=== PATIENT | male | born 1935 | race Caucasian/White ===

== ENCOUNTER 2017-07-25 10:39 | Emergency (ER) | payer OTHER ==
[~2017-07-25] VITALS: Ht 172.7 cm; Wt 75.6 kg
[~2017-07-25 10:39] MED LIST: ADVIN25/60 INH; ALBU1AER9 INH; ASPI81TA28 PO; FINA5TAB4 PO; FURO-85 PO; HYDR25TA4 PO; INSUINJ12 SQ; IPRASOL4 INH; LEVE500T13 PO; LISI-729 PO; MAGN400T6 PO; NVLGI SC; OMEP20CA9 PO; OXGN; POLY335025 PO; PRAV40TA2 PO; SENN-91 PO; TIOTCAP INH
[2017-07-25 10:42] VITALS: TEMP 36.5; O2SAT 93; Ht 172.7 cm; Wt 75.6 kg
--- NOTE | 2017-07-25 11:02 | EMERGENCY ROOM VISIT NOTE ---
History Report prepared by Shubham: Sander Quispe Under the Supervision of: Dr. Fabio Weldon M.D. First contact with patient: 10:42 Chief Complaint: HYPOGLYCEMIA Stated Complaint: ILLNESS History of Present Illness The patient is an 82 year old male who presents to the Emergency Room with complaints of constant hypoglycemia starting this morning. Per the patient's daughter. the patient has in home care, and his home health care worker gave him his normal dose of insulin this morning, and then they took his blood sugar and it was 90. Additionally he became diaphoretic and more confused than normal. They called the EMS, and his blood sugar was 40 for the EMS. The daughter states that the patient was at the bus stop on his way to a retinal specialist with his caregiver, and then he was picked up by the EMS. The patient states that he is usually on 2L of oxygen at home, and he states that he is supposed to go to wound clinic to get wrappings off of his legs which were there for swelling and seeping. He additionally notes that a week and a half ago he had a fall, and he has been having back pain, though according to the daughter he has had some back x-rays which were fine. The patient states that he uses a walker and a scooter chair at home. Additionally, the patient has been urinating more frequently recently. Source of History: patient, family Onset: this morning Position: other (generalized) Quality: other (hypoglycemia) Timing: constant Associated Symptoms: + diaphoresis, + back pain Note: Associated symptoms: Urinating more frequently and more confused than normal. Review of Systems See HPI for pertinent positives and negatives. A total of ten systems were reviewed and were otherwise negative. Past Medical & Surgical Medical Problems: (1) Cellulitis and abscess of leg (2) Chronic obstructive lung disease (3) Diabetes (4) Epilepsy (5) H/O: CVA (cerebrovascular accident) (6) HTN (hypertension) (7) Implant Spinal Infusion Pump (8) CYRIL (obstructive sleep apnea) (9) PVD (peripheral vascular disease) (10) S/P ORIF (open reduction internal fixation) fracture (11) Vascular dementia Surgical Problems: (1) H/O esophagogastroduodenoscopy (2) Previous back surgery (3) S/P femoral-popliteal bypass surgery (4) Status post hip replacement Family History Diabetes mellitus MOTHER SISTER FH: Alzheimers disease BROTHER FH: COPD (chronic obstructive pulmonary disease) BROTHER Stroke MOTHER Social History Smoking Status: Former Smoker Alcohol Use: none Drug Use: none Marital Status: single Housing Status: lives alone, assisted living Occupation Status: retired Current/Historical Medications Scheduled Aspirin (Aspirin Ec), 81 MG PO QAM Doxycycline Hyclate (Doxycycline Hyclate), 100 MG PO BID Finasteride (Proscar), 5 MG PO QAM Fluticasone Prop/Salmeterol (Advair Diskus 250/50 60 Dose), 1 PUFF INH BID Furosemide (Lasix), 20 MG PO QAM Hydrochlorothiazide (Hctz), 12.5 MG PO DAILY Insulin Aspart (Novolog), 1 DOSE SC UD Insulin Detemir (Levemir), 24 UNITS SC HS Levetiracetam (Keppra), 500 MG PO BID Magnesium Oxide (Mag-Ox), 400 MG PO QAM Multiple Vitamins W/ Minerals (Preservision Areds 2), 1 CAP PO DAILY Polyethylene Glycol 3350 (Miralax), 17 GM PO DAILY Pravastatin Sodium (Pravastatin Sodium), 40 MG PO HS Thiamine Hcl (B-1), 500 MG PO DAILY Tiotropium Rockfall (Spiriva Handihaler), 1 CAP INH DAILY Scheduled PRN Albuterol Sulf (Proventil 0.083% 2.5MG/3ML), 2.5 MG INH Q4H PRN for SOB/Wheezing Albuterol Sulfate (Proair Respiclick), 2 PUFFS PO Q4 PRN for SOB/Wheezing Lidocaine (Lidocaine), 1 PATCH TD DAILY PRN for Pain Sennosides-Docusate Sodium (Senna S), 2 TAB PO HS PRN for Constipation Triamcinolone Acet (Aristocort 0.1%), 1 APPLN TOP BID PRN for Itching Allergies Coded Allergies: Cephalosporins (Verified Allergy, Unknown, UNKNOWN, 07/25/17) Sulfa Antibiotics (Verified Allergy, Unknown, ?, 07/25/17) Physical Exam Vital Signs Date Time Temp Pulse Resp B/P (MAP) Pulse Ox O2 Delivery O2 Flow Rate FiO2 07/25/17 17:28 91 20 144/77 93 07/25/17 16:44 95 18 158/88 96 Nasal Cannula 3.0 07/25/17 15:17 91 22 154/76 96 Nasal Cannula 2.0 07/25/17 14:11 86 17 176/87 93 Nasal Cannula 2.0 07/25/17 14:01 83 17 98 Nasal Cannula 2.0 07/25/17 13:39 96 07/25/17 12:00 60 17 159/82 94 Nasal Cannula 2.0 07/25/17 11:23 76 16 184/75 93 2.0 07/25/17 11:05 80 07/25/17 10:42 36.5 81 20 150/74 86 Room Air 07/25/17 10:42 93 Nasal Cannula 2.0 Physical Exam GENERAL: Awake, alert, fatigued-appearing, in no distress HENT: Normocephalic, atraumatic. Oropharynx unremarkable. EYES: Normal conjunctiva. Sclera non-icteric. NECK: Supple. No nuchal rigidity. FROM. No JVD. RESPIRATORY: Diminished breath sounds at the bases. CARDIAC: Regular rate, normal rhythm. Extremities warm and well perfused. Pulses equal. ABDOMEN: Soft, non-distended. No tenderness to palpation. No rebound or guarding. No masses. RECTAL: Deferred. MUSCULOSKELETAL: Chest examination reveals no tenderness. The back is symmetrical on inspection without obvious abnormality. There is no CVA tenderness to palpation. No joint edema. LOWER EXTREMITIES: Calves are equal size bilaterally and non-tender. No edema. No discoloration. NEURO: Moving all extremities equally. SKIN: No rash or jaundice noted. Medical Decision & Procedures ER Provider Diagnostic Interpretation: Radiology results as stated below per my review and radiologist interpretation: CHEST ONE VIEW PORTABLE CLINICAL HISTORY: 82 years-old Male presenting with ABDOMINAL PAIN/GI. TECHNIQUE: Portable upright AP view of the chest was obtained. COMPARISON: 01/31/2015. FINDINGS: Atherosclerosis of aortic arch. Cardiac silhouette mildly enlarged. Prominence of the main pulmonary artery, unchanged. Minimal linear opacities at the lung bases greater on the left, unchanged. No new focal opacity. Mild prominence of pulmonary lung markings. Few calcified granulomata suggested. No large pleural effusion or pneumothorax. Osseous structures normal. Tubing projects over the epigastrium. IMPRESSION: 1. Mild cardiomegaly. 2. Enlargement of the main pulmonary artery suggests pulmonary hypertension, unchanged. 3. Bibasilar scarring or atelectasis. No new focal infiltrate to suggest acute cardiopulmonary disease. Electronically signed by: Kody Meraz M.D. 07/25/2017 11:17 AM Dictated Date/Time: 07/25/2017 11:15 AM THORACIC SPINE WITHOUT HISTORY: 82 years-old Male pain fall acute mid back pain status post fall COMPARISON: CT of the abdomen and pelvis 08/31/2014, CTA of the chest 11/16/2012 TECHNIQUE: Multiple axial CT images of the thoracic spine were obtained without IV contrast. A dose lowering technique was used consistent with the principals of ALARA. FINDINGS: The bones appear mildly demineralized. 65% anterior endplate compression deformity of the T12 vertebral body appears unchanged from comparison study dated 11/16/2012. There is an acute to subacute appearing 30% anterior endplate compression deformity of the T9 vertebral body without significant retropulsion identified which is new from comparison. The posterior elements appear intact. At least mild multilevel facet arthrosis and at least mild multilevel endplate spurring. Vacuum disc phenomenon is seen at several levels, notably at T8-T9 and T9-T10 and also within the lumbar spine. Spinal stimulator lead is noted coursing from a causal to cephalad approach terminating at the level of T9-T10, appearing to be within the posterior epidural space. No definite high-grade central canal stenosis. Evaluation of the central canal and neuroforamina be better evaluated by MRI. The imaged ribs appear intact. Bilateral subpleural reticular and groundglass opacities of the lung bases with emphysema and chronic appearing interstitial coarsening. Calcified hilar and mediastinal lymph nodes compatible with prior granulomatous disease. Secretions are seen within the tracheal bronchial tree. Cardiomegaly with aortic and mitral annular calcifications. Coronary arterial calcifications also noted. No acute process of the abdomen or pelvis. No aortic aneurysm. IMPRESSION: 1. 30% anterior endplate compression deformity of the T9 vertebral body is new from comparison study and appears to be acute to subacute in nature without significant retropulsion, central canal or foraminal narrowing identified. 2. Chronic 65% anterior endplate compression deformity of the T12 vertebral body. 3. Multilevel degenerative changes as above. 4. Emphysema with chronic interstitial lung disease. 5. Prior granulomatous disease. The above report was generated using voice recognition software. It may contain grammatical, syntax or spelling errors. Electronically signed by: Ronny Henderson M.D. 07/25/2017 12:57 PM Dictated Date/Time: 07/25/2017 12:48 PM HEAD WITHOUT CONTRAST (CT) CLINICAL HISTORY: 82 years-old Male with Fall, pain. Acute fall with head pain and confusion TECHNIQUE: Multiple axial CT images of the head were obtained without contrast. A dose lowering technique was utilized adhering to the principles of ALARA. COMPARISON: Head CT 12/05/2010 FINDINGS: No acute intracranial hemorrhage, midline shift, abnormal extra-axial collections, hydrocephalus or intracranial mass identified. There is moderate atrophy with ex vacuo ventriculomegaly. Cerebral vascular calcifications are seen at the level of the skull base. Ill-defined areas of low-attenuation within the white matter of the cerebral hemispheres bilaterally suggest chronic microvascular ischemic changes. Areas of remote lacunar infarction are seen within the basal ganglia. Cephalization of the right parietal lobe suggests area of remote infarction however is new from comparison. No definite acute territorial ischemia. No skull fracture. Large bilateral mastoid effusions with fluid also noted within the bilateral middle ear cavities. Postsurgical changes of the bilateral globes. Soft tissues are unremarkable. IMPRESSION: 1. No acute intracranial abnormality identified. 2. Progressive age-related findings of atrophy, chronic microvascular ischemic changes and remote lacunar infarctions of the basal ganglia. 2. Encephalomalacia of the right parietal lobe suggests area of remote infarction, however is new from comparison study 12/05/2010. The above report was generated using voice recognition software. It may contain grammatical, syntax or spelling errors. Electronically signed by: Ronny Henderson M.D. 07/25/2017 12:46 PM Dictated Date/Time: 07/25/2017 12:42 PM Laboratory Results 07/25/17 13:14 Red Blood Count 4.91, Mean Corpuscular Volume 88.0, Mean Corpuscular Hemoglobin 28.1, Mean Corpuscular Hemoglobin Concent 31.9, Mean Platelet Volume 10.6, Neutrophils (%) (Auto) 75.3, Lymphocytes (%) (Auto) 15.8, Monocytes (%) (Auto) 6.8, Eosinophils (%) (Auto) 1.7, Basophils (%) (Auto) 0.2, Neutrophils # (Auto) 4.87, Lymphocytes # (Auto) 1.02, Monocytes # (Auto) 0.44, Eosinophils # (Auto) 0.11, Basophils # (Auto) 0.01 07/25/17 13:14 Test 07/25/17 11:21 07/25/17 13:14 07/25/17 14:03 Urine Color YELLOW Urine Appearance CLEAR (CLEAR) Urine pH 7.0 (4.5-7.5) Urine Specific [place] 1.021 (1.000-1.030) Urine Protein NEG (NEG) Urine Glucose (UA) TRACE (NEG) Urine Ketones NEG (NEG) Urine Occult Blood NEG (NEG) Urine Nitrite NEG (NEG) Urine Bilirubin NEG (NEG) Urine Urobilinogen NEG (NEG) Urine Leukocyte Esterase NEG (NEG) White Blood Count 6.46 K/uL (4.8-10.8) Red Blood Count 4.91 M/uL (4.7-6.1) Hemoglobin 13.8 g/dL (14.0-18.0) Hematocrit 43.2 % (42-52) Mean Corpuscular Volume 88.0 fL (80-100) Mean Corpuscular Hemoglobin 28.1 pg (25-34) Mean Corpuscular Hemoglobin Concent 31.9 g/dl (32-36) Platelet Count 127 K/uL (130-400) Mean Platelet Volume 10.6 fL (7.4-10.4) Neutrophils (%) (Auto) 75.3 % Lymphocytes (%) (Auto) 15.8 % Monocytes (%) (Auto) 6.8 % Eosinophils (%) (Auto) 1.7 % Basophils (%) (Auto) 0.2 % Neutrophils # (Auto) 4.87 K/uL (1.4-6.5) Lymphocytes # (Auto) 1.02 K/uL (1.2-3.4) Monocytes # (Auto) 0.44 K/uL (0.11-0.59) Eosinophils # (Auto) 0.11 K/uL (0-0.5) Basophils # (Auto) 0.01 K/uL (0-0.2) RDW Standard Deviation 44.9 fL (36.4-46.3) RDW Coefficient of Variation 13.9 % (11.5-14.5) Immature Granulocyte % (Auto) 0.2 % Immature Granulocyte # (Auto) 0.01 K/uL (0.00-0.02) Anion Gap 3.0 mmol/L (3-11) Est Creatinine Clear Calc Drug Dose 65.7 ml/min Estimated GFR () 94.6 Estimated GFR (Non- 81.6 BUN/Creatinine Ratio 30.4 (10-20) Calcium Level 8.7 mg/dl (8.5-10.1) Magnesium Level 2.0 mg/dl (1.8-2.4) Total Bilirubin 0.3 mg/dl (0.2-1) Direct Bilirubin 0.1 mg/dl (0-0.2) Aspartate Amino Transf (AST/SGOT) 18 U/L (15-37) Alanine Aminotransferase (ALT/SGPT) 20 U/L (12-78) Alkaline Phosphatase 77 U/L (45-117) Troponin I < 0.015 ng/ml (0-0.045) Total Protein 7.0 gm/dl (6.4-8.2) Albumin 3.4 gm/dl (3.4-5.0) Lipase 89 U/L (73-393) Bedside Glucose 90 mg/dl (70-99) Laboratory results reviewed by me Medications Administered Medications (Trade) Dose Ordered Sig/Duke Route Start Time Stop Time Status Last Admin Dose Admin Lidocaine/ Prilocaine (Emla 2.5% Crm) 1 ea NOW ONCE EXT 07/25/17 11:15 07/25/17 11:16 DC 07/25/17 12:07 1 EA Lidocaine (Lidoderm Patch 5%) 1 patch NOW STAT TD 07/25/17 14:05 07/25/17 14:08 DC 07/25/17 14:48 1 PATCH ECG Per My Interpretation Indication: other (hypoglycemia) Rate (beats per minute): 65 Rhythm: normal sinus Findings: no acute ischemic change, other (normal axis) ED Course 1042: The patient was evaluated in room B5. A complete history and physical exam was performed. 1400: I spoke to the patient's daughter, and she felt that the patient has sufficient care at home, and she notes that he has a Dilaudid pain pump already. 1425: I reevaluated the patient, and he was agreeable to the plan. 1516: I reevaluated the patient. Discussed results and discharge instructions: he verbalized understanding and agreement. The patient is ready for discharge. Medical Decision I reviewed the patient's past medical history, medications, and the nursing notes as described above. Differential diagnosis: Etiologies such as metabolic, infection, hypo/hyperglycemia, electrolyte abnormalities, cardiac sources, intracerebral event, toxicologic, neurologic, as well as others were entertained. The patient is a 82-year-old gentleman with a past medical history of insulin- dependent diabetes who presents emergency department after being found confused in setting of receiving his morning insulin today with minimal breakfast per hpi. On arrival the patient is no acute distress, afebrile stable vital signs. Moving all extremities without difficulty. Of note, he does complain of upper back pain since he had a fall 2 weeks ago but had negative x-rays on ED visit in [place]. Glucose on arrival 60s. Patient given food and glucose subsequently stable in the 90s-110s. Labs otherwise unremarkable including troponin within normal limits. CT head negative. Chest x-ray unremarkable. Patient CT of the T-spine demonstrates a subacute compression fracture with 30% loss of height without any involvement of posterior elements. However, patient has been ambulating over the past couple of weeks and denies any new weakness, urinary retention, or loss of bowels. I did discuss these findings with the patient's daughter who feels that patient does have sufficient support at home with his home aids that are there from 8 AM to 8 PM. Patient's hypoglycemic episode today is likely due to his insulin in the setting of insufficient oral intake. The patient will return to his prior insulin dose of 8 units with meals and he will follow-up with his doctor for any additional adjustments. Patient will follow up with spine clinic as well for his subacute fracture. Findings and plan for follow-up reviewed with patient and daughter at bedside. Patient and daughter agreeable and d/c'd per discharge instructions. Medication Reconcilliation Current Medication List: was personally reviewed by me Blood Pressure Screening Patient's blood pressure: Elevated blood pressure Blood pressure disposition: Referred to PCP Impression Primary Impression: Hypoglycemia Additional Impression: Compression fracture of thoracic vertebra Scribe Attestation The scribe's documentation has been prepared under my direction and personally reviewed by me in its entirety. I confirm that the note above accurately reflects all work, treatment, procedures, and medical decision making performed by me. Departure Information Dispostion Home / Self-Care Prescriptions Lidocaine (Lidocaine) 1 Patch Tdsy 1 PATCH TD DAILY Y for Pain, #10 PATCH Prov: Fabio Weldon M.D. 07/25/17 Referrals Liliam Whiting M.D. (PCP) Fercho Prieto D.O. Forms HOME CARE DOCUMENTATION FORM, IMPORTANT VISIT INFORMATION, WORK / SCHOOL INSTRUCTIONS Patient Instructions ED Diabetes Hypoglycemia Insulin React, ED Fx Comp Vertebral, My [facility] Additional Instructions Please follow up with your primary care physician in the next 1-3 days and with our orthopedic product development specialist, Dr. Prieto, within a week for re-evaluation. Your episode of low blood sugar was likely due to insufficient oral intake in the setting of your insulin dose. Also, your back pain since her last fall is due to a compression fracture of a vertebra in your thoracic spine. Otherwise, your exam, EKG, chest xray, CT scans, and lab results did not show signs of an emergent condition at this time. Reduce your short acting insulin to 8 units with meals until seen by your doctor. Maintain a diary of your blood sugars, food intake, and insulin dosing to help inform any medication changes. Acetaminophen and Lidoderm patch for pain as needed. Drink plenty of fluids to ensure hydration. Return to the emergency department for worsening symptoms as described in the accompanying instructions. Problem Qualifiers
[2017-07-25] MEDS ORDERED: LIDOCAINE/PRILOCAINE 2.5% EA CRM EXT ONE (11:15)
--- NOTE | 2017-07-25 11:19 | DIAGNOSTIC IMAGING REPORT ---
CHEST ONE VIEW PORTABLE CLINICAL HISTORY: 82 years-old Male presenting with ABDOMINAL PAIN/GI. TECHNIQUE: Portable upright AP view of the chest was obtained. COMPARISON: 01/31/2015. FINDINGS: Atherosclerosis of aortic arch. Cardiac silhouette mildly enlarged. Prominence of the main pulmonary artery, unchanged. Minimal linear opacities at the lung bases greater on the left, unchanged. No new focal opacity. Mild prominence of pulmonary lung markings. Few calcified granulomata suggested. No large pleural effusion or pneumothorax. Osseous structures normal. Tubing projects over the epigastrium. IMPRESSION: 1. Mild cardiomegaly. 2. Enlargement of the main pulmonary artery suggests pulmonary hypertension, unchanged. 3. Bibasilar scarring or atelectasis. No new focal infiltrate to suggest acute cardiopulmonary disease. Electronically signed by: Kody Meraz M.D. 07/25/2017 11:17 AM Dictated Date/Time: 07/25/2017 11:15 AM
[2017-07-25] MEDS ORDERED: NVLG SC (12:31)
[2017-07-25] MEDS ORDERED: ALBINS/ INH (12:31)
[2017-07-25] MEDS ORDERED: THIA1TAB PO (12:31)
[2017-07-25] MEDS ORDERED: TRMCR130WC TOP (12:31)
[2017-07-25] MEDS ORDERED: SPRIN/30 INH (12:31)
[2017-07-25] MEDS ORDERED: ALBU18002 PO (12:31)
[2017-07-25] MEDS ORDERED: VBRT100 PO (12:31)
[2017-07-25] MEDS ORDERED: MULT60CA PO (12:31)
[2017-07-25] MEDS ORDERED: LVMI SC (12:31)
[2017-07-25] MEDS ORDERED: POLY335019 PO (12:32)
--- NOTE | 2017-07-25 12:47 | DIAGNOSTIC IMAGING REPORT ---
HEAD WITHOUT CONTRAST (CT) CLINICAL HISTORY: 82 years-old Male with Fall, pain. Acute fall with head pain and confusion TECHNIQUE: Multiple axial CT images of the head were obtained without contrast. A dose lowering technique was utilized adhering to the principles of ALARA. COMPARISON: Head CT 12/05/2010 FINDINGS: No acute intracranial hemorrhage, midline shift, abnormal extra-axial collections, hydrocephalus or intracranial mass identified. There is moderate atrophy with ex vacuo ventriculomegaly. Cerebral vascular calcifications are seen at the level of the skull base. Ill-defined areas of low-attenuation within the white matter of the cerebral hemispheres bilaterally suggest chronic microvascular ischemic changes. Areas of remote lacunar infarction are seen within the basal ganglia. Cephalization of the right parietal lobe suggests area of remote infarction however is new from comparison. No definite acute territorial ischemia. No skull fracture. Large bilateral mastoid effusions with fluid also noted within the bilateral middle ear cavities. Postsurgical changes of the bilateral globes. Soft tissues are unremarkable. IMPRESSION: 1. No acute intracranial abnormality identified. 2. Progressive age-related findings of atrophy, chronic microvascular ischemic changes and remote lacunar infarctions of the basal ganglia. 2. Encephalomalacia of the right parietal lobe suggests area of remote infarction, however is new from comparison study 12/05/2010. The above report was generated using voice recognition software. It may contain grammatical, syntax or spelling errors. Electronically signed by: Ronny Henderson M.D. 07/25/2017 12:46 PM Dictated Date/Time: 07/25/2017 12:42 PM
--- NOTE | 2017-07-25 12:58 | DIAGNOSTIC IMAGING REPORT ---
THORACIC SPINE WITHOUT HISTORY: 82 years-old Male pain fall acute mid back pain status post fall COMPARISON: CT of the abdomen and pelvis 08/31/2014, CTA of the chest 11/16/2012 TECHNIQUE: Multiple axial CT images of the thoracic spine were obtained without IV contrast. A dose lowering technique was used consistent with the principals of LOGAN. FINDINGS: The bones appear mildly demineralized. 65% anterior endplate compression deformity of the T12 vertebral body appears unchanged from comparison study dated 11/16/2012. There is an acute to subacute appearing 30% anterior endplate compression deformity of the T9 vertebral body without significant retropulsion identified which is new from comparison. The posterior elements appear intact. At least mild multilevel facet arthrosis and at least mild multilevel endplate spurring. Vacuum disc phenomenon is seen at several levels, notably at T8-T9 and T9-T10 and also within the lumbar spine. Spinal stimulator lead is noted coursing from a causal to cephalad approach terminating at the level of T9-T10, appearing to be within the posterior epidural space. No definite high-grade central canal stenosis. Evaluation of the central canal and neuroforamina be better evaluated by MRI. The imaged ribs appear intact. Bilateral subpleural reticular and groundglass opacities of the lung bases with emphysema and chronic appearing interstitial coarsening. Calcified hilar and mediastinal lymph nodes compatible with prior granulomatous disease. Secretions are seen within the tracheal bronchial tree. Cardiomegaly with aortic and mitral annular calcifications. Coronary arterial calcifications also noted. No acute process of the abdomen or pelvis. No aortic aneurysm. IMPRESSION: 1. 30% anterior endplate compression deformity of the T9 vertebral body is new from comparison study and appears to be acute to subacute in nature without significant retropulsion, central canal or foraminal narrowing identified. 2. Chronic 65% anterior endplate compression deformity of the T12 vertebral body. 3. Multilevel degenerative changes as above. 4. Emphysema with chronic interstitial lung disease. 5. Prior granulomatous disease. The above report was generated using voice recognition software. It may contain grammatical, syntax or spelling errors. Electronically signed by: Ronny Henderson M.D. 07/25/2017 12:57 PM Dictated Date/Time: 07/25/2017 12:48 PM
[2017-07-25 13:23] LABS: BASO % 0.2 %; BASO ABS # 0.01 K/uL (0-0.2); EOS % 1.7 %; EOS ABS # 0.11 K/uL (0-0.5); HEMATOCRIT 43.2 % (42-52); HEMOGLOBIN 13.8 g/dL (14.0-18.0); IG# 0.01 K/uL (0.00-0.02); LYMPH % 15.8 %; LYMPH ABS # 1.02 K/uL (1.2-3.4); MEAN CORPUSCULAR HEMOGLOBIN 28.1 pg (25-34); MEAN CORPUSCULAR HGB CONC 31.9 g/dl (32-36); MEAN PLATELET VOLUME 10.6 fL (7.4-10.4); MONO % 6.8 %; MONO ABS # 0.44 K/uL (0.11-0.59); NEUT % 75.3 %; NEUT ABS # 4.87 K/uL (1.4-6.5); PLATELET COUNT 127 K/uL (130-400); RED CELL DISTRIBUTION WIDTH CV 13.9 % (11.5-14.5); RED CELL DISTRIBUTION WIDTH SD 44.9 fL (36.4-46.3); WHITE BLOOD COUNT 6.46 K/uL (4.8-10.8)
[2017-07-25 13:46] LABS: ALBUMIN 3.4 gm/dl (3.4-5.0); CALCIUM 8.7 mg/dl (8.5-10.1); CREATININE 0.81 mg/dl (0.60-1.40); POTASSIUM 4.4 mmol/L (3.5-5.1)
[2017-07-25] MEDS ORDERED: DEXTROSE 50% 50 ML SYR IV STA (13:56)
[2017-07-25] MEDS ORDERED: LIDODERM (LIDOCAINE) PATCH 5% TD STA (14:05)
[2017-07-25] MEDS ORDERED: LDDP5 TD (15:18)
[2017-07-25 17:28] VITALS: BP 144/77; PULSE 91; O2SAT 93
== END 2017-07-25 17:28 | disposition home or self-care (01) ==
LOC: EDBD 10:39 → C.EDB 10:41
DX: E11.649 Type 2 diabetes mellitus with hypoglycemia without coma (principal); S22.000A Wedge compression fracture of unspecified thoracic vertebra, initial encounter for closed fracture; W19.XXXA Unspecified fall, initial encounter; I10 Essential (primary) hypertension; Z79.4 Long term (current) use of insulin; J44.9 Chronic obstructive pulmonary disease, unspecified; G40.909 Epilepsy, unspecified, not intractable, without status epilepticus; I73.9 Peripheral vascular disease, unspecified; F01.50 Vascular dementia, unspecified severity, without behavioral disturbance, psychotic disturbance, mood disturbance, and anxiety; Z86.73 Personal history of transient ischemic attack (TIA), and cerebral infarction without residual deficits; Z88.1 Allergy status to other antibiotic agents; Z88.2 Allergy status to sulfonamides

== ENCOUNTER 2018-02-28 14:14 | Inpatient (IN) ==
[2018-03-01] MEDS ORDERED: LIDOCAINE/PRILOCAINE 2.5% EA CRM EXT PRN (02:03)
--- NOTE | 2018-03-01 02:13 | History & Physical Report ---
Date of Service March 01, 2018 Assessment & Plan (1) Encephalopathy: Episodic symptoms Possibly from chronic hypercapnia; narcosis, hx chronic pain on Dilaudid pump Rule out intracranial bleed given anticoagulation from recent confinement at [facility] for recent pulmonary embolism Acute PE Past hx DVT as per records Recent confinement at [facility] for left hip fracture not requiring operative intervention. CAD/PVD status post surgery/CVA as per records, Chronic respiratory failure 2 to COPD on supplemental O2. CYRIL as per records ( ? CPAP compliance), DM2 insulin requiring, hypoglycemic episodes noted during [facility] confinement from a few days ago Suboptimal control as of recent outpatient hemoglobin A1c of 13.8 last June 2017 hypertension, slightly elevated hx subdural hematoma as per records seizure disorder, stable on Keppra ambulatory dysfunction hx MRSA as per records Chronic anemia, hemoglobin at baseline chronic thrombocytopenia past tobacco abuse/alcohol abuse as per records. PCU CT head RE episodic encephalopathy Supplemental O2 Baseline ABG TTE RE episodic chest pain Low-dose IV heparin if no bleed on CT head for acute PE Hematology consult RE recommendations for oral anticoagulation for acute PE, history chronic thrombocytopenia Pain management follow-up evaluation regarding Dilaudid pain pump Hold basal insulin for now, ISS BG goal 140-180, check hemoglobin A1c PT OT eval Social service RE discharge planning DVT prophylaxis. IV heparin if no bleed on CT head Full code as per son, Mr. Mart Alcala. He requests that his sister/patient POA, Ms. Sonia Will be updated by providers of plan of care in AM. (contact number [phone].) Present on Admission?: Yes History of Present Illness Chief Complaint: Pain pump follow-up evaluation as per records Primary Care Provider: Dr. Aguirre History obtained from patient, family, and records. Limited history obtained from patient secondary to marked hearing impairment. Medical history significant for CAD/PVD/CVA as per records, chronic respiratory failure 2 to COPD on supplemental O2. CYRIL as per records ( ? CPAP compliance), DM2 insulin requiring, chronic back pain secondary to postlaminectomy syndrome/ chronic neuropathy on chronic Dilaudid pain pump, hypertension, history of subdural hematoma as per records, seizure disorder, past hx DVT, pulmonary embolism ambulatory dysfunction, BPH, hearing loss, history of MRSA endocarditis status post Vancomycin treatment, Chronic anemia (baseline hemoglobin of 12), chronic thrombocytopenia, past tobacco abuse/alcohol abuse as per records. 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 Patient admitted at [facility] February 25, 2018 for left hip pain secondary to mechanical fall. X-ray showed nondisplaced, oblique fracture left greater trochanter. No operative intervention as per Cardiology. Last February 27, patient noted to have increasing oxygen requirements. CT angio showed chronic pleural changes lung bases, with small right pleural effusion, atelectasis. Peripheral pulmonary emboli right lower lobe. Patient started on weight-based Lovenox every 12 hours with plan to transition to Eliquis. LE venous Doppler ultrasound results pending as per discharge note. Lethargy noted yesterday. Improved mentation after IV Narcan administration. Patient transferred to [facility] for Dilaudid pain pump evaluation by Pain Management. On the ambulance and route to [facility] from [facility], patient had chest pain complaints prompting ambulance to bring patient back to [facility] for further evaluation. Unremarkable chest pain workup at [facility] as per ER provider. Patient arrived as a direct admit at telemetry. Currently denies unusual chest pain, SOB. MEDICAL HISTORY: As above. SURGICAL HISTORY: 1. Hernia repair. 2. Femoropopliteal bypass. 3. Mastoidectomy. 4. ORIF. 5. Hip surgery. 6. Spine surgery. 7. Hip replacement. FAMILY HISTORY: There is a family history of heart disease. PERSONAL SOCIAL HISTORY: Remote tobacco abuse. 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 Lives alone. Allergies Allergy/AdvReac Type Severity Reaction Status Date / Time Cephalosporins Allergy Unknown UNKNOWN Verified 03/01/18 01:58 Sulfa (Sulfonamide Allergy Unknown ? Verified 03/01/18 01:58 Antibiotics) sulfamethoxazole Allergy Unknown Rash Verified 03/01/18 02:13 [From Bactrim] trimethoprim [From Bactrim] Allergy Unknown Rash Verified 03/01/18 02:13 Home Medications Home Medications Medication Instructions Recorded Confirmed Type albuterol sulfate 2.5 mg/3 mL 2.5 mg INH Q4H PRN 12/05/17 03/01/18 History (0.083 %) solution for nebulization albuterol sulfate 90 mcg/actuation 2 puffs INH Q4H PRN 12/05/17 03/01/18 History breath activated powder inhaler aspirin 81 mg tablet,delayed 81 mg PO DAILY 12/05/17 03/01/18 History release finasteride 5 mg tablet 5 mg PO DAILY 12/05/17 03/01/18 History fluticasone 250 mcg-salmeterol 50 1 inha INH BID 12/05/17 03/01/18 History mcg/dose blistr powdr for inhalation furosemide 20 mg tablet 20 mg PO DAILY 12/05/17 03/01/18 History hydrochlorothiazide 12.5 mg tablet 12.5 mg PO DAILY 12/05/17 03/01/18 History insulin detemir (U-100) 100 24 units SQ QPM ml 12/05/17 03/01/18 History unit/mL subcutaneous solution levetiracetam 500 mg tablet 500 mg PO BID 12/05/17 03/01/18 History magnesium oxide 400 mg capsule 400 mg PO DAILY cap 12/05/17 03/01/18 History polyethylene glycol 3350 17 gram 17 gm PO DAILY 12/05/17 03/01/18 History oral powder packet pravastatin 40 mg tablet 40 mg PO DAILY 12/05/17 03/01/18 History sennosides 8.6 mg-docusate sodium 2 tab PO HS PRN tab 12/05/17 03/01/18 History 50 mg tablet thiamine HCl (vitamin B1) 500 mg 500 mg PO DAILY 12/05/17 03/01/18 History tablet tiotropium bromide 18 mcg capsule 1 cap INH DAILY 12/05/17 03/01/18 History with inhalation device triamcinolone acetonide 0.1 % 1 appln TOP BID MDD do not use 12/05/17 03/01/18 History topical ointment longer than 14 days acetaminophen 650 mg PO Q4 PRN 03/01/18 03/01/18 History ketoconazole 1 applic TOPICAL BID 03/01/18 03/01/18 History metformin 1,000 mg PO BIDM 03/01/18 03/01/18 History vit C,N-Dx-azlyu-lutein-zeaxan 1 tab PO DAILY 03/01/18 03/01/18 History [PreserVision AREDS-2] Past Med/Surg History Social History Current Living Situation: Alone Current Living Situation Comment: living at the [facility] Other Information That Helps Us Care for You: No Feels Safe at Home: Yes Smoking Status: Former smoker Hx Alcohol Use: No Hx Substance Use: No Beliefs That Will Affect Care: None Preferred Language: Turkish Communication Ability: Impaired Senior Clinical Data Analyst Required: No Review of Systems Could not be reliably obtained Physical Exam 2 Vital Signs (Past 24 Hours): Last Vital Signs Temp 36.8 C 03/01/18 01:00 Pulse 71 03/01/18 01:00 Resp 20 03/01/18 01:00 BP 153/73 H 03/01/18 01:00 Pulse Ox 97 03/01/18 01:00 Physical Exam: GENERAL: uncomfortable, slightly agitated, hard of hearing, no respiratory distress SKIN: Multiple ecchymotic areas, pallor, warm HEENT: Pale palpebral conjunctivae, no ptosis, dry buccal mucosa, nasal cannula in place NECK : Supple, no tenderness CHEST : Decreased breath sounds, no tenderness HEART : RRR, systolic murmur ABDOMEN: Some distention, nontender EXTREMITIES : minimal LE swelling/tenderness, no other conspicuous deformities noted NEUROLOGIC : Disoriented, no facial asymmetry, hard of hearing, gait and stance not assessed. Results & Data Laboratory Results Laboratory Results WBC 4.78 K/uL (4.8-10.8) L 03/01/18 01:53 RBC 4.39 M/uL (4.7-6.1) L 03/01/18 01:53 Hgb 12.5 g/dL (14.0-18.0) L 03/01/18 01:53 Hct 40.1 % (42-52) L 03/01/18 01:53 MCV 91.3 fL (80-100) 03/01/18 01:53 MCH 28.5 pg (25-34) 03/01/18 01:53 MCHC 31.2 g/dL (32-36) L 03/01/18 01:53 RDW Std Deviation 48.1 fL (36.4-46.3) H 03/01/18 01:53 RDW Coeff of [place] 14.3 % (11.5-14.5) 03/01/18 01:53 Plt Count 103 K/uL (130-400) L 03/01/18 01:53 MPV 10.8 fL (7.4-10.4) H 03/01/18 01:53 Immature Gran % (Auto) 0.4 % 03/01/18 01:53 Neut % (Auto) 54.2 % 03/01/18 01:53 Lymph % (Auto) 28.7 % 03/01/18 01:53 Desha % (Auto) 13.4 % 03/01/18 01:53 Eos % (Auto) 3.1 % 03/01/18 01:53 Baso % (Auto) 0.2 % 03/01/18 01:53 Immature Gran # (Auto) 0.02 K/uL (0.00-0.02) 03/01/18 01:53 Neut # (Auto) 2.59 K/uL (1.4-6.5) 03/01/18 01:53 Lymph # (Auto) 1.37 K/uL (1.2-3.4) 03/01/18 01:53 Desha # (Auto) 0.64 K/uL (0.11-0.59) H 03/01/18 01:53 Eos # (Auto) 0.15 K/uL (0-0.5) 03/01/18 01:53 Baso # (Auto) 0.01 K/uL (0-0.2) 03/01/18 01:53 PT 10.5 Seconds (9.0-12.0) 03/01/18 01:53 INR 1.0 (0.9-1.1) 03/01/18 01:53 APTT 29.1 Seconds (21.0-31.0) 03/01/18 01:53 PTT Ratio 1.1 03/01/18 01:53 ABG pH Cancelled 03/01/18 01:53 ABG pCO2 Cancelled 03/01/18 01:53 ABG pO2 Cancelled 03/01/18 01:53 ABG HCO3 Cancelled 03/01/18 01:53 ABG O2 Saturation Cancelled 03/01/18 01:53 ABG Base Excess Cancelled 03/01/18 01:53 Tyson Test Cancelled 03/01/18 01:53 VBG pH 7.36 (7.36-7.41) 03/01/18 01:53 VBG pCO2 75 mmHg (38-50) H 03/01/18 01:53 VBG pO2 43 mmHg 03/01/18 01:53 VBG HCO3 41 mmol/L 03/01/18 01:53 VBG O2 Saturation 73.9 % 03/01/18 01:53 VBG Base Excess 12.6 mEq/L 03/01/18 01:53 Barometric Pressure 733.0 mm/Hg 03/01/18 01:53 Oxygen Given Cancelled 03/01/18 01:53 Sodium 139 mmol/L (136-145) 03/01/18 01:53 Potassium 4.4 mmol/L (3.5-5.1) 03/01/18 01:53 Chloride 97 mmol/L (98-107) L 03/01/18 01:53 Carbon Dioxide 39 mmol/L (21-32) H 03/01/18 01:53 Anion Gap 3.0 (3-11) 03/01/18 01:53 BUN 19 mg/dl (7-18) H 03/01/18 01:53 Creatinine 0.68 mg/dl (0.6-1.4) 03/01/18 01:53 Est Cr Clr Drug Dosing 78.2 ml/min 03/01/18 01:53 Est GFR ( Amer) 101.6 03/01/18 01:53 Est GFR (Non-Af Amer) 87.7 03/01/18 01:53 BUN/Creatinine Ratio 27.2 (10-20) H 03/01/18 01:53 Glucose 78 mg/dl (70-99) 03/01/18 01:53 Calcium 8.4 mg/dl (8.5-10.1) L 03/01/18 01:53 Magnesium 1.9 mg/dl (1.8-2.4) 03/01/18 01:53
[2018-03-01 02:19] LABS: Basophils # (auto) 0.01 K/uL (0-0.2); Basophils % (auto) 0.2 %; Eosinophils # (auto) 0.15 K/uL (0-0.5); Eosinophils % (auto) 3.1 %; Hematocrit (blood only) 40.1 % (42-52); Hemoglobin 12.5 g/dL (14.0-18.0); Immature Granulocytes # (auto) 0.02 K/uL (0.00-0.02); Immature Granulocytes % (auto) 0.4 %; Lymphocytes # (auto) 1.37 K/uL (1.2-3.4); Lymphocytes % (auto) 28.7 %; Mean Corpuscular Hgb Conc 31.2 g/dL (32-36); Mean Corpuscular Volume 91.3 fL (80-100); Mean Platelet Volume 10.8 fL (7.4-10.4); Monocytes # (auto) 0.64 K/uL (0.11-0.59); Monocytes % (auto) 13.4 %; Neutrophils # (auto) 2.59 K/uL (1.4-6.5); Neutrophils % (auto) 54.2 %; Platelet Count 103 K/uL (130-400); RDW Coefficient of Variation 14.3 % (11.5-14.5); RDW Standard Deviation 48.1 fL (36.4-46.3); Red Blood Count 4.39 M/uL (4.7-6.1); White Blood Count 4.78 K/uL (4.8-10.8)
[2018-03-01 02:25] LABS: Partial Thromboplastin Ratio 1.1; Partial Thromboplastin Time 29.1 Seconds (21.0-31.0); Prothrombin Time 10.5 Seconds (9.0-12.0)
[2018-03-01] MEDS ORDERED: NITROGLYCERIN SL 0.4 MG/TAB TAB SL PRN (02:26)
[2018-03-01] MEDS ORDERED: CARBOHYDRATES FOR HYPOGLYCEMIA PO PRN (02:28)
[2018-03-01] MEDS ORDERED: MoRPHine SULFATE 2 MG/ML CARP IV PRN (02:28)
[2018-03-01] MEDS ORDERED: GLUCOSE 10 TABS/TUBE PO PRN (02:28)
[2018-03-01] MEDS ORDERED: GLUCOSE 40% GEL 15 GM TUBE PO PRN (02:28)
[2018-03-01] MEDS ORDERED: GLUCAGON FOR INJ 1 MG VIAL SQ PRN (02:28)
[2018-03-01] MEDS ORDERED: DEXTROSE 50% 50 ML SYRINGE IV PRN (02:28)
[2018-03-01] MEDS ORDERED: OXYCODONE HCL IR 5 MG TAB (IMMEDIATE RELEASE) PO PRN (02:28)
[2018-03-01 02:33] LABS: Base Excess VBG 12.6 mEq/L; Oxygen Saturation VBG 73.9 %; pH VBG 7.36 (7.36-7.41)
[2018-03-01 02:34] LABS: BUN Creatinine Ratio 27.2 (10-20); Blood Urea Nitrogen 19 mg/dl (7-18); Calcium 8.4 mg/dl (8.5-10.1); Carbon Dioxide 39 mmol/L (21-32); Chloride 97 mmol/L (98-107); Creatinine Clr Calc Pharmacy 78.2 ml/min; Est GFR (African American) 101.6; Est GFR (Non-African American) 87.7; Glucose 78 mg/dl (70-99); Magnesium 1.9 mg/dl (1.8-2.4); Potassium 4.4 mmol/L (3.5-5.1); Sodium 139 mmol/L (136-145)
[2018-03-01] MEDS ORDERED: DEXTROSE 50% 50 ML SYRINGE IV ONE (02:51)
[2018-03-01] MEDS ORDERED: MAGNESIUM SULFATE / D5W 1 GM/100 ML BAG IV ONE (02:52)
[2018-03-01] MEDS ORDERED: Heparin IV Low Dose *NO* Bolus STA (02:52)
[2018-03-01] MEDS ORDERED: ALBUT/IPRATROP 3MG/0.5MG NEB 3 ML VIAL NEB PRN (03:13)
[2018-03-01] MEDS ORDERED: HEPARIN LOW DOSE DEXTROSE 25,000 UNITS/500 ML IV SCH (03:17)
[2018-03-01] MEDS ORDERED: POLYETHYLENE (MIRALAX) 17 GM PACK PO PRN (03:58)
[2018-03-01] MEDS ORDERED: OLANZapine 10 MG/2.1 ML SDV IM PRN (04:38)
[2018-03-01] MEDS ORDERED: NALOXONE HCL 0.4 MG/1 ML VIAL/CARP IV PRN (05:01)
[2018-03-01 05:15] LABS: Troponin I < 0.015 ng/ml (0-0.045)
[2018-03-01 08:25] LABS: Estimated Average Glucose 160 mg/dl
[2018-03-01] MEDS ORDERED: POLYETHYLENE (MIRALAX) 17 GM PACK PO SCH (09:00)
--- NOTE | 2018-03-01 09:01 | Pain Management Consultation ---
Date of Consultation March 01, 2018 Assessment & Plan (1) Fracture of greater trochanter of left femur: (2) History of lumbosacral spine surgery: Present on Admission?: Yes (3) Presence of intrathecal pump: Present on Admission?: Yes (4) CYRIL (obstructive sleep apnea): Present on Admission?: Yes (5) H/O: CVA (cerebrovascular accident): Present on Admission?: Yes (6) Vascular dementia: Present on Admission?: Yes (7) Pulmonary embolism: (8) Ambulatory dysfunction: 1. Patient's intrathecal pump was interrogated. The logs were reviewed. There were no abnormal findings with regards to review of the logs as the intrathecal pump appears to be functioning appropriately. The patient 's intrathecal hydromorphone dose has been stable since 2011. We find it highly unlikely that there is a relationship between his reported mental status changes and the intrathecal hydromorphone dose. The patient's mental status appears to be consistent with our experience with the patient over the past 6 years. Patient is extremely hard of hearing which does make communication difficult. He is frequently very sedate and has severe obstructive sleep apnea and is noncompliant with CPAP per discussion with his daughter. With that being said, will diminish his intrathecal hydromorphone dose by 25% at this time until further workup can be completed by hospitalist team. Refer to pump print-out in EMR for details. Would recommend following through with imaging of the head due to his history of fall-CT scan has been requested. 2. Will discontinue his as needed morphine and oxycodone. Patient may utilize hydrocodone 5/325 for as needed breakthrough pain. 3. Due to his recent fall recommend imaging of the thoracolumbar spine for evaluation of his intrathecal catheter to rule out fracture. Will request xrays studies for this evaluation. Present on Admission?: Yes History of Present Illness Reason for Consultation: Evaluation of intrathecal pain pump Attending Physician: Thee Vazquez MD History of Present Illness Mr. Yonathan Alcala is an 82-year-old white male who is well-known to the pain service due to outpatient care of his intrathecal pump currently utilizing hydromorphone and clonidine for treatment of his chronic intractable low back pain secondary to lumbar postlaminectomy syndrome. Patient was admitted to [facility] on 02/25/2018 for left sided hip pain status post a fall with x-ray revealing a nondisplaced oblique fracture of the greater trochanter. It was deemed to be a nonoperable fracture upon this admission. The patient was reported to have increasing oxygen requirements upon his admission and was found to have chronic pleural changes in the lung bases with a small right pleural effusion and atelectasis with peripheral pulmonary emboli in the right lower lobe. He was then placed on Lovenox every 12 hours and a venous Doppler of the lower extremities was reportedly pending at the time of his transfer to [facility]. They were noting lethargy at [facility] which reportedly responded to IV Narcan. [facility] physician was concerned about his lethargy and mentation possibly being related to his intrathecal hydromorphone dosing and requested transfer to our hospital. They did not image the patient's head reportedly during his inpatient stay at [facility]. A CT scan of the brain was attempted last evening at [facility] upon transfer which was aborted due to the patient being somewhat combative. Mr. Alcala upon questioning today was reporting no significant pain. He is reporting some soreness in the left hip region. He reportedly suffered a fall while attempting to change out his oxygen tank. He denies any changes in his location or characteristic of his chronic pain in the axial lumbar spine. He reports minimal to no discomfort in the lumbar region at this time. He denies a radicular pattern to pain complaints. He has reportedly been out of bed without significant difficulties. The patient denies all other constitutional complaints at this time. Plan of care was discussed with Dr. Sahra Crespo. Pain Assessment [facility] Combined Pain Scale: 5-Moderate - Cannot perform normal tasks without increase in pain Pain scale - at its best (0-10): 1 Pain scale - at its worst (0-10): 5 Allergies Allergy/AdvReac Type Severity Reaction Status Date / Time Cephalosporins Allergy Unknown UNKNOWN Verified 03/01/18 01:58 Sulfa (Sulfonamide Allergy Unknown ? Verified 03/01/18 01:58 Antibiotics) sulfamethoxazole Allergy Unknown Rash Verified 03/01/18 02:13 [From Bactrim] trimethoprim [From Bactrim] Allergy Unknown Rash Verified 03/01/18 02:13 Home Medications Home Medications Medication Instructions Recorded Confirmed Type albuterol sulfate 2.5 mg/3 mL 2.5 mg INH Q4H PRN 12/05/17 03/01/18 History (0.083 %) solution for nebulization albuterol sulfate 90 mcg/actuation 2 puffs INH Q4H PRN 12/05/17 03/01/18 History breath activated powder inhaler aspirin 81 mg tablet,delayed 81 mg PO DAILY 12/05/17 03/01/18 History release finasteride 5 mg tablet 5 mg PO DAILY 12/05/17 03/01/18 History fluticasone 250 mcg-salmeterol 50 1 inha INH BID 12/05/17 03/01/18 History mcg/dose blistr powdr for inhalation furosemide 20 mg tablet 20 mg PO DAILY 12/05/17 03/01/18 History hydrochlorothiazide 12.5 mg tablet 12.5 mg PO DAILY 12/05/17 03/01/18 History insulin detemir (U-100) 100 24 units SQ QPM ml 12/05/17 03/01/18 History unit/mL subcutaneous solution levetiracetam 500 mg tablet 500 mg PO BID 12/05/17 03/01/18 History magnesium oxide 400 mg capsule 400 mg PO DAILY cap 12/05/17 03/01/18 History polyethylene glycol 3350 17 gram 17 gm PO DAILY 12/05/17 03/01/18 History oral powder packet pravastatin 40 mg tablet 40 mg PO DAILY 12/05/17 03/01/18 History sennosides 8.6 mg-docusate sodium 2 tab PO HS PRN tab 12/05/17 03/01/18 History 50 mg tablet thiamine HCl (vitamin B1) 500 mg 500 mg PO DAILY 12/05/17 03/01/18 History tablet tiotropium bromide 18 mcg capsule 1 cap INH DAILY 12/05/17 03/01/18 History with inhalation device triamcinolone acetonide 0.1 % 1 appln TOP BID MDD do not use 12/05/17 03/01/18 History topical ointment longer than 14 days acetaminophen 650 mg PO Q4 PRN 03/01/18 03/01/18 History ketoconazole 1 applic TOPICAL BID 03/01/18 03/01/18 History metformin 1,000 mg PO BIDM 03/01/18 03/01/18 History vit C,O-Iv-lxbpe-lutein-zeaxan 1 tab PO DAILY 03/01/18 03/01/18 History [PreserVision AREDS-2] Patient History Medical History Pulmonary embolism Ambulatory dysfunction Fracture of greater trochanter of left femur Presence of intrathecal pump (Chronic) Diabetes (Chronic) CYRIL (obstructive sleep apnea) (Chronic) PVD (peripheral vascular disease) (Chronic) HTN (hypertension) (Chronic) H/O: CVA (cerebrovascular accident) (Chronic) Epilepsy (Chronic) Vascular dementia (Chronic) S/P ORIF (open reduction internal fixation) fracture (Chronic) "Trochanteric Fx " CO2 retention (Chronic) Surgical History History of lumbosacral spine surgery (Chronic) History of open reduction and internal fixation (ORIF) procedure (Chronic) S/P femoral-popliteal bypass surgery (Chronic) Previous back surgery (Chronic) Status post hip replacement (Chronic) "Right" H/O esophagogastroduodenoscopy (Chronic) Social History Current Living Situation: Alone Current Living Situation Comment: living at the [facility] Other Information That Helps Us Care for You: No Feels Safe at Home: Yes Smoking Status: Former smoker Hx Alcohol Use: No Hx Substance Use: No Beliefs That Will Affect Care: None Preferred Language: [place] Timorese Communication Ability: Impaired 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: No Review of Systems Constitutional: Negative for fever, chills, sweats Eyes: Negative for eye pain, photophobia, drainage Ear, nose, mouth, throat: Negative for ear pain, nasal congestion, mouth lesions , change in voice Respiratory: Negative for wheezing, sputum production Cardiovascular: Negative for chest pain, palpitations, calf pain Gastrointestinal: Negative for abdominal pain, belching, bloating Genitourinary: Negative for dysuria, urinary incontinence, urinary urgency Musculoskeletal: Negative for deformities Integumentary: Negative for nail changes, skin yellowing, pruritus Neurological: Negative for abnormal speech, seizure type activity Physical Exam 2 Vital Signs (Past 24 Hours): Last Vital Signs Temp 37.0 C 03/01/18 04:35 Pulse 76 03/01/18 04:35 Resp 19 03/01/18 04:35 BP 139/63 03/01/18 04:35 Pulse Ox 95 03/01/18 04:35 Physical Exam: General: Patient was lying quietly upon entering the room in no acute distress. Patient is extremely hard of hearing. Communication is somewhat difficult due to his hearing but this appears to be baseline. His mental status appears to be baseline compared to prior experiences. He was aware that he was at [facility] but reported that it was Tuesday instead of Tuesday. Head: Normocephalic atraumatic. Neck: Supple without adenopathy. Upper extremities: Strength testing 4/5 throughout without focal deficit. Sensation intact. Chest: Nontender to palpation of the costosternal junction. Nontender over the posteriolateral chest wall to palpation or AP/lateral compression. Abdomen: Pump present in the right lower quadrant without evidence of edema, erythema or skin breakdown. Pump is non-mobile. Pump is nontender to palpation. Back/spine: Complete loss of lumbar lordosis with well-healed in the surgical incision. Minimal tenderness of the lumbosacral region which is nonfocal. Lower extremities: Moderate discomfort of the left hip with range of motion activities. Trace ankle edema. Chronic hemosiderosis. Neurologic: Cranial nerves were grossly intact. Ambulation was not witnessed.
[2018-03-01] MEDS: INSULIN ASPART 100 UNITS/ML 3 ML PEN SC SCH ×4 (10:17→20:23)
--- NOTE | 2018-03-01 12:33 | Palliative Care Consultation ---
Date of Consultation March 01, 2018 Assessment & Plan (1) Goals of care, counseling/discussion: -82 year old male with PMH moderate vascular dementia, CVA, subdural hematoma, hearing impairment, spinal surgery, chronic pain with intrathecal pain pump, CYRIL noncompliant with CPAP, CO2 retention and others presented from [facility] for confusion, s/p fall with left trochanter fracture, and evaluation of his pain pump. Patient also has PE for which he is on IV heparin gtt. -Patient is extremely hard of hearing which makes assessment difficult. He could tell me his name and that he was in the hospital, and that he remembers falling. He could not tell me the day, date, year, or anything about his medical history. -I called and spoke with patient's daughter, Sonia Will, for an extended period of time. -Also appreciate pain management's note which gives further insight into patient 's baseline functioning. -Per patient's daughter, he lives in an apartment with waiver service caregivers 12 hours per day. He is alone the other 12 hours. He is still able to dress and bathe himself, able to ambulate. Has been declining recently, however. He has frequent bouts of anger and agitation even at home. -FAST score 5 at baseline, indicating moderate dementia. This was discussed with his daughter. -Sonia is aware that patient is not currently able to make his own decisions. We discussed patient's wishes. She states that patient never wanted to live in a debilitated state and would not want aggressive or invasive measures such as CPR, intubation, surgeries, etc. She is aware of the fracture and that there is no plan for surgery. -Discussed CODE STATUS. Sonia would like her father to be DNR. Should patient decline, no escalation in care. For now, continue with current treatment. -Discussed anticoagulation and the fact that with patient's history of subdural bleed, falls, and picking of his skin and scabs, he is not a candidate for long- term anticoagulation. Sonia stated, "I don't want my dad bleeding out," and is fine with no long-term AC. Okay to continue heparin while in hospital. -As far as long-term placement, Sonia states she wants a referral to [facility]. She wants patient to undergo rehab initially and see how he does. If he gets well enough to go home, she will see if waiver services can be increased to 24h/day. If patient does not improve, she realizes he will need long-term placement at SNF. -Pain pump managed by Lillian Gamboa PA-C and pain management team. They have been following with patient for 6 years. -Will reassess patient tomorrow and continue to speak with his daughter about goals of care. (2) Vascular dementia: -FAST score 5 at baseline. -Discussed with patient's daughter that with each illness and hospitalization, dementia can worsen and complicates recovery process. She verbalized understanding and states that she has seen this pattern occur with previous hospitalizations. (3) Fracture of greater trochanter of left femur: -2/2 fall. No plan for surgery. Patient would not want surgery per his daughter, Sonia Will. (4) Presence of intrathecal pump: -Managed by pain management team. -Was decreased by 25% for now given patient's change in mental status. (5) CYRIL (obstructive sleep apnea): (6) H/O: CVA (cerebrovascular accident): (7) Pulmonary embolism: -Heparin gtt (which is now on hold until CT head can be obtained to rule out bleed). (8) Ambulatory dysfunction: (9) History of lumbosacral spine surgery: History of Present Illness Attending Physician: Thee Vazquez MD History of Present Illness 82 year old male with PMH moderate vascular dementia, CVA, subdural hematoma, hearing impairment, spinal surgery, chronic pain with intrathecal pain pump, CYRIL noncompliant with CPAP, CO2 retention and others presented from [facility] for confusion, s/p fall with left trochanter fracture, and evaluation of his pain pump. Patient also has PE for which he is on IV heparin gtt. Per patient's daughter, he lives in an apartment with waiver service caregivers 12 hours per day. He is alone the other 12 hours. He is still able to dress and bathe himself, able to ambulate. Has been declining recently, however. He has frequent bouts of anger and agitation even at home. FAST score 5 at baseline, indicating moderate dementia. This was discussed with his daughter. Sonia is aware that patient is not currently able to make his own decisions. We discussed patient's wishes. She states that patient never wanted to live in a debilitated state and would not want aggressive or invasive measures such as CPR , intubation, surgeries, etc. She is aware of the fracture and that there is no plan for surgery. Discussed CODE STATUS. Sonia would like her father to be DNR. Should patient decline, no escalation in care. For now, continue with current treatment. See A&P for further details. Thank you kindly for this consult. I will follow as needed. Allergies Allergy/AdvReac Type Severity Reaction Status Date / Time Cephalosporins Allergy Unknown UNKNOWN Verified 03/01/18 01:58 Sulfa (Sulfonamide Allergy Unknown ? Verified 03/01/18 01:58 Antibiotics) sulfamethoxazole Allergy Unknown Rash Verified 03/01/18 02:13 [From Bactrim] trimethoprim [From Bactrim] Allergy Unknown Rash Verified 03/01/18 02:13 Home Medications Home Medications Medication Instructions Recorded Confirmed Type albuterol sulfate 2.5 mg/3 mL 2.5 mg INH Q4H PRN 12/05/17 03/01/18 History (0.083 %) solution for nebulization albuterol sulfate 90 mcg/actuation 2 puffs INH Q4H PRN 12/05/17 03/01/18 History breath activated powder inhaler aspirin 81 mg tablet,delayed 81 mg PO DAILY 12/05/17 03/01/18 History release finasteride 5 mg tablet 5 mg PO DAILY 12/05/17 03/01/18 History fluticasone 250 mcg-salmeterol 50 1 inha INH BID 12/05/17 03/01/18 History mcg/dose blistr powdr for inhalation furosemide 20 mg tablet 20 mg PO DAILY 12/05/17 03/01/18 History hydrochlorothiazide 12.5 mg tablet 12.5 mg PO DAILY 12/05/17 03/01/18 History insulin detemir (U-100) 100 24 units SQ QPM ml 12/05/17 03/01/18 History unit/mL subcutaneous solution levetiracetam 500 mg tablet 500 mg PO BID 12/05/17 03/01/18 History magnesium oxide 400 mg capsule 400 mg PO DAILY cap 12/05/17 03/01/18 History polyethylene glycol 3350 17 gram 17 gm PO DAILY 12/05/17 03/01/18 History oral powder packet pravastatin 40 mg tablet 40 mg PO DAILY 12/05/17 03/01/18 History sennosides 8.6 mg-docusate sodium 2 tab PO HS PRN tab 12/05/17 03/01/18 History 50 mg tablet thiamine HCl (vitamin B1) 500 mg 500 mg PO DAILY 12/05/17 03/01/18 History tablet tiotropium bromide 18 mcg capsule 1 cap INH DAILY 12/05/17 03/01/18 History with inhalation device triamcinolone acetonide 0.1 % 1 appln TOP BID MDD do not use 12/05/17 03/01/18 History topical ointment longer than 14 days acetaminophen 650 mg PO Q4 PRN 03/01/18 03/01/18 History ketoconazole 1 applic TOPICAL BID 03/01/18 03/01/18 History metformin 1,000 mg PO BIDM 03/01/18 03/01/18 History vit C,S-Yb-dsjee-lutein-zeaxan 1 tab PO DAILY 03/01/18 03/01/18 History [PreserVision AREDS-2] Patient History Medical History Pulmonary embolism Ambulatory dysfunction Fracture of greater trochanter of left femur Presence of intrathecal pump (Chronic) Diabetes (Chronic) CYRIL (obstructive sleep apnea) (Chronic) PVD (peripheral vascular disease) (Chronic) HTN (hypertension) (Chronic) H/O: CVA (cerebrovascular accident) (Chronic) Epilepsy (Chronic) Vascular dementia (Chronic) S/P ORIF (open reduction internal fixation) fracture (Chronic) "Trochanteric Fx " CO2 retention (Chronic) Surgical History History of lumbosacral spine surgery (Chronic) History of open reduction and internal fixation (ORIF) procedure (Chronic) S/P femoral-popliteal bypass surgery (Chronic) Previous back surgery (Chronic) Status post hip replacement (Chronic) "Right" H/O esophagogastroduodenoscopy (Chronic) Social History Current Living Situation: Alone Current Living Situation Comment: [facility] Other Information That Helps Us Care for You: No Feels Safe at Home: Yes Smoking Status: Former smoker Hx Alcohol Use: No Hx Substance Use: No Beliefs That Will Affect Care: None Preferred Language: Danish Communication Ability: Impaired Cap Inspector Required: No Review of Systems limited ROS due to confusion, garbled speech, and extreme hearing impairment Respiratory: no cough and no dyspnea on exertion Cardiovascular: no chest pain and no edema Gastrointestinal: no abdominal pain, no nausea and no vomiting Physical Exam 2 Vital Signs (Past 24 Hours): Last Vital Signs Temp 36.4 C L 03/01/18 11:35 Pulse 89 03/01/18 11:35 Resp 20 03/01/18 11:35 BP 157/72 H 03/01/18 11:35 Pulse Ox 100 03/01/18 11:35 Constitutional: + altered mental status and + frail appearing; no acute distress Eyes: reactive pupils and + dilated pupils (4-5mm) ENMT: Ears: + hearing impairment Neck: normal visual inspection and trachea midline Respiratory: + uses accessory muscles; no respiratory distress Auscultation : + diminished lung sounds Cardiovascular: Rate/Rhythm: regular rate and regular rhythm Heart Sounds: + murmur Vessels: normal peripheral pulses; no JVD Extremities: no edema Gastrointestinal (Abdomen): Inspection/Auscultation: normal bowel sounds; abdomen not distended Percussion/Palpation: abdomen soft; abdomen nontender Skin: dark skin discoloration of bilateral lower legs. Neurologic: moves all extremities, awake and + confused Speech / Cognition : + abnormal speech (garbled (baseline)) Psychiatric: Orientation: alert, oriented to person and oriented to place Affect: + irritable affect and + angry affect Time Spent Midlevel 80 minutes with >50% of time spent at bedside with patient and primary RN as well as on phone with patient's daughter discussing condition and GOC.
--- NOTE | 2018-03-01 14:17 | Hospitalist Progress Note ---
Date of Service March 01, 2018 Assessment & Plan (1) Encephalopathy: Likely metabolic encephalopathy in setting of baseline dementia Multi factorial:hypercapnia; narcosis, H/O dementia H/O CVA in the past as per POA Rule out intracranial bleed given anticoagulation from recent confinement at [facility] for recent pulmonary embolism CT head pending Acute PE Past hx DVT as per records Recent confinement at [facility] ER for left hip fracture not requiring operative intervention. Not a candidate for halfway anticoagulation given H/O multiple falls leading to fractures, H/O subdural hematoma--Daughter (POA is agreeable with management) --Check venous doppler --CTA from [facility]--Many artifacts May need repeat CTA --Continue oxygen support --No aggresive measures/surgeries per POA/Palliative Care --Plan to start on short term anticoagulation if CT head is negative Fracture of greater trochanter of left femur: 2/2 fall as per POA Evaluated by (Orthopedics) at [facility]--Recommended conservative management POA is aware Pain control Acute on chronic Hypercapnic/Hypoxic respiratory failure On 2 liters of oxygen chronically Multifactorial: COPD, CYRIL, PE Non complaint with CPAP as pe records Continue oxygen support, Duonebs BiPAP/CPAP PRN Appreciate Pulmnology Input H/O multiple falls/Fractures Ambulatory dysfunction Recent fall leading to left hip fracture PT/PT Fall precautions May need placement 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 DVT Px: Plan to anticoagulate once CT head done Code Status: DNI/DNR Appreciate palliative care help Disposition: To be determined sales representative facility services consulted Family Contact: Patient's POA, Ms. Scott Suman: contact number [phone] Subjective Patient is seen and examined at bedside History is unreliable given extremity hard of hearing and baseline dementia Discussed with Patient's daughter, Pulmnology and palliative care today No aggressive measures as per POA/Palliative care Patient denies any pain of left femur fracture site CT head is pending No plan for halfway anticoagulation Check venous dopplers Physical Exam 2 Vital Signs (Past 24 Hours): Last Vital Signs Temp 36.4 C L 03/01/18 11:35 Pulse 89 03/01/18 11:35 Resp 20 03/01/18 11:35 BP 157/72 H 03/01/18 11:35 Pulse Ox 100 03/01/18 11:35 Physical Exam: Physical Exam: Vitals signs as noted above General Appearance:No apparent distress Head: normocephalic, Atraumatic, +hearing loss Eyes: normal inspection, EOMI Neck: supple, Trachea midline Respiratory/Chest: Decreased breath sounds, CTA Cardiovascular: S1, S2, + systolic murmur Abdomen/GI:Soft, Non tender, Bowel sounds present Extremities/Musculoskelatal:normal inspection, Chronic LE venous stasis changes , decreased ROM of L LE Neurologic/Psych:alert, awake, complete neuro exam could not be performed Results & Data Laboratory Results Short CBC 03/01/18 Range/Units 01:53 WBC 4.78 L (4.8-10.8) K/uL Hgb 12.5 L (14.0-18.0) g/dL Hct 40.1 L (42-52) % Plt Count 103 L (130-400) K/uL BMP 03/01/18 01:53 Sodium 139 Potassium 4.4 Chloride 97 L Carbon Dioxide 39 H BUN 19 H Creatinine 0.68 Glucose 78 Calcium 8.4 L Cardiac Enzymes 03/01/18 Range/Units 01:53 Troponin I < 0.015 (0-0.045) ng/ml Diagnostic Findings CT head, Venous doppler: pending
--- NOTE | 2018-03-01 14:44 | CT Scan Report ---
CT SCAN OF THE BRAIN WITHOUT IV CONTRAST CLINICAL HISTORY: Change in mental status. COMPARISON STUDY: CT of the brain dated 07/25/2017. TECHNIQUE: Unenhanced axial CT scan of the brain is performed from the vertex to the skull base. A do se lowering technique was utilized adhering to the principles of ALARA. The skull base was scanned tw ice due to motion artifact. CT DOSE: 1148.68 mGy.cm FINDINGS: Brain parenchyma: There are age-related involutional changes noting moderate subcortical and periven tricular microangiopathic change. Right parietal encephalomalacia is unchanged and consistent with a remote infarct. Chronic lacunar infarcts identified in the right cerebellar hemisphere and both thala mi. There is no hemorrhage, mass effect, or evidence of acute territorial ischemia by CT criteria. Gr ay-white matter differentiation is preserved. No extra-axial fluid collection is seen. Ventricles, sulci, cisterns: Prominent secondary to involutional change. Intracranial vasculature: There is atherosclerotic calcification of the cavernous carotid and vertebr al arteries. Calvarium: Unremarkable. Sinuses and mastoids: Trace mucosal thickening is seen in the maxillary antra. The remaining visualiz ed paranasal sinuses are clear. There are bilateral mastoid effusions. Orbits: The bony orbits are grossly intact. There are bilateral ocular lens implants. IMPRESSION: Senescent changes as above with no hemorrhage, mass effect, or evidence of acute territor ial ischemia by CT criteria. Electronically signed by: Jorge Mcnamara M.D. 03/01/2018 2:42 PM
[2018-03-01] MEDS: levETIRAcetam 500 MG TAB PO SCH ×2 (14:54→20:37)
[2018-03-01] MEDS: ASPIRIN 81 MG ECTAB PO SCH (14:54)
[2018-03-01] MEDS: FLUTICASONE/SALMETEROL 250/50 (ADVAIR) 14 PUFF/1 INHALER INH SCH ×2 (14:54→20:35)
[2018-03-01] MEDS: FUROSEMIDE 20 MG TAB PO SCH (14:54)
[2018-03-01] MEDS: DOCUSATE SODIUM/SENNA 50/8.6MG TAB PO SCH (14:54)
[2018-03-01] MEDS: PRAVASTATIN SOD 40 MG TAB PO SCH (14:54)
[2018-03-01] MEDS: FINASTERIDE 5 MG TAB PO SCH (14:54)
[2018-03-01] MEDS: TIOTROPIUM BROMIDE 5 PUFF/90 MCG INH INH SCH (14:55)
[2018-03-01] MEDS: THIAMINE HCL 100 MG TAB PO SCH (14:55)
--- NOTE | 2018-03-01 15:24 | Ultrasound Report ---
ULTRASOUND BILATERAL LOWER EXTREMITY VENOUS CLINICAL HISTORY: Change in mental status. Clinical concern for deep venous thrombosis. COMPARISON STUDY: Bilateral lower extremity venous ultrasound dated 09/01/2014. TECHNIQUE: Real-time, grayscale, and color Doppler sonography of the deep veins of the right and left lower extremity was performed from the inguinal crease to the calf. Compression and augmentation wer e utilized. FINDINGS: There is no sonographic evidence of deep venous thrombosis identified in the right or left lower extremity. The common femoral, superficial femoral, and popliteal veins are patent and normally compressible bilaterally. The greater saphenous vein and the profunda femoris vein at the junction w ith the common femoral vein are clear in both legs. The visualized calf veins are patent bilaterally. IMPRESSION: There is no sonographic evidence of deep venous thrombosis identified in the right or lef t lower extremity. Electronically signed by: Jorge Mcnamara M.D. 03/01/2018 3:22 PM
[2018-03-01] MEDS: ALBUT/IPRATROP 3MG/0.5MG NEB 3 ML VIAL NEB SCH ×2 (15:36→18:52)
--- NOTE | 2018-03-01 16:17 | Consultation Report ---
DATE OF CONSULTATION: 03/01/2018 PULMONARY CONSULTATION TIME: 1:10 p.m. REPORT OF CONSULTATION: The patient is seen in room 212. He is an 82-year-old male who is extremely hard of hearing. His history is that he recently had a fall. He was at [facility] for evaluation. He reportedly had a left hip fracture that did not require operative intervention. He was quite lethargic. Review of records shows that he had a blood gas done there on 02/27/2018 on 6 L oxygen showing a pH of 7.35 with a pCO2 of 74 and a pO2 of 61. The patient also had a CT angio of the chest while there. This reported a small pulmonary embolism in the right lower lobe. I do not know the results of venous Dopplers that supposedly were pending in [place] and it is unclear if they were actually done. The patient is a very poor historian. He was transferred to [facility] because he has a pain pump for chronic pain and it is typically managed through our pain physicians here. The patient carries a history of COPD and he is on chronic oxygen therapy. The patient tells me that he quit smoking about 17 years ago and he had smoked about 2 packs per day. If this is accurate, I would assume that he smoked for 45 years or more which would translate into 90 pack years. It is difficult to tell what info the patient tells me that is reliable. 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 The patient reportedly lives alone, but has caregivers. There is as noted a history of recurring falls. PAST SURGICAL HISTORY: 1. Hernia repair. 2. Fem-pop bypass. 3. Mastoid surgery. 4. Spine surgery. 5. Total hip replacement. 6. Pain pump insertion. PAST MEDICAL HISTORY: 1. DVT. 2. Coronary artery disease. 3. Peripheral vascular disease. 4. CVA. 5. COPD. 6. Sleep apnea. 7. Diabetes. 8. Hypertension. 9. Subdural hematoma. 10. Seizure disorder. 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 12. Ambulatory dysfunction. 13. Anemia. 14. Thrombocytopenia. 15. BPH. 16. Severe hearing loss. FAMILY HISTORY: Reportedly positive for heart disease, but would be overall relatively noncontributory considering the patient's age. ALLERGIES: LISTED ALLERGIES TO CEPHALOSPORINS AND SULFA. MEDICATIONS: 1. Insulin. 2. Finasteride. 3. Advair 250/50, one puff b.i.d. 4. Furosemide 20 mg daily. 5. Pravachol 40 mg daily. 6. Thiamine. 7. Tiotropium 1 puff daily. 8. Aspirin 81 mg daily. 9. Keppra 500 mg b.i.d. 10. Hydrocodone 5/325 p.r.n. 11. Naloxone p.r.n. 12. Zyprexa p.r.n. REVIEW OF SYSTEMS: Very difficult to obtain as the patient is extremely hard of hearing and not totally oriented. PHYSICAL EXAMINATION: GENERAL: The patient is an 82-year-old male who was quite lethargic. His speech was garbled, though it got a little bit better as we chatted. He thought he was in [place]. He did tell me he is 83 years old, although he is actually 82. HEENT: The patient's pupils are reactive. He has an oxygen mask in place. Mouth exam showed dentures on top and an absence of teeth in the bottom. NECK: No lymph nodes were palpable. VITAL SIGNS: The cardiac rate is 89 per minute, is regular. Blood pressure 157/72. Temperature is 36.4. He has had no fevers since admission. SPINE: There is a dorsal kyphosis. RESPIRATORY: The breath sounds are severely diminished bilaterally. The respiratory rate is 20. Oxygen saturation is 100% on 6 liter OxyMask. Reportedly, earlier today when the patient was on room air for a short time, his saturations were 41%. There is prolongation to the expiratory phase of respiration. ABDOMEN: Soft. Bowel sounds were present. There was no tenderness to palpation. EXTREMITIES: Shows significant skin discoloration of the lower extremities with a purplish brown discoloration. He did have peripheral pulses. No edema was noted. IMAGING: CAT scan of the chest done 02/27/2018 at [place] showed calcified hilar lymph nodes as well as superior and inferior carinal lymph nodes. There were chronic fibrotic changes at the left base. There was a small right effusion. Patchy chronic atelectasis or infiltrate was observed at the right base. There are mild chronic pleural calcifications. There is report in the distal right lower lobe pulmonary artery segment a suggestion of small peripheral emboli. This reflected a change compared with the CT angio done 04/18/2017. I did review this CAT scan with Dr. Morfin of our radiology department. He indicated that there was a lot of motion artifact. It would be quite difficult to be 100% certain of the pulmonary emboli. His suggestion if feasible was to repeat the CT angio of the chest. LABORATORY DATA: White count is 4.78. Hemoglobin 12.5. Platelets are 103,000. Electrolytes show sodium 139, potassium 4.4, chloride 97, bicarbonate 39. BUN was 19 with a creatinine of 0.68. Troponin was negative. ProBNP done 02/25/2018 at [place] showed a level of 961. Upper limit of normal is 450. IMPRESSION: 1. Respiratory failure -- acute on chronic with hypoxia and hypercarbia. 2. Possible pulmonary embolism -- small. 3. Chronic obstructive pulmonary disease exacerbation. 4. Atelectasis both bases. 5. Small right pleural effusion. COMMENTS AND RECOMMENDATIONS: It is my understanding that the anticoagulation currently is being held. There are concerns about whether the patient would have any cerebral bleeding and a CAT scan of the brain has been pending. He has been refusing that study. There are also issues about the recurring falls the patient has had. He also has thrombocytopenia. Thus, his risk for bleeding from falls has been much higher than normal. Ideally as per our radiology department, a repeat CT angio of the chest would be appropriate. The patient does have acceptable renal function. The issue would be if he would cooperate or not. I did speak to the patient and tried to encourage him to get this study done so we could be more certain about whether he needs treatment or not. I believe it would be reasonable to do the venous Dopplers since I do not know that we have a definite answer on the Doppler results. If the Dopplers were positive, one would need to assess whether a filter would be appropriate if indeed we were unable to anticoagulate him because of the risk of bleeding. The patient's oxygen saturation should be maintained between 88% and 92% because of his severe hypercarbia. I am doubtful he will wear a BiPAP, but I believe we should try in light of his poor blood gases and his history of sleep apnea. I will order low pressures such as IPAP 10 EPAP 5. With the patient's chronic lung disease, I believe he should have neb treatments regularly not just p.r.n. Would give the DuoNebs q.i.d. I would discontinue the tiotropium. He has prostate disease. The tiotropium may make it difficult for him to urinate. Even if he has a catheter in, it would be better to have the tiotropium off with the hopes of getting a catheter out. Thank you very much for asking me to assist in his care.
[2018-03-01] MEDS: ENOXAPARIN 80 MG/0.8 ML SYR SQ SCH (19:20)
[2018-03-01 20:40] LABS: Appearance Urine Clear (Clear); Bacteria Urine Automated 1+ (Negative); Bilirubin Urine Negative (Negative); Color Urine Dark Yellow; Glucose Urine UA Negative (Negative); Ketones Urine 2+ (Negative); Leukocyte Esterase Urine Trace (Negative); Nitrite Urine Negative (Negative); Protein Urine Trace (Negative); Specific Gravity Urine 1.021 (1.000-1.030); Urobilinogen Urine Negative (Negative)
[2018-03-02] MEDS: ENOXAPARIN 80 MG/0.8 ML SYR SQ SCH ×2 (06:12→18:50)
[2018-03-02] MEDS: ALBUT/IPRATROP 3MG/0.5MG NEB 3 ML VIAL NEB SCH ×4 (06:59→19:21)
[2018-03-02 07:27] LABS: Basophils # (auto) 0.01 K/uL (0-0.2); Basophils % (auto) 0.3 %; Eosinophils # (auto) 0.09 K/uL (0-0.5); Eosinophils % (auto) 2.4 %; Hematocrit (blood only) 42.3 % (42-52); Hemoglobin 13.1 g/dL (14.0-18.0); Lymphocytes # (auto) 0.86 K/uL (1.2-3.4); Lymphocytes % (auto) 22.8 %; Mean Corpuscular Volume 91.4 fL (80-100); Mean Platelet Volume 10.8 fL (7.4-10.4); Monocytes % (auto) 10.6 %; Neutrophils # (auto) 2.42 K/uL (1.4-6.5); Neutrophils % (auto) 63.9 %; Platelet Count 133 K/uL (130-400); RDW Coefficient of Variation 14.2 % (11.5-14.5); RDW Standard Deviation 47.9 fL (36.4-46.3); Red Blood Count 4.63 M/uL (4.7-6.1); White Blood Count 3.78 K/uL (4.8-10.8)
[2018-03-02 07:36] LABS: Partial Thromboplastin Ratio 1.3; Partial Thromboplastin Time 33.3 Seconds (21.0-31.0)
[2018-03-02 07:49] LABS: BUN Creatinine Ratio 31.1 (10-20); Calcium 8.4 mg/dl (8.5-10.1); Creatinine Clr Calc Pharmacy 64.9 ml/min; Est GFR (African American) 94.1; Est GFR (Non-African American) 81.2; Magnesium 1.9 mg/dl (1.8-2.4); Potassium 4.5 mmol/L (3.5-5.1)
[2018-03-02] MEDS ORDERED: SODIUM CHLORIDE 0.9% 1000ML 1,000 ML IV ONE (08:00)
--- NOTE | 2018-03-02 08:18 | Pain Management Progress Note ---
Date of Service March 02, 2018 Assessment & Plan (1) Fracture of greater trochanter of left femur: (2) History of lumbosacral spine surgery: (3) Presence of intrathecal pump: (4) CYRIL (obstructive sleep apnea): (5) H/O: CVA (cerebrovascular accident): (6) Vascular dementia: (7) Pulmonary embolism: (8) Ambulatory dysfunction: 1. There were no further adjustments made to his current intrathecal hydromorphone dose. The pump printout is present in the patient's chart for details. 2. The patient will follow through with x-rays of the thoracic and lumbar spine to evaluate his intrathecal catheter to rule out fracture 3. Will follow-up with patient pending x-ray results. Subjective Mr. 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 The patient's intrathecal dose of hydromorphone has been stable for greater than 5 years, but due to concern over his cognitive status and respiratory status his intrathecal hydromorphone dose was decreased by 25% yesterday. His current intrathecal hydromorphone dose is 0.6 mg/day. The patient is reporting no significant pain complaints on today's visit. He is describing some discomfort in the gastrocnemius regions bilaterally but only described as a muscular soreness. He did undergo venous Doppler scan yesterday which was negative for DVT. He has minimal left-sided hip soreness. He has no complaints of axial low back pain. X-ray of his catheter was requested yesterday but has not been completed at the time of this dictation. Patient has no further constitutional complaints at this time. Plan of care discussed with Dr. Sahra Crespo. Pain Assessment Pain Assessment [facility] Combined Pain Scale: 2-Minimal - Able to engage in pleasures of life with some interference Pain scale - at its best (0-10): 0 Pain scale - at its worst (0-10): 2 Physical Exam 2 Vital Signs (Past 24 Hours): Last Vital Signs Temp 37.1 C 03/02/18 04:02 Pulse 74 03/02/18 07:00 Resp 18 03/02/18 07:00 BP 141/73 H 03/02/18 04:02 Pulse Ox 94 03/02/18 07:00 Physical Exam: General: Patient was sleeping upon entering the room. He had BiPAP in place. He was aroused. BiPAP was removed. The patient was able to communicate. He is extremely hard of hearing. He was not oriented to time but wants to person and place. Left hip: Minimally tender to palpation. Abdomen: Pump present in the right lower quadrant without evidence of edema, erythema or skin breakdown. Pump is nontender to palpation. Lower extremities: Patient is tender to palpation over the gastrocnemius region bilaterally. There is no appreciable edema, erythema or warmth. Dorsalis pedis and posterior tibial pulses were 1+ and equal bilaterally.
--- NOTE | 2018-03-02 08:56 | XRay Report ---
XR lumbar spine min 4V routine CLINICAL HISTORY: Intrathecal catheter COMPARISON STUDY: 11/29/2010 FINDINGS: There are multilevel degenerative changes present. The bones are osteopenic. There is a sev ere T12 compression fracture, slightly progressive when compared the prior study. Also evident are pr ogressive superior endplate L1, L2, and L3 deformities. An intrathecal catheter is visualized which e nters the spinal canal at the L4-5 level. The tip extends cephalad to the superior T10 level. No cath eter fractures are visualized. IMPRESSION: 1. An intrathecal catheter is visualized. The tip extends cephalad to the T10 level 2. Multilevel degenerative change. 3. Multiple vertebral body compression deformities. Electronically signed by: Edgardo Nina M.D. 03/02/2018 8:55 AM
--- NOTE | 2018-03-02 09:21 | XRay Report ---
THORACIC SPINE 2 VIEWS CLINICAL HISTORY: Intrathecal catheter. FINDINGS: AP and lateral views of the thoracic spine are correlated with thoracic spinal CT dated 06/28. The skeletal structures are osteopenic. Again seen are moderate to severe compression deformi ties of T9 and T12. Mild compression deformities are also noted in the upper thoracic region. Alignme nt is preserved. Intrathecal catheter is in place. The catheter terminates at the T9-T10 disc space. The catheter is intact as imaged in the thoracic region. Mild multilevel degenerative disc space narr owing is noted. Small anterior osteophytes are seen throughout. The transverse processes and pedicles are grossly intact as seen on the frontal view. The thoracic aorta and mitral annulus are densely ca lcified. IMPRESSION: 1. The visualized portions of the intrathecal catheter appear intact. The tip of the catheter termina alfonzo at the T9-T10 disc space. 2. Chronic thoracic compression deformities are similar to previous. Dictated: 03/02/2018 8:59 AM Transcribed: 03/02/2018 9:21 AM Jennifer [id number] Electronically signed by: Jorge Mcnamara M.D. 03/02/2018 9:23 AM
[2018-03-02] MEDS: PRAVASTATIN SOD 40 MG TAB PO SCH (09:36)
[2018-03-02] MEDS: DOCUSATE SODIUM/SENNA 50/8.6MG TAB PO SCH (09:36)
[2018-03-02] MEDS: FINASTERIDE 5 MG TAB PO SCH (09:36)
[2018-03-02] MEDS: ASPIRIN 81 MG ECTAB PO SCH (09:37)
[2018-03-02] MEDS: THIAMINE HCL 100 MG TAB PO SCH (09:37)
[2018-03-02] MEDS: FLUTICASONE/SALMETEROL 250/50 (ADVAIR) 14 PUFF/1 INHALER INH SCH ×2 (09:37→20:01)
[2018-03-02] MEDS: FUROSEMIDE 20 MG TAB PO SCH (09:37)
[2018-03-02] MEDS: levETIRAcetam 500 MG TAB PO SCH ×2 (09:38→20:02)
[2018-03-02] MEDS: TIOTROPIUM BROMIDE 5 PUFF/90 MCG INH INH SCH (09:38)
[2018-03-02] MEDS: INSULIN ASPART 100 UNITS/ML 3 ML PEN SC SCH ×4 (09:40→20:02)
[2018-03-02] MEDS ORDERED: COUGH DROP (SUGAR FREE) LOZ 24 LOZ/1 BOX BUCCAL ONE (11:49)
--- NOTE | 2018-03-02 13:18 | XRay Report ---
XR hip LT 2-3V w pelvis CLINICAL HISTORY: 82 years-old Male presenting with Left Hip Fx. TECHNIQUE: Single frontal view of the pelvis and frontal and frog-leg lateral views of the left hip w ere obtained. COMPARISON: 01/31/2015. FINDINGS: Redemonstration of bilateral total hip arthroplasty. Numerous cerclage wire fixation as well as plate and screw fixation along the proximal right femoral metaphysis. Alignment of the prostheses is mass effect unchanged from prior. Bony pelvis intact allowing for suspected osteopenia. Atherosclerosis. Mildly displaced fracture of the posterior, lateral and superior intertrochanteric region of the left femur consistent with the greater trochanter. The fracture fragment is displaced 5 mm proximally. Th is is only apparent on frog-leg lateral view. IMPRESSION: Mildly displaced fracture of the greater trochanter of the left femur, consistent with a periprosthet ic fracture. Electronically signed by: Kody Meraz M.D. 03/02/2018 1:17 PM
--- NOTE | 2018-03-02 16:51 | Hospitalist Progress Note ---
Date of Service March 02, 2018 Assessment & Plan (1) Encephalopathy: Likely metabolic encephalopathy in setting of baseline dementia, UTI Multi factorial:hypercapnia; narcosis, H/O dementia H/O CVA in the past as per POA Rule out intracranial bleed given anticoagulation from recent confinement at [place] for recent pulmonary embolism CT head:Senescent changes as above with no hemorrhage, mass effect, or evidence of acute territorial ischemia by CT criteria. UTI: Urine culture: gram negative bacilli Started on Aztreonam Possible small Acute PE Past hx DVT as per records Recent confinement at [place] [facility] for left hip fracture not requiring operative intervention. Not a candidate for scrap crusher anticoagulation given H/O multiple falls leading to fractures, H/O subdural hematoma--Daughter (POA is agreeable with management) venous doppler: no DVT --CTA from [facility]--Many artifacts May need repeat CTA --Continue oxygen support --No aggresive measures/surgeries per POA/Palliative Care --Plan to start on short term anticoagulation if CT head is negative --Appreciate Pulmnology Input --Continue Lovenox for now Fracture of greater trochanter of left femur: 2/2 fall as per POA Multiple Compression deformities of Thoracic and lumbar Vertebrae Evaluated by (Orthopedics) at [facility]--Recommended conservative management POA is aware Pain control Orthopedics consulted for Input Acute on chronic Hypercapnic/Hypoxic respiratory failure On 2 liters of oxygen chronically Multifactorial: COPD, CYRIL, PE Non complaint with CPAP as pe records Continue oxygen support, Duonebs BiPAP/CPAP PRN Appreciate Pulmnology Input H/O multiple falls/Fractures Ambulatory dysfunction Recent fall leading to left hip fracture PT/PT Fall precautions May need placement 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 DVT Px: On Lovenox Code Status: DNI/DNR Appreciate palliative care help Disposition: To be determined environmental services project manager consulted Family Contact: Patient's POA, Ms. Sonia Graciaeal: contact number [phone] Subjective Patient is seen and examined at bedside History is unreliable given extremity hard of hearing and baseline dementia Discussed with patient's daughter today Urine culture growing eric negative bacilli Pain is controlled Seemed to be sleeping most of the day No aggressive measures as per POA/Palliative care CT head showed no acute changes, Venous doppler negative for DVT No plan for scrap crusher anticoagulation Physical Exam 2 Vital Signs (Past 24 Hours): Last Vital Signs Temp 36.7 C 03/02/18 16:17 Pulse 84 03/02/18 16:17 Resp 20 03/02/18 16:17 BP 130/58 L 03/02/18 16:17 Pulse Ox 91 03/02/18 16:17 Physical Exam: Physical Exam: Vitals signs as noted above General Appearance:No apparent distress Head: normocephalic, Atraumatic, +hearing loss Eyes: normal inspection, EOMI Neck: supple, Trachea midline Respiratory/Chest: Decreased breath sounds, CTA Cardiovascular: S1, S2, + systolic murmur Abdomen/GI:Soft, Non tender, Bowel sounds present Extremities/Musculoskelatal:normal inspection, Chronic LE venous stasis changes , decreased ROM of L LE Neurologic/Psych:alert, awake, complete neuro exam could not be performed Results & Data Laboratory Results Short CBC 03/02/18 Range/Units 06:55 WBC 3.78 L (4.8-10.8) K/uL Hgb 13.1 L (14.0-18.0) g/dL Hct 42.3 (42-52) % Plt Count 133 (130-400) K/uL BMP 03/02/18 06:55 Sodium 139 Potassium 4.5 Chloride 98 Carbon Dioxide 36 H BUN 26 H Creatinine 0.82 Glucose 87 Calcium 8.4 L Urine 03/01/18 Range/Units 20:20 Urine Color Dark Yellow Urine Appearance Clear (Clear) Urine pH 5.0 (4.5-7.5) Ur Specific Kempner 1.021 (1.000-1.030) Urine Protein Trace H (Negative) Urine Glucose (UA) Negative (Negative)
[2018-03-02] MEDS: AZTREONAM 500 MG in DEXTROSE 5% 100 ML IV SCH (18:51)
--- NOTE | 2018-03-02 19:18 | Progress Note ---
DATE: 03/02/2018 SUBJECTIVE: The patient is much more talkative. He is definitely much more alert. He is not complaining of shortness of breath. Nursing states he has had no problems. The patient was alert enough to talk about going to [facility]. OBJECTIVE: GENERAL: The patient appeared comfortable. Temperature is 36.7. There has been no significant fevers in the past 24 hours with the highest being 37.2. HEART: Heart rate was 84 per minute. VITAL SIGNS: Blood pressure 130/58. Respiratory rate is 20. LUNGS: The breath sounds are diffusely diminished. No wheezes were heard. Oxygen saturation on 5 L OxyMask is 91%. EXTREMITIES: Unchanged from prior with significant skin color changes peripherally and no edema. LABORATORY DATA: White blood cell count today is 3.78, hemoglobin 13.1, platelets 133,000. Electrolytes show sodium 139, potassium 4.5, chloride 98, bicarbonate 36. BUN is 26 with a creatinine of 0.82. Venous Doppler done yesterday showed no evidence of DVT in the lower extremities. Urine culture is reporting gram negative bacilli. Sensitivities are to follow. IMPRESSION: 1. Respiratory failure -- [id number] with hypoxia and hypercarbia. 2. Pulmonary embolism. 3. Chronic obstructive pulmonary disease with exacerbation. 4. Atelectasis both lung bases. 5. Right pleural effusion. 6. Urinary tract infection. COMMENTS AND RECOMMENDATIONS: The patient yesterday was started on Lovenox. He is getting this full strength q. 12 hours. Yesterday, I discussed with Dr. Vazquez the possibility of a repeat CT angio of the chest. I am not certain if he spoke to family about the possibility of long-term anticoagulation or not. His notes implied no long-term anticoagulation. If indeed that is the case, we would have no trouble simply stopping the anticoagulation. However, I do not know if he will be totally immobilized or not. If indeed he would not be able to bear weight for a significant period of time, then anticoagulation could be considered at least for as long as he was nonambulatory. We will discuss the case with him.
--- NOTE | 2018-03-03 01:24 | Consultation Report ---
DATE OF CONSULTATION: 03/02/2018 This is an 82-year-old male who was involved in a fall. He has multiple medical problems. He is currently on hospice care. The patient sustained a nondisplaced fracture of the tip of the greater trochanter. Even if the patient was a surgical candidate, there is no real treatment except for comfort for this injury. Allow mobilization in and out of bed as tolerated. May weightbear as tolerated and transferring. Thank you kindly for this consult.
[2018-03-03] MEDS: AZTREONAM 500 MG in DEXTROSE 5% 100 ML IV SCH ×3 (02:01→18:42)
[2018-03-03] MEDS: ENOXAPARIN 80 MG/0.8 ML SYR SQ SCH ×2 (05:44→18:42)
[2018-03-03 06:29] LABS: Hematocrit (blood only) 42.3 % (42-52); Hemoglobin 13.3 g/dL (14.0-18.0); Mean Corpuscular Hgb Conc 31.4 g/dL (32-36); Mean Corpuscular Volume 90.2 fL (80-100); Mean Platelet Volume 9.9 fL (7.4-10.4); Platelet Count 123 K/uL (130-400); RDW Coefficient of Variation 14.2 % (11.5-14.5); RDW Standard Deviation 46.7 fL (36.4-46.3); Red Blood Count 4.69 M/uL (4.7-6.1); White Blood Count 6.12 K/uL (4.8-10.8)
[2018-03-03 06:44] LABS: Partial Thromboplastin Ratio 1.3; Partial Thromboplastin Time 34.5 Seconds (21.0-31.0)
[2018-03-03 07:03] LABS: BUN Creatinine Ratio 31.7 (10-20); Calcium 8.5 mg/dl (8.5-10.1); Creatinine Clr Calc Pharmacy 66.5 ml/min; Est GFR (African American) 95.1; Potassium 4.3 mmol/L (3.5-5.1)
[2018-03-03] MEDS: ALBUT/IPRATROP 3MG/0.5MG NEB 3 ML VIAL NEB SCH ×4 (07:05→19:18)
[2018-03-03] MEDS: INSULIN ASPART 100 UNITS/ML 3 ML PEN SC SCH ×4 (07:46→20:56)
[2018-03-03] MEDS: levETIRAcetam 500 MG TAB PO SCH ×2 (07:47→20:55)
[2018-03-03] MEDS: ASPIRIN 81 MG ECTAB PO SCH (07:47)
[2018-03-03] MEDS: FLUTICASONE/SALMETEROL 250/50 (ADVAIR) 14 PUFF/1 INHALER INH SCH ×2 (07:47→20:55)
[2018-03-03] MEDS: FINASTERIDE 5 MG TAB PO SCH (07:47)
[2018-03-03] MEDS: THIAMINE HCL 100 MG TAB PO SCH (07:47)
[2018-03-03] MEDS: FUROSEMIDE 20 MG TAB PO SCH (07:48)
[2018-03-03] MEDS: PRAVASTATIN SOD 40 MG TAB PO SCH (07:48)
[2018-03-03] MEDS: DOCUSATE SODIUM/SENNA 50/8.6MG TAB PO SCH (07:48)
--- NOTE | 2018-03-03 10:23 | Progress Note ---
DATE: 03/03/2018 PULMONARY PROGRESS NOTE TIME: 8:25 a.m. SUBJECTIVE: The patient denies complaints. He denies shortness of breath or cough. He just had breakfast. He feels comfortable. OBJECTIVE: GENERAL: The patient is quite awake and alert and oriented. He is in no distress. VITAL SIGNS: Temperature is 36.8. CARDIOVASCULAR: Heart rate is 80 beats per minute. The rhythm is regular. Blood pressure 157/75. LUNGS: Auscultation of the lung maunel revealed diminished breath sounds. There are faint rales heard. Respiratory rate 22. Oxygen saturation was 88% on 5-liter nasal cannula. We are trying to keep his oxygen between 88% and 92%. EXTREMITIES: Showed no change in the diffuse color changes of the lower extremities with no significant edema. LABORATORY DATA: White count of 6.12, yesterday was 3.78. Hemoglobin 13.3. Platelets 123,000. Electrolytes show sodium 139, potassium 4.3, chloride 97, bicarbonate 37. BUN is 25 with a creatinine of 0.8. Urine culture is showing Proteus mirabilis. It is pansensitive except for levofloxacin and ciprofloxacin. It is possible this urinary tract infection was contributing to his lethargy as well as the respiratory failure at the time of admission. IMPRESSION: 1. Respiratory failure -- acute on chronic with hypoxia and hypercarbia -- improved. 2. Pulmonary embolism. 3. Chronic obstructive pulmonary disease exacerbation. 4. Atelectasis at both lung bases. 5. Small pleural effusion. 6. Urinary tract infection. The case was discussed with Dr. Vazquez last evening. Apparently, he has spoken with family members and a decision was made for no long-term anticoagulation due to the high risk of falling. There is an ortho consult from Dr. Morel. He indicates that one could allow mobilization in and out of bed as tolerated. He also may weightbear as tolerated and transferring. Thus, it would seem that the patient would still be a significant fall risk. Therefore, it seems most prudent to avoid anticoagulation at the time of discharge. The patient's respiratory status is improved compared with when he first presented. By history of the blood gas done at the other hospital, he does have significant hypercarbia and hypoxia. I believe he should be continued on nebulizer treatments q.i.d. following discharge. I am doubtful he will wear CPAP or BiPAP. He did refuse again last evening. I will see again only if specifically requested. Thank you for allowing me to assist in his care.
--- NOTE | 2018-03-03 11:32 | Hospitalist Progress Note ---
Date of Service March 03, 2018 Assessment & Plan (1) Encephalopathy: Likely metabolic encephalopathy in setting of baseline dementia, UTI Multi factorial:hypercapnia; narcosis, H/O dementia H/O CVA in the past as per POA CT head:Senescent changes as above with no hemorrhage, mass effect, or evidence of acute territorial ischemia by CT criteria. Mental status seemed to be back to baseline UTI: Urine culture: gram negative bacilli continue Aztreonam Day #2 Possible small Acute PE Past hx DVT as per records Recent confinement at [place] [facility] for left hip fracture not requiring operative intervention. Not a candidate for detention anticoagulation given H/O multiple falls leading to fractures, H/O subdural hematoma--(Daughter -POA is agreed with management) venous doppler: no DVT --CTA from [facility] [place]--Many artifacts --Continue oxygen support --No aggresive measures/surgeries per POA/Palliative Care --Appreciate Pulmnology Input --Continue Lovenox while hospitalized only --No plan to continue anticoagulation upon discharge Fracture of greater trochanter of left femur: 2/2 fall as per POA Multiple Compression deformities of Thoracic and lumbar Vertebrae Evaluated by (Orthopedics) at [facility] [place]--Recommended conservative management POA is aware Pain control Appreciate Orthopedics Input Weight bearing/mobilization as tolerated Continue PT/OT Acute on chronic Hypercapnic/Hypoxic respiratory failure On 2 liters of oxygen chronically Multifactorial: COPD, CYRIL, PE Non complaint with CPAP as per records Continue oxygen support, Duonebs BiPAP/CPAP PRN Appreciate Pulmnology Input H/O multiple falls/Fractures Ambulatory dysfunction Recent fall leading to left hip fracture PT/PT Fall precautions Needs placement 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 DVT Px: On Lovenox Code Status: DNI/DNR Appreciate palliative care help Disposition: services executive consulted Family Contact: Patient's POA, Ms. Sonia Will: contact number [phone] Subjective Patient is seen and examined at bedside Patient is doing much better today More alert, awake today Mental status seemed to be back to baseline Offers no complaints Discussed with Pulmnology and patient's family today Plan to change [place] today Plan for PT/OT Today Physical Exam 2 Vital Signs (Past 24 Hours): Last Vital Signs Temp 36.8 C 03/03/18 07:41 Pulse 80 03/03/18 07:41 Resp 22 03/03/18 11:11 BP 157/75 H 03/03/18 07:41 Pulse Ox 90 03/03/18 11:11 Physical Exam: Physical Exam: Vitals signs as noted above General Appearance:No apparent distress Head: normocephalic, Atraumatic, +hearing loss Eyes: normal inspection, EOMI Neck: supple, Trachea midline Respiratory/Chest: Decreased breath sounds, CTA Cardiovascular: S1, S2, + systolic murmur Abdomen/GI:Soft, Non tender, Bowel sounds present Extremities/Musculoskelatal:normal inspection, Chronic LE venous stasis changes , decreased ROM of L LE Neurologic/Psych:alert, awake, complete neuro exam could not be performed Results & Data Laboratory Results Short CBC 03/03/18 Range/Units 06:13 WBC 6.12 (4.8-10.8) K/uL Hgb 13.3 L (14.0-18.0) g/dL Hct 42.3 (42-52) % Plt Count 123 L (130-400) K/uL BMP 03/03/18 06:13 Sodium 139 Potassium 4.3 Chloride 97 L Carbon Dioxide 37 H BUN 25 H Creatinine 0.80 Glucose 138 H Calcium 8.5
--- NOTE | 2018-03-03 12:24 | Palliative Care Progress Note ---
Date of Service March 03, 2018 Assessment & Plan (1) Goals of care, counseling/discussion: -82 year old male with PMH moderate vascular dementia, CVA, subdural hematoma, hearing impairment, spinal surgery, chronic pain with intrathecal pain pump, CYRIL noncompliant with CPAP, CO2 retention and others presented from [facility] for confusion, s/p fall with left trochanter fracture, and evaluation of his pain pump. -Patient appears to be back to his baseline mental status. He was able to follow commands and was appropriate in stating what his plan of jo as for proceeding to [facility]. -He was not the best historian related to his illness. -Per previous discussion with patient family, no aggressive measures to be taken with no escalation in care. The plan is to transition to [facility]. -FAST score 5 at baseline, indicating moderate dementia. This was discussed with his daughter. -Sonia is aware that patient is not currently able to make his own decisions per previous discussion and wishes were stated as the following: He would never wanted to live in a debilitated state and would not want aggressive or invasive measures such as CPR, intubation, surgeries, etc. She is aware of the fracture and that there is no plan for surgery. -Pain pump managed by Lillian Gamboa PA-C and pain management team. They have been following with patient for 6 years. (2) Vascular dementia: -FAST score 5 at baseline. -Discussed with patient's daughter that with each illness and hospitalization, dementia can worsen and complicates recovery process. She verbalized understanding and states that she has seen this pattern occur with previous hospitalizations. (3) Fracture of greater trochanter of left femur: -2/2 fall. No plan for surgery. Patient would not want surgery per his daughter, Sonia Will. (4) Presence of intrathecal pump: -Managed by pain management team. -Patient appears comfortable. (5) CYRIL (obstructive sleep apnea): (6) H/O: CVA (cerebrovascular accident): (7) Pulmonary embolism: -Heparin gtt (which is now on hold until CT head can be obtained to rule out bleed). (8) Ambulatory dysfunction: (9) History of lumbosacral spine surgery: Subjective I met with patient in his room. Patient was lying in his bed, resting. Patient opened his eyes and followed commands appropriately. He stated that he does not have pain and said "I want to go to [facility]". He said that his girlfriend lives there and they have been together 16 years. He appears to be back to his baseline mental status. Physical Exam 2 Vital Signs (Past 24 Hours): Last Vital Signs Temp 37.1 C 03/03/18 11:28 Pulse 102 H 03/03/18 11:28 Resp 22 03/03/18 11:28 BP 119/71 03/03/18 11:28 Pulse Ox 90 03/03/18 11:28 Physical Exam: Patient sitting in his bed Eyes: PERRL, conjunctivae normal, anicteric sclerae Neck: trachea midline, no thyromegaly Cardiovascular: RRR, no murmur, no edema Rate/Rhythm: regular rate Heart Sounds: normal S1 and normal S2 Gastrointestinal (Abdomen): normal bowel sounds, soft, nontender, no hepatosplenomegaly Inspection/Auscultation: abdomen normal to inspection Percussion/Palpation: abdomen soft Skin: + turgor decreased, + skin tightening and + ecchymosis lower extremities dark brown with PVD Psychiatric: A+Ox3, euthymic affect Eye Contact: good eye contact Affect : euthymic affect Time Spent Midlevel Total time spent 25 minutes with > 50% of that time reviewing the chart, assessing the patient, discussing POC with the IDT and patient.
[2018-03-04] MEDS: AZTREONAM 500 MG in DEXTROSE 5% 100 ML IV SCH ×3 (01:57→18:01)
[2018-03-04] MEDS: ENOXAPARIN 80 MG/0.8 ML SYR SQ SCH ×2 (06:07→18:02)
[2018-03-04 06:15] LABS: Hematocrit (blood only) 39.1 % (42-52); Hemoglobin 12.4 g/dL (14.0-18.0); Mean Corpuscular Hgb Conc 31.7 g/dL (32-36); Mean Corpuscular Volume 89.3 fL (80-100); Mean Platelet Volume 10.5 fL (7.4-10.4); Platelet Count 125 K/uL (130-400); RDW Coefficient of Variation 14.1 % (11.5-14.5); RDW Standard Deviation 46.1 fL (36.4-46.3); Red Blood Count 4.38 M/uL (4.7-6.1); White Blood Count 5.54 K/uL (4.8-10.8)
[2018-03-04 06:26] LABS: Partial Thromboplastin Ratio 1.3; Partial Thromboplastin Time 33.1 Seconds (21.0-31.0)
[2018-03-04] MEDS: ALBUT/IPRATROP 3MG/0.5MG NEB 3 ML VIAL NEB SCH ×4 (07:08→19:03)
[2018-03-04] MEDS: FLUTICASONE/SALMETEROL 250/50 (ADVAIR) 14 PUFF/1 INHALER INH SCH ×2 (08:18→20:52)
[2018-03-04] MEDS: ASPIRIN 81 MG ECTAB PO SCH (08:18)
[2018-03-04] MEDS: DOCUSATE SODIUM/SENNA 50/8.6MG TAB PO SCH (08:18)
[2018-03-04] MEDS: levETIRAcetam 500 MG TAB PO SCH ×2 (08:18→20:51)
[2018-03-04] MEDS: FINASTERIDE 5 MG TAB PO SCH (08:18)
[2018-03-04] MEDS: PRAVASTATIN SOD 40 MG TAB PO SCH (08:18)
[2018-03-04] MEDS: THIAMINE HCL 100 MG TAB PO SCH (08:18)
[2018-03-04] MEDS: FUROSEMIDE 20 MG TAB PO SCH (08:18)
[2018-03-04] MEDS: INSULIN ASPART 100 UNITS/ML 3 ML PEN SC SCH ×4 (08:19→21:15)
[2018-03-04] MEDS: ACETAMINOPHEN 325 MG TAB PO PRN (12:42)
--- NOTE | 2018-03-04 13:30 | Hospitalist Progress Note ---
Date of Service March 04, 2018 Assessment & Plan (1) Encephalopathy: Likely metabolic encephalopathy in setting of baseline dementia, UTI Multi factorial:hypercapnia; narcosis, H/O dementia H/O CVA in the past as per POA CT head:Senescent changes as above with no hemorrhage, mass effect, or evidence of acute territorial ischemia by CT criteria. Mental status seemed to be back to baseline UTI: Urine culture:Proteus continue Aztreonam Day #3 Possible small Acute PE Past hx DVT as per records Recent confinement at [facility] for left hip fracture not requiring operative intervention. 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 Evaluated by (Orthopedics) at [facility]--Recommended conservative management POA is aware Pain control Appreciate Orthopedics Input Weight bearing/mobilization as tolerated Continue PT/OT Acute on chronic Hypercapnic/Hypoxic respiratory failure On 2 liters of oxygen chronically Multifactorial: COPD, CYRIL, PE Non complaint with CPAP as per records Continue oxygen support, Duonebs BiPAP/CPAP PRN Appreciate Pulmnology Input H/O multiple falls/Fractures Ambulatory dysfunction Recent fall leading to left hip fracture PT/PT Fall precautions Needs placement waiting for Insurence Auth 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 DVT Px: On Lovenox Code Status: DNI/DNR Appreciate palliative care help Disposition: client services administrator consulted Plan to discharge to [facility] when insurance auth. done Family Contact: Patient's POA, Ms. Scott Smeal: contact number [phone] Subjective Patient is seen and examined at bedside More lethargic today Remains oriented Reports generalized pain Discussed with Pulmnology today Physical Exam 2 Vital Signs (Past 24 Hours): Last Vital Signs Temp 36.6 C 03/04/18 12:40 Pulse 108 H 03/04/18 12:40 Resp 18 03/04/18 12:40 BP 120/76 03/04/18 12:40 Pulse Ox 89 L 03/04/18 12:40 Physical Exam: Physical Exam: Vitals signs as noted above General Appearance:No apparent distress Head: normocephalic, Atraumatic, +hearing loss Eyes: normal inspection, EOMI Neck: supple, Trachea midline Respiratory/Chest: Decreased breath sounds, CTA Cardiovascular: S1, S2, + systolic murmur Abdomen/GI:Soft, Non tender, Bowel sounds present Extremities/Musculoskelatal:normal inspection, Chronic LE venous stasis changes , decreased ROM of L LE Neurologic/Psych:alert, awake, grossly no focal deficits Results & Data Laboratory Results Short CBC 03/04/18 Range/Units 05:53 WBC 5.54 (4.8-10.8) K/uL Hgb 12.4 L (14.0-18.0) g/dL Hct 39.1 L (42-52) % Plt Count 125 L (130-400) K/uL
[2018-03-04] MEDS: HYDROCODONE/ACETAMOPHEN 5/325MG TAB PO PRN (17:09)
[2018-03-05] MEDS: AZTREONAM 500 MG in DEXTROSE 5% 100 ML IV SCH ×3 (01:42→17:17)
[2018-03-05] MEDS: ENOXAPARIN 80 MG/0.8 ML SYR SQ SCH ×2 (05:39→17:18)
[2018-03-05 06:22] LABS: Hematocrit (blood only) 36.5 % (42-52); Hemoglobin 11.8 g/dL (14.0-18.0)
[2018-03-05 06:51] LABS: Partial Thromboplastin Ratio 1.4; Partial Thromboplastin Time 37.3 Seconds (21.0-31.0)
[2018-03-05] MEDS: ALBUT/IPRATROP 3MG/0.5MG NEB 3 ML VIAL NEB SCH ×4 (06:57→19:04)
[2018-03-05] MEDS: FLUTICASONE/SALMETEROL 250/50 (ADVAIR) 14 PUFF/1 INHALER INH SCH ×2 (07:51→20:56)
[2018-03-05] MEDS: DOCUSATE SODIUM/SENNA 50/8.6MG TAB PO SCH (07:51)
[2018-03-05] MEDS: FUROSEMIDE 20 MG TAB PO SCH (07:51)
[2018-03-05] MEDS: PRAVASTATIN SOD 40 MG TAB PO SCH (07:51)
[2018-03-05] MEDS: FINASTERIDE 5 MG TAB PO SCH (07:51)
[2018-03-05] MEDS: levETIRAcetam 500 MG TAB PO SCH ×2 (07:52→20:56)
[2018-03-05] MEDS: THIAMINE HCL 100 MG TAB PO SCH (07:52)
[2018-03-05] MEDS: ASPIRIN 81 MG ECTAB PO SCH (07:52)
[2018-03-05] MEDS: INSULIN ASPART 100 UNITS/ML 3 ML PEN SC SCH ×4 (07:53→20:56)
--- NOTE | 2018-03-05 12:23 | Hospitalist Progress Note ---
Date of Service March 05, 2018 Assessment & Plan (1) Encephalopathy: Likely metabolic encephalopathy in setting of baseline dementia, UTI Multi factorial:hypercapnia; narcosis, H/O dementia H/O CVA in the past as per POA CT head:Senescent changes as above with no hemorrhage, mass effect, or evidence of acute territorial ischemia by CT criteria. Mental status seemed to be back to baseline UTI: Urine culture:Proteus continue Aztreonam Day #4 [place] is changed Possible small Acute PE Past hx DVT as per records Recent confinement at [facility] for left hip fracture not requiring operative intervention. 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 given H/O multiple falls leading to fractures, H/O subdural hematoma--(Daughter -POA is agreed with management) venous doppler: no DVT --CTA from [facility]--Many artifacts --Continue oxygen support --No aggresive measures/surgeries per POA/Palliative Care --Appreciate Pulmnology Input --Continue Lovenox while hospitalized only --No plan to continue anticoagulation upon discharge Fracture of greater trochanter of left femur: 2/2 fall as per POA Multiple Compression deformities of Thoracic and lumbar Vertebrae Evaluated by (Orthopedics) at [facility]--Recommended conservative management POA is aware Pain control Appreciate Orthopedics Input Weight bearing/mobilization as tolerated Continue PT/OT Acute on chronic Hypercapnic/Hypoxic respiratory failure On 2 liters of oxygen chronically Multifactorial: COPD, CYRIL, PE Non complaint with CPAP as per records Continue oxygen support, Duonebs BiPAP/CPAP PRN Appreciate Pulmnology Input H/O multiple falls/Fractures Ambulatory dysfunction Recent fall leading to left hip fracture PT/PT Fall precautions Needs placement waiting for Insurence Auth 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 Scott eal: contact number [phone] Subjective Patient is seen and examined at bedside Patient feels better today Reports chronic back pain and minimal hip pain Offers no other complaints Denies chest pain, dizziness Physical Exam 2 Vital Signs (Past 24 Hours): Last Vital Signs Temp 37.0 C 03/05/18 12:16 Pulse 87 03/05/18 12:16 Resp 18 03/05/18 12:16 BP 135/60 03/05/18 12:16 Pulse Ox 88 L 03/05/18 12:16 Physical Exam: Physical Exam: Vitals signs as noted above General Appearance:No apparent distress Head: normocephalic, Atraumatic, +hearing loss Eyes: normal inspection, EOMI Neck: supple, Trachea midline Respiratory/Chest: Decreased breath sounds, CTA Cardiovascular: S1, S2, + systolic murmur Abdomen/GI:Soft, Non tender, Bowel sounds present Extremities/Musculoskelatal:normal inspection, Chronic LE venous stasis changes , decreased ROM of L LE Neurologic/Psych:alert, awake, grossly no focal deficits Results & Data Laboratory Results Short CBC 03/05/18 Range/Units 05:57 Hgb 11.8 L (14.0-18.0) g/dL Hct 36.5 L (42-52) %
[2018-03-05] MEDS: HYDROCODONE/ACETAMOPHEN 5/325MG TAB PO PRN (21:07)
[2018-03-06] MEDS: AZTREONAM 500 MG in DEXTROSE 5% 100 ML IV SCH ×3 (02:05→17:48)
[2018-03-06] MEDS: ENOXAPARIN 80 MG/0.8 ML SYR SQ SCH ×2 (06:23→17:47)
[2018-03-06 06:53] LABS: Hematocrit (blood only) 37.1 % (42-52); Hemoglobin 11.7 g/dL (14.0-18.0); Mean Corpuscular Hgb Conc 31.5 g/dL (32-36); Mean Platelet Volume 10.6 fL (7.4-10.4); Platelet Count 164 K/uL (130-400); RDW Coefficient of Variation 14.3 % (11.5-14.5); RDW Standard Deviation 47.1 fL (36.4-46.3); Red Blood Count 4.12 M/uL (4.7-6.1); White Blood Count 6.48 K/uL (4.8-10.8)
[2018-03-06 06:58] LABS: Partial Thromboplastin Ratio 1.3; Partial Thromboplastin Time 34.3 Seconds (21.0-31.0)
[2018-03-06] MEDS: ALBUT/IPRATROP 3MG/0.5MG NEB 3 ML VIAL NEB SCH ×4 (06:58→19:01)
[2018-03-06 07:21] LABS: BUN Creatinine Ratio 27.4 (10-20); Calcium 8.4 mg/dl (8.5-10.1); Creatinine Clr Calc Pharmacy 61.9 ml/min; Est GFR (African American) 92.3; Est GFR (Non-African American) 79.6; Potassium 4.2 mmol/L (3.5-5.1)
[2018-03-06] MEDS: DOCUSATE SODIUM/SENNA 50/8.6MG TAB PO SCH (07:39)
[2018-03-06] MEDS: PRAVASTATIN SOD 40 MG TAB PO SCH (07:39)
[2018-03-06] MEDS: FINASTERIDE 5 MG TAB PO SCH (07:40)
[2018-03-06] MEDS: ASPIRIN 81 MG ECTAB PO SCH (07:40)
[2018-03-06] MEDS: levETIRAcetam 500 MG TAB PO SCH ×2 (07:40→19:44)
[2018-03-06] MEDS: FUROSEMIDE 20 MG TAB PO SCH (07:40)
[2018-03-06] MEDS: FLUTICASONE/SALMETEROL 250/50 (ADVAIR) 14 PUFF/1 INHALER INH SCH ×2 (07:40→19:44)
[2018-03-06] MEDS: THIAMINE HCL 100 MG TAB PO SCH (07:40)
[2018-03-06] MEDS: INSULIN ASPART 100 UNITS/ML 3 ML PEN SC SCH ×4 (07:41→20:56)
[2018-03-06] MEDS: INSULIN GLARGINE 100 UNIT/ML VIAL SC SCH ×2 (09:42→20:57)
--- NOTE | 2018-03-06 15:09 | Hospitalist Progress Note ---
Date of Service March 06, 2018 Assessment & Plan (1) Encephalopathy: Likely metabolic encephalopathy in setting of baseline dementia, UTI Multi factorial:hypercapnia; narcosis, H/O dementia H/O CVA in the past as per POA CT head:Senescent changes as above with no hemorrhage, mass effect, or evidence of acute territorial ischemia by CT criteria. Mental status seemed to be back to baseline UTI: Urine culture:Proteus continue Aztreonam Day #5/7 [place] is changed Possible small Acute PE Past hx DVT as per records Recent confinement at [facility] for left hip fracture not requiring operative intervention. Not a candidate for mcc anticoagulation given H/O multiple falls leading to fractures, H/O subdural hematoma--(Daughter -POA is agreed with management) venous doppler: no DVT --CTA from [facility]--Many artifacts --Continue oxygen support --No aggresive measures/surgeries per POA/Palliative Care --Appreciate Pulmnology Input --Continue Lovenox while hospitalized only --No plan to continue anticoagulation (Therapeutic lovenox dose) upon discharge Fracture of greater trochanter of left femur: 2/2 fall as per POA Multiple Compression deformities of Thoracic and lumbar Vertebrae Evaluated by (Orthopedics) at [facility]--Recommended conservative management POA is aware Pain control Appreciate Orthopedics Input Weight bearing/mobilization as tolerated Continue PT/OT Can consider SQ lovenox for DVT Px for 2-4 weeks upon discharge Acute on chronic Hypercapnic/Hypoxic respiratory failure On 2 liters of oxygen chronically Multifactorial: COPD, CYRIL, PE Non complaint with CPAP as per records Continue oxygen support, Duonebs BiPAP/CPAP PRN Appreciate Pulmnology Input H/O multiple falls/Fractures Ambulatory dysfunction Recent fall leading to left hip fracture PT/PT Fall precautions Needs placement, waiting for Insurance Auth 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 Scott Smeal: contact number [phone] Subjective Patient is seen and examined at bedside Reports chronic hip pain On and off desaturates when off oxygen No new complaints Denies chest pain, dizziness Waiting for placement Physical Exam 2 Vital Signs (Past 24 Hours): Last Vital Signs Temp 36.7 C 03/06/18 12:28 Pulse 112 H 03/06/18 12:28 Resp 18 03/06/18 12:28 BP 159/84 H 03/06/18 12:28 Pulse Ox 88 L 03/06/18 12:28 Physical Exam: Physical Exam: Vitals signs as noted above General Appearance:No apparent distress Head: normocephalic, Atraumatic, +hearing loss Eyes: normal inspection, EOMI Neck: supple, Trachea midline Respiratory/Chest: Decreased/coarse breath sounds, No wheezes Cardiovascular: S1, S2, + systolic murmur Abdomen/GI:Soft, Non tender, Bowel sounds present Extremities/Musculoskelatal:normal inspection, Chronic LE venous stasis changes , decreased ROM of L LE Neurologic/Psych:alert, awake, grossly no focal deficits Results & Data Laboratory Results Short CBC 03/06/18 Range/Units 06:41 WBC 6.48 (4.8-10.8) K/uL Hgb 11.7 L (14.0-18.0) g/dL Hct 37.1 L (42-52) % Plt Count 164 (130-400) K/uL [facility] 03/06/18 06:41 Sodium 135 L Potassium 4.2 Chloride 96 L Carbon Dioxide 36 H BUN 23 H Creatinine 0.86 Glucose 229 H Calcium 8.4 L
[2018-03-07] MEDS: AZTREONAM 500 MG in DEXTROSE 5% 100 ML IV SCH ×2 (02:39→10:00)
[2018-03-07] MEDS: ENOXAPARIN 80 MG/0.8 ML SYR SQ SCH ×2 (05:30→17:28)
[2018-03-07 05:45] LABS: Partial Thromboplastin Ratio 1.3; Partial Thromboplastin Time 33.6 Seconds (21.0-31.0)
[2018-03-07 05:56] LABS: BUN Creatinine Ratio 30.9 (10-20); Calcium 8.3 mg/dl (8.5-10.1); Creatinine Clr Calc Pharmacy 85.8 ml/min; Est GFR (African American) 105.6; Est GFR (Non-African American) 91.1; Potassium 4.1 mmol/L (3.5-5.1)
[2018-03-07] MEDS: ALBUT/IPRATROP 3MG/0.5MG NEB 3 ML VIAL NEB SCH ×4 (07:05→18:59)
[2018-03-07] MEDS: FUROSEMIDE 20 MG TAB PO SCH (07:39)
[2018-03-07] MEDS: THIAMINE HCL 100 MG TAB PO SCH (07:39)
[2018-03-07] MEDS: ASPIRIN 81 MG ECTAB PO SCH (07:40)
[2018-03-07] MEDS: levETIRAcetam 500 MG TAB PO SCH ×2 (07:40→21:27)
[2018-03-07] MEDS: DOCUSATE SODIUM/SENNA 50/8.6MG TAB PO SCH (07:40)
[2018-03-07] MEDS: PRAVASTATIN SOD 40 MG TAB PO SCH (07:40)
[2018-03-07] MEDS: FLUTICASONE/SALMETEROL 250/50 (ADVAIR) 14 PUFF/1 INHALER INH SCH ×2 (07:41→21:26)
[2018-03-07] MEDS: FINASTERIDE 5 MG TAB PO SCH (07:41)
[2018-03-07] MEDS: INSULIN GLARGINE 100 UNIT/ML VIAL SC SCH ×2 (07:42→21:39)
[2018-03-07] MEDS: INSULIN ASPART 100 UNITS/ML 3 ML PEN SC SCH ×4 (07:42→21:40)
--- NOTE | 2018-03-07 14:17 | Hospitalist Progress Note ---
Date of Service March 07, 2018 Assessment & Plan (1) Encephalopathy: Likely metabolic encephalopathy in setting of baseline dementia, UTI Multi factorial:hypercapnia; narcosis, H/O dementia H/O CVA in the past as per POA CT head:Senescent changes as above with no hemorrhage, mass effect, or evidence of acute territorial ischemia by CT criteria. Mental status seemed to be back to baseline H/O Seizures: Continue Keppra DM II: A1C:7.2 Hold home PO meds Utilize ISS while hospitalized Hypertension: continue home meds monitor Chronic anemia chronic Thrombocytopenia Hb at baseline monitor CBC while on Lovenox Chronic Pain: h/o lumbosacral spine surgery Intrathecal Pump management per Pain management--Appreciate Input Past tobacco abuse/alcohol abuse as per records. 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 Sonia Will: contact number [phone] (2) Fracture of greater trochanter of left femur: Patient worked input Conservative management (3) Ambulatory dysfunction: Will be transferred to [facility] Continue PT OT (4) Pulmonary embolism: Possible small Acute PE Past hx DVT as per records Recent confinement at [facility] for left hip fracture not requiring operative intervention. 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 given H/O multiple falls leading to fractures, H/O subdural hematoma--(Daughter -POA is agreed with management) venous doppler: no DVT --CTA from [facility]--Many artifacts --Continue oxygen support --No aggresive measures/surgeries per POA/Palliative Care --Appreciate Pulmnology Input --Continue Lovenox while hospitalized only --No plan to continue anticoagulation (Therapeutic lovenox dose) upon discharge (5) Presence of intrathecal pump: Appreciate input from pain therapist Continue pain pump for now (6) CYRIL (obstructive sleep apnea): Continue current oxygen CPAP/BiPAP (7) Goals of care, counseling/discussion: Palliative care consulted Appreciate input and recommendation Patient will be going to [facility] tomorrow (8) UTI (urinary tract infection): Urine culture:Proteus continue Aztreonam Day #6/7 [place] is changed Antibiotic will be discontinued tomorrow before discharge (9) Vascular dementia: Subjective He is an 82-year-old male with significant past medical history including CAD/ PVD/CVA,chronic respiratory failure, COPD on supplemental O2. CYRIL as per records,DM2 insulin requiring, chronic back pain secondary to postlaminectomy syndrome,chronic neuropathy on chronic Dilaudid pain pump, hypertension, history of subdural hematoma as per records, seizure disorder, past hx DVT, pulmonary embolism ambulatory dysfunction, BPH, hearing loss, history of MRSA endocarditis status post Vancomycin treatment, Chronic anemia (baseline hemoglobin of 12), chronic thrombocytopenia, past tobacco abuse/alcohol abuse as per records. He was transferred from [place] [facility] with fracture of the left greater trochanter and encephalopathy. Patient was seen and examined in telemetry unit Denies any symptoms today and wants to be discharged Denies any chest pain, shortness of breath, palpitation, any abdominal pain nausea and vomiting Has been getting intravenous antibiotic for UTI Physical Exam 2 Vital Signs (Past 24 Hours): Last Vital Signs Temp 36.5 C 03/07/18 12:26 Pulse 89 03/07/18 12:26 Resp 18 03/07/18 12:26 BP 124/64 03/07/18 12:26 Pulse Ox 96 03/07/18 12:26 Constitutional: WD/WN, vitals as above + altered mental status and + frail appearing; no acute distress Eyes: PERRL, conjunctivae normal, anicteric sclerae reactive pupils and + dilated pupils (4-5mm) ENMT: Ears: + hearing impairment Neck: trachea midline, no thyromegaly normal visual inspection and trachea midline Respiratory: normal respiratory effort and + uses accessory muscles (Minimal) Auscultation: + diminished lung sounds (Bilaterally specially at the bases) Cardiovascular: RRR, no murmur, no edema Rate/Rhythm: regular rate and regular rhythm Heart Sounds: normal S1, normal S2 and + murmur Vessels: normal peripheral pulses; no JVD Extremities: no edema Gastrointestinal (Abdomen): normal bowel sounds, soft, nontender, no hepatosplenomegaly Inspection/Auscultation: abdomen normal to inspection and normal bowel sounds; abdomen not distended Percussion/Palpation: abdomen soft ; abdomen nontender Skin: + turgor decreased, + skin tightening and + ecchymosis Neurologic: moves all extremities and awake Speech / Cognition: + abnormal speech (garbled (baseline)) Psychiatric: A+Ox3, euthymic affect Orientation: alert, oriented to person and oriented to place Eye Contact: good eye contact Affect: euthymic affect, + irritable affect and + angry affect Results & Data Laboratory Results BMP 03/07/18 05:27 Sodium 137 Potassium 4.1 Chloride 98 Carbon Dioxide 36 H BUN 19 H Creatinine 0.62 Glucose 160 H Calcium 8.3 L Medications Administered Current Inpatient Medications Acetaminophen (Tylenol) 650 mg PO Q4H PRN PRN Reason: Pain or Fever Stop: 03/31/18 02:25 Last Admin: 03/04/18 12:42 Dose: 650 mg Hydrocodone Bitart/Acetaminophen ([place] 5/325) 1 tab PO Q4HWA PRN PRN Reason: Pain Stop: 03/15/18 09:13 Last Admin: 03/05/18 21:07 Dose: 1 tab Albuterol (Duoneb) 3 ml NEB QIDR [facility] Stop: 03/31/18 15:59 Last Admin: 03/07/18 10:52 Dose: 3 ml Aspirin (Ecotrin) 81 mg PO DAILY EDUARDO Stop: 03/31/18 08:59 Last Admin: 03/07/18 07:40 Dose: 81 mg Dextrose (Dextrose 50%) 25 - 50 ml IV UD PRN; Protocol PRN Reason: Hypoglycemia Protocol Stop: 03/31/18 02:27 Last Admin: 03/01/18 20:14 Dose: 25 ml Enoxaparin Sodium (Lovenox) 70 mg 1 mg/kg (70 mg) SQ Q12H EDUARDO Stop: 03/31/18 16:29 Last Admin: 03/07/18 05:30 Dose: 70 mg Finasteride (Proscar) 5 mg PO DAILY EDUARDO Stop: 03/31/18 08:59 Last Admin: 03/07/18 07:41 Dose: 5 mg Furosemide (Lasix) 20 mg PO DAILY EDUARDO Stop: 03/31/18 08:59 Last Admin: 03/07/18 07:39 Dose: 20 mg Glucagon (Glucagen) 1 mg SQ UD PRN; Protocol PRN Reason: Hypoglycemia Protocol Stop: 03/31/18 02:27 Glucose (Glucose 40%) 15 - 30 gm PO UD PRN; Protocol PRN Reason: Hypoglycemia Protocol Stop: 03/31/18 02:27 Glucose (Dex4 Glucose) 4 - 8 tabs PO UD PRN; Protocol PRN Reason: Hypoglycemia Protocol Stop: 03/31/18 02:27 Aztreonam 500 mg/ Dextrose 105 mls @ 100 mls/hr IV Q8H EDUARDO; Protocol Stop: 03/07/18 17:59 Last Infusion: 03/07/18 11:03 Dose: Infused Insulin Aspart (Novolog Flexpen) 0 units SC ACHS [facility] Stop: 03/31/18 07:29 Last Admin: 03/07/18 12:43 Dose: 4 units Insulin Glargine (Lantus) 5 units SC BID [facility] Stop: 04/05/18 08:59 Last Admin: 03/07/18 07:42 Dose: 5 units Levetiracetam (Keppra) 500 mg PO BID [facility] Stop: 03/31/18 08:59 Last Admin: 03/07/18 07:40 Dose: 500 mg Lidocaine/Prilocaine ([place] 2.5%) 1 ea EXT PRN PRN PRN Reason: blood draw Stop: 03/31/18 02:02 Last Admin: 03/01/18 02:20 Dose: 1 ea Miscellaneous (Carbohydrates For Hypoglycemia) 15 - 30 gm PO UD PRN PRN Reason: Hypoglycemia Treatment Stop: 03/31/18 02:27 Last Admin: 03/01/18 07:56 Dose: 15 gm Naloxone HCl (Narcan) 0.4 mg IV Q5M PRN; Protocol PRN Reason: Oversedation/Resp Depression Stop: 03/15/18 05:00 Nitroglycerin (Nitrostat) 0.4 mg SL UD PRN PRN Reason: Chest Pain Stop: 03/31/18 02:25 Olanzapine (Zyprexa) 2.5 mg IM Q4H PRN PRN Reason: Anxiety/Agitation Stop: 03/31/18 04:37 Last Admin: 03/01/18 05:29 Dose: 2.5 mg Polyethylene Glycol (Miralax Powder Packet) 17 gm PO DAILY PRN PRN Reason: Constipation Stop: 03/31/18 08:59 Pravastatin Sodium (Pravachol) 40 mg PO DAILY [facility] Stop: 03/31/18 08:59 Last Admin: 03/07/18 07:40 Dose: 40 mg Fluticasone/Salmeterol (Advair Diskus 250/50) 1 puffs INH BID [facility] Stop: 03/31/18 08:59 Last Admin: 03/07/18 07:41 Dose: 1 puffs Senna/Docusate Sodium (Senokot S) 1 tab PO DAILY [facility] Stop: 03/31/18 08:59 Last Admin: 03/07/18 07:40 Dose: 1 tab Thiamine HCl (Vitamin B-1) 500 mg PO DAILY [facility] Stop: 03/31/18 08:59 Last Admin: 03/07/18 07:39 Dose: 500 mg
[2018-03-07] MEDS: ACETAMINOPHEN 325 MG TAB PO PRN (16:19)
[2018-03-08] MEDS: ENOXAPARIN 80 MG/0.8 ML SYR SQ SCH (05:42)
[2018-03-08 06:20] LABS: Hematocrit (blood only) 40.9 % (42-52); Hemoglobin 12.9 g/dL (14.0-18.0); Mean Corpuscular Hgb Conc 31.5 g/dL (32-36); Mean Corpuscular Volume 91.7 fL (80-100); Mean Platelet Volume 10.7 fL (7.4-10.4); Platelet Count 245 K/uL (130-400); RDW Coefficient of Variation 13.9 % (11.5-14.5); RDW Standard Deviation 46.6 fL (36.4-46.3); Red Blood Count 4.46 M/uL (4.7-6.1); White Blood Count 5.85 K/uL (4.8-10.8)
[2018-03-08 06:59] LABS: Partial Thromboplastin Ratio 1.4; Partial Thromboplastin Time 35.4 Seconds (21.0-31.0)
[2018-03-08] MEDS: ALBUT/IPRATROP 3MG/0.5MG NEB 3 ML VIAL NEB SCH ×2 (07:09→11:17)
[2018-03-08] MEDS: INSULIN ASPART 100 UNITS/ML 3 ML PEN SC SCH ×2 (09:10→12:48)
[2018-03-08] MEDS: ASPIRIN 81 MG ECTAB PO SCH (09:12)
[2018-03-08] MEDS: FUROSEMIDE 20 MG TAB PO SCH (09:12)
[2018-03-08] MEDS: FLUTICASONE/SALMETEROL 250/50 (ADVAIR) 14 PUFF/1 INHALER INH SCH (09:12)
[2018-03-08] MEDS: PRAVASTATIN SOD 40 MG TAB PO SCH (09:12)
[2018-03-08] MEDS: DOCUSATE SODIUM/SENNA 50/8.6MG TAB PO SCH (09:12)
[2018-03-08] MEDS: FINASTERIDE 5 MG TAB PO SCH (09:12)
[2018-03-08] MEDS: THIAMINE HCL 100 MG TAB PO SCH (09:13)
[2018-03-08] MEDS: levETIRAcetam 500 MG TAB PO SCH (09:13)
[2018-03-08] MEDS: INSULIN GLARGINE 100 UNIT/ML VIAL SC SCH (09:14)
--- NOTE | 2018-03-08 10:41 | Hospitalist Progress Note ---
Date of Service March 08, 2018 Assessment & Plan (1) Encephalopathy: Likely metabolic encephalopathy in setting of baseline dementia, UTI Multi factorial:hypercapnia; narcosis, H/O dementia H/O CVA in the past as per POA CT head:Senescent changes as above with no hemorrhage, mass effect, or evidence of acute territorial ischemia by CT criteria. Mental status seemed to be back to baseline No more recurrence of syncopal Medically stable H/O Seizures: Continue Keppra No seizure activity DM II: A1C:7.2 Hold home PO meds Utilize ISS while hospitalized Hypertension: continue home meds monitor Chronic anemia chronic Thrombocytopenia Hb at baseline monitor CBC while on Lovenox Chronic Pain: h/o lumbosacral spine surgery Intrathecal Pump management per Pain management--Appreciate Input Past tobacco abuse/alcohol abuse as per records. DVT Px: On Lovenox Code Status: DNI/DNR Appreciate palliative care help Disposition: access services librarian consulted Plan to discharge to [facility] when accepted Family Contact: Patient's POA, Ms. Scott Suman: contact number [phone] (2) Fracture of greater trochanter of left femur: Patient worked input Conservative management Denies any pain (3) Ambulatory dysfunction: Will be transferred to [facility] Continue PT OT (4) Pulmonary embolism: Possible small Acute PE Past hx DVT as per records Recent confinement at [facility] for left hip fracture not requiring operative intervention. Not a candidate for reo asset manager anticoagulation given H/O multiple falls leading to fractures, H/O subdural hematoma--(Daughter -POA is agreed with management) venous doppler: no DVT --[facility] from [facility]--Many artifacts --Continue oxygen support --No aggresive measures/surgeries per POA/Palliative Care --Appreciate Pulmnology Input --Continue Lovenox while hospitalized only --No plan to continue anticoagulation (Therapeutic lovenox dose) upon discharge --Lovenox will be discontinued on discharge as planned previously (5) Presence of intrathecal pump: Appreciate input from pain therapist Continue pain pump for now Pain has been under control (6) CYRIL (obstructive sleep apnea): Continue current oxygen CPAP/BiPAP-as needed (7) Goals of care, counseling/discussion: Palliative care consulted Appreciate input and recommendation Patient will be going to [facility] tomorrow (8) UTI (urinary tract infection): Urine culture:Proteus continue Aztreonam Day #6/7 [place] is changed Antibiotic will be discontinued tomorrow before discharge (9) Vascular dementia: Remains stable with occasional confusion Subjective He is an 82-year-old male with significant past medical history including CAD/ PVD/CVA,chronic respiratory failure, COPD on supplemental O2. CYRIL as per records,DM2 insulin requiring, chronic back pain secondary to postlaminectomy syndrome,chronic neuropathy on chronic Dilaudid pain pump, hypertension, history of subdural hematoma as per records, seizure disorder, past hx DVT, pulmonary embolism ambulatory dysfunction, BPH, hearing loss, history of MRSA endocarditis status post Vancomycin treatment, Chronic anemia (baseline hemoglobin of 12), chronic thrombocytopenia, past tobacco abuse/alcohol abuse as per records. He was transferred from [place] to [facility] with fracture of the left greater trochanter and encephalopathy. Patient was seen and examined in telemetry unit Denies any symptoms today and wants to be discharged Denies any chest pain, shortness of breath, palpitation, any abdominal pain nausea and vomiting Has been getting intravenous antibiotic for UTI 03/08 The patient was seen and examined in telemetry unit Denies any complaints as of today and wants to go back to [facility] Antibiotic course has been finished for UTI Denies any chest pain, shortness of breath, palpitation, abdominal pain, nausea no vomiting, any numbness or tingling in the extremities. Physical Exam 2 Vital Signs (Past 24 Hours): Last Vital Signs Temp 36.9 C 03/08/18 08:00 Pulse 99 H 03/08/18 08:00 Resp 18 03/08/18 08:00 BP 132/66 03/08/18 08:00 Pulse Ox 99 03/08/18 08:00 Physical Exam: Lying in bed comfortably Constitutional: WD/WN, vitals as above + altered mental status and + frail appearing; no acute distress Eyes: PERRL, conjunctivae normal, anicteric sclerae reactive pupils and + dilated pupils (4-5mm) ENMT: Ears: + hearing impairment Neck: trachea midline, no thyromegaly normal visual inspection and trachea midline Respiratory: normal respiratory effort and + uses accessory muscles (Minimal) Auscultation: + diminished lung sounds (Bilaterally specially at the bases) Cardiovascular: RRR, no murmur, no edema Rate/Rhythm: regular rate and regular rhythm Heart Sounds: normal S1, normal S2 and + murmur Vessels: normal peripheral pulses; no JVD Extremities: no edema Gastrointestinal (Abdomen): normal bowel sounds, soft, nontender, no hepatosplenomegaly Inspection/Auscultation: abdomen normal to inspection and normal bowel sounds; abdomen not distended Percussion/Palpation: abdomen soft ; abdomen nontender Skin: + turgor decreased, + skin tightening and + ecchymosis Neurologic: moves all extremities and awake Speech / Cognition: + abnormal speech (garbled (baseline)) Psychiatric: A+Ox3, euthymic affect Orientation: alert, oriented to person and oriented to place Eye Contact: good eye contact Affect: euthymic affect, + irritable affect and + angry affect Results & Data Laboratory Results Short CBC 03/08/18 Range/Units 05:56 WBC 5.85 (4.8-10.8) K/uL Hgb 12.9 L (14.0-18.0) g/dL Hct 40.9 L (42-52) % Plt Count 245 (130-400) K/uL Medications Administered Current Inpatient Medications Acetaminophen (Tylenol) 650 mg PO Q4H PRN PRN Reason: Pain or Fever Stop: 03/31/18 02:25 Last Admin: 03/07/18 16:19 Dose: 650 mg Hydrocodone Bitart/Acetaminophen ([place] 5/325) 1 tab PO Q4HWA PRN PRN Reason: Pain Stop: 03/15/18 09:13 Last Admin: 03/05/18 21:07 Dose: 1 tab Albuterol (Duoneb) 3 ml NEB QIDR [facility] Stop: 03/31/18 15:59 Last Admin: 03/08/18 07:09 Dose: 3 ml Aspirin (Ecotrin) 81 mg PO DAILY [facility]UARD[facility] Stop: 03/31/18 08:59 Last Admin: 03/08/18 09:12 Dose: 81 mg Dextrose (Dextrose 50%) 25 - 50 ml IV UD PRN; Protocol PRN Reason: Hypoglycemia Protocol Stop: 03/31/18 02:27 Last Admin: 03/01/18 20:14 Dose: 25 ml Enoxaparin Sodium (Lovenox) 70 mg 1 mg/kg (70 mg) SQ Q12H EDUARDO Stop: 03/31/18 16:29 Last Admin: 03/08/18 05:42 Dose: 70 mg Finasteride (Proscar) 5 mg PO DAILY [facility] Stop: 03/31/18 08:59 Last Admin: 03/08/18 09:12 Dose: 5 mg Furosemide (Lasix) 20 mg PO DAILY [facility] Stop: 03/31/18 08:59 Last Admin: 03/08/18 09:12 Dose: 20 mg Glucagon (Glucagen) 1 mg SQ UD PRN; Protocol PRN Reason: Hypoglycemia Protocol Stop: 03/31/18 02:27 Glucose (Glucose 40%) 15 - 30 gm PO UD PRN; Protocol PRN Reason: Hypoglycemia Protocol Stop: 03/31/18 02:27 Glucose (Dex4 Glucose) 4 - 8 tabs PO UD PRN; Protocol PRN Reason: Hypoglycemia Protocol Stop: 03/31/18 02:27 Insulin Aspart (Novolog Flexpen) 0 units SC ACHS [facility] Stop: 03/31/18 07:29 Last Admin: 03/08/18 09:10 Dose: 4 units Insulin Glargine (Lantus) 5 units SC BID [facility] Stop: 04/05/18 08:59 Last Admin: 03/08/18 09:14 Dose: 5 units Levetiracetam (Keppra) 500 mg PO BID [facility] Stop: 03/31/18 08:59 Last Admin: 03/08/18 09:13 Dose: 500 mg Lidocaine/Prilocaine ([place]mla 2.5%) 1 ea EXT PRN PRN PRN Reason: blood draw Stop: 03/31/18 02:02 Last Admin: 03/01/18 02:20 Dose: 1 ea Miscellaneous (Carbohydrates For Hypoglycemia) 15 - 30 gm PO UD PRN PRN Reason: Hypoglycemia Treatment Stop: 03/31/18 02:27 Last Admin: 03/01/18 07:56 Dose: 15 gm Naloxone HCl (Narcan) 0.4 mg IV Q5M PRN; Protocol PRN Reason: Oversedation/Resp Depression Stop: 03/15/18 05:00 Nitroglycerin (Nitrostat) 0.4 mg SL UD PRN PRN Reason: Chest Pain Stop: 03/31/18 02:25 Olanzapine (Zyprexa) 2.5 mg IM Q4H PRN PRN Reason: Anxiety/Agitation Stop: 03/31/18 04:37 Last Admin: 03/01/18 05:29 Dose: 2.5 mg Polyethylene Glycol (Miralax Powder Packet) 17 gm PO DAILY PRN PRN Reason: Constipation Stop: 03/31/18 08:59 Pravastatin Sodium (Pravachol) 40 mg PO DAILY [facility] Stop: 03/31/18 08:59 Last Admin: 03/08/18 09:12 Dose: 40 mg Fluticasone/Salmeterol (Advair Diskus 250/50) 1 puffs INH BID [facility] Stop: 03/31/18 08:59 Last Admin: 03/08/18 09:12 Dose: 1 puffs Senna/Docusate Sodium (Senokot S) 1 tab PO DAILY [facility] Stop: 03/31/18 08:59 Last Admin: 03/08/18 09:12 Dose: 1 tab Thiamine HCl (Vitamin B-1) 500 mg PO DAILY [facility] Stop: 03/31/18 08:59 Last Admin: 03/08/18 09:13 Dose: 500 mg
--- NOTE | 2018-03-09 11:49 | Discharge Summary ---
Date of Service March 09, 2018 Admission HPI Per Admitting Provider History obtained from patient, family, and records. Limited history obtained from patient secondary to marked hearing impairment. Medical history significant for CAD/PVD/CVA as per records, chronic respiratory failure 2 to COPD on supplemental O2. CYRIL as per records ( ? CPAP compliance), DM2 insulin requiring, chronic back pain secondary to postlaminectomy syndrome/ chronic neuropathy on chronic Dilaudid pain pump, hypertension, history of subdural hematoma as per records, seizure disorder, past hx DVT, pulmonary embolism ambulatory dysfunction, BPH, hearing loss, history of MRSA endocarditis status post Vancomycin treatment, Chronic anemia (baseline hemoglobin of 12), chronic thrombocytopenia, past tobacco abuse/alcohol abuse as per records. 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 Patient admitted at [facility] February 25, 2018 for left hip pain secondary to mechanical fall. X-ray showed nondisplaced, oblique fracture left greater trochanter. No operative intervention as per Cardiology. Last February 27, patient noted to have increasing oxygen requirements. CT angio showed chronic pleural changes lung bases, with small right pleural effusion, atelectasis. Peripheral pulmonary emboli right lower lobe. Patient started on weight-based Lovenox every 12 hours with plan to transition to Eliquis. LE venous Doppler ultrasound results pending as per discharge note. Lethargy noted yesterday. Improved mentation after IV Narcan administration. Patient transferred to [facility] for Dilaudid pain pump evaluation by Pain Management. On the ambulance and route to [facility] from [facility], patient had chest pain complaints prompting ambulance to bring patient back to [place] [facility] for further evaluation. Unremarkable chest pain workup at [place] [facility] as per ER provider. Patient arrived as a direct admit at telemetry. Currently denies unusual chest pain, SOB. MEDICAL HISTORY: As above. SURGICAL HISTORY: 1. Hernia repair. 2. Femoropopliteal bypass. 3. Mastoidectomy. 4. ORIF. 5. Hip surgery. 6. Spine surgery. 7. Hip replacement. FAMILY HISTORY: There is a family history of heart disease. PERSONAL SOCIAL HISTORY: Remote tobacco abuse. 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 Admission Exam Per Admitting Provider Vital Signs (Past 24 Hours): Last Vital Signs Temp 36.8 C 03/01/18 01:00 Pulse 71 03/01/18 01:00 Resp 20 03/01/18 01:00 BP 153/73 H 03/01/18 01:00 Pulse Ox 97 03/01/18 01:00 Physical Exam: GENERAL: uncomfortable, slightly agitated, hard of hearing, no respiratory distress SKIN: Multiple ecchymotic areas, pallor, warm HEENT: Pale palpebral conjunctivae, no ptosis, dry buccal mucosa, nasal cannula in place NECK : Supple, no tenderness CHEST : Decreased breath sounds, no tenderness HEART : RRR, systolic murmur ABDOMEN: Some distention, nontender EXTREMITIES : minimal LE swelling/tenderness, no other conspicuous deformities noted NEUROLOGIC : Disoriented, no facial asymmetry, hard of hearing, gait and stance not assessed. Principal Diagnosis Metabolic encephalopathy-resolved, UTI, fall with fracture of left greater trochanter, ambulatory dysfunction Discharge Exam Constitutional WD/WN, vitals as above + altered mental status and + frail appearing; no acute distress Eyes PERRL, conjunctivae normal, anicteric sclerae reactive pupils and + dilated pupils (4-5mm) ENMT Ears: + hearing impairment Neck trachea midline, no thyromegaly normal visual inspection and trachea midline Respiratory normal respiratory effort and + uses accessory muscles (Minimal) Auscultation: + diminished lung sounds (Bilaterally specially at the bases) Cardiovascular RRR, no murmur, no edema Rate/Rhythm: regular rate and regular rhythm Heart Sounds: normal S1, normal S2 and + murmur Vessels: normal peripheral pulses; no JVD Extremities: no edema Gastrointestinal (Abdomen) normal bowel sounds, soft, nontender, no hepatosplenomegaly Inspection/Auscultation: abdomen normal to inspection and normal bowel sounds; abdomen not distended Percussion/Palpation: abdomen soft; abdomen nontender Skin + turgor decreased, + skin tightening and + ecchymosis Neurologic moves all extremities and awake Speech / Cognition: + abnormal speech (garbled (baseline)) Psychiatric A+Ox3, euthymic affect Orientation: alert, oriented to person and oriented to place Eye Contact: good eye contact Affect: euthymic affect, + irritable affect and + angry affect Discharge Data Allergies Allergy/AdvReac Type Severity Reaction Status Date / Time Sulfa (Sulfonamide Allergy Intermediate Rash Verified 03/02/18 17:33 Antibiotics) sulfamethoxazole Allergy Intermediate Rash Verified 03/02/18 17:33 [From Bactrim] trimethoprim [From Bactrim] Allergy Intermediate Rash Verified 03/02/18 17:33 Cephalosporins Allergy Unknown UNKNOWN Verified 03/01/18 01:58 Consultations 03/01/18 02:27 Consult Case Management - Discharge Planning Routine 03/01/18 02:30 Consult Pain Management Routine 03/01/18 07:38 Consult Palliative Care Routine 03/01/18 08:45 Consult Pulmonology Routine 03/02/18 11:13 Consult Orthopedic Surgery Routine Ordered Studies 03/01/18 04:18 CT head/brain wo con Urgent 03/01/18 13:42 US venous doppler LE BI Routine Hospital Course (1) Encephalopathy: Likely metabolic encephalopathy in setting of baseline dementia, UTI Multi factorial:hypercapnia; narcosis, H/O dementia H/O CVA in the past as per POA CT head:Senescent changes as above with no hemorrhage, mass effect, or evidence of acute territorial ischemia by CT criteria. Mental status seemed to be back to baseline No more recurrence of syncopal Medically stable H/O Seizures: Continue Keppra No seizure activity DM II: A1C:7.2 Hold home PO meds Utilize ISS while hospitalized Hypertension: continue home meds monitor Chronic anemia chronic Thrombocytopenia Hb at baseline monitor CBC while on Lovenox Chronic Pain: h/o lumbosacral spine surgery Intrathecal Pump management per Pain management--Appreciate Input Past tobacco abuse/alcohol abuse as per records. DVT Px: On Lovenox Code Status: DNI/DNR Appreciate palliative care help Disposition: multimedia services manager consulted Plan to discharge to [facility] when accepted Family Contact: Patient's POA, Ms. Scott Suman: contact number [phone] (2) Fracture of greater trochanter of left femur: Patient worked input Conservative management Denies any pain (3) Ambulatory dysfunction: Will be transferred to [facility] Continue PT OT (4) Pulmonary embolism: Possible small Acute PE Past hx DVT as per records Recent confinement at [place] [facility] for left hip fracture not requiring operative intervention. Not a candidate for long-term anticoagulation given H/O multiple falls leading to fractures, H/O subdural hematoma--(Daughter -POA is agreed with management) venous doppler: no DVT --CTA from [facility]--Many artifacts --Continue oxygen support --No aggresive measures/surgeries per POA/Palliative Care --Appreciate Pulmnology Input --Continue Lovenox while hospitalized only --No plan to continue anticoagulation (Therapeutic lovenox dose) upon discharge --Lovenox will be discontinued on discharge as planned previously (5) Presence of intrathecal pump: Appreciate input from pain therapist Continue pain pump for now Pain has been under control (6) CYRIL (obstructive sleep apnea): Continue current oxygen CPAP/BiPAP-as needed (7) Goals of care, counseling/discussion: Palliative care consulted Appreciate input and recommendation Patient will be going to [facility] tomorrow (8) UTI (urinary tract infection): Urine culture:Proteus continue Aztreonam Day #6/7 [place] is changed Antibiotic will be discontinued tomorrow before discharge (9) Vascular dementia: Remains stable with occasional confusion Total Time Total Time Spent Total Time Spent (In Minutes): 40 minutes Total Time Includes: Examination of the Patient, Discharge Planning, Medication Reconciliation and Communication With Other Providers Discharge Plan Discharge Items Patient Disposition: Transfer Longterm Fac Reason For Visit: PE, RESP FAILURE Discharge Diagnosis: Metabolic encephalopathy-resolved, UTI, fall with fracture of left greater trochanter, ambulatory dysfunction Condition: Fair Discharge Goals: Decrease discomfort and Improve function Activity: Resume your previous activity Activity Comment: Needs assistance in ADL S. Continue physical therapy Non-emergency contact: Primary Care Provider Call non-emergency contact if: you have any medication questions and your symptoms worsen Follow-up/Referrals: Liliam Whiting [Primary Care Provider] - ([facility] care provider) Diet: Carb Consistent or DM2 Addtl Provider Instructions: Allow mobilization in and out of bed as tolerated. May weightbear as tolerated and transferring. Prescriptions: Continue thiamine HCl (vitamin B1) 500 mg tablet 500 mg PO DAILY RF: 0 fluticasone-salmeterol [Advair Diskus] 250-50 mcg/dose blister with device 1 inha INH BID RF: 0 albuterol sulfate 2.5 mg /3 mL (0.083 %) solution for nebulization 2.5 mg INH Q4H PRN (Reason: Shortness Of Breath) RF: 0 polyethylene glycol 3350 [Miralax] 17 gram powder in packet 17 gm PO DAILY RF: 0 pravastatin 40 mg tablet 40 mg PO DAILY RF: 0 levetiracetam [Keppra] 500 mg tablet 500 mg PO BID RF: 0 sennosides-docusate sodium [Senna Plus] 8.6-50 mg tablet 2 tab PO HS PRN (Reason: Constipation) RF: 0 aspirin 81 mg tablet,delayed release (DR/EC) 81 mg PO DAILY RF: 0 triamcinolone acetonide 0.1 % ointment 1 appln TOP BID MDD do not use longer than 14 days RF: 0 furosemide [Lasix] 20 mg tablet 20 mg PO DAILY RF: 0 finasteride [Proscar] 5 mg tablet 5 mg PO DAILY RF: 0 tiotropium bromide [Spiriva with HandiHaler] 18 mcg capsule, w/inhalation device 1 cap INH DAILY RF: 0 hydrochlorothiazide 12.5 mg tablet 12.5 mg PO DAILY RF: 0 magnesium oxide 400 mg capsule 400 mg PO DAILY RF: 0 albuterol sulfate [ProAir RespiClick] 90 mcg/actuation aerosol powdr breath activated 2 puffs INH Q4H PRN (Reason: Shortness Of Breath) RF: 0 metformin 1,000 mg tablet 1,000 mg PO BIDM RF: 0 acetaminophen 325 mg Tablet 650 mg PO Q4 PRN (Reason: Fever Or Pain) RF: 0 ketoconazole 2 % Cream 1 applic TOPICAL BID RF: 0 vit C,P-Ml-cpaap-lutein-zeaxan [PreserVision AREDS-2] 567-126-66-1 mg-unit-mg- mg Capsule 1 tab PO DAILY RF: 0 Changed insulin detemir U-100 [Levemir U-100 Insulin] 100 unit/mL solution 20 units SQ QPM Qty: 0 RF: 0 Discharge Orders: Discharge Order (Routine); Ordered 03/08/18 Ordered By: Papo Mendez Skilled Items Patient informed of condition?: Yes DNR: Yes Discharge Level of Care: Skilled Communicable Disease: No Discharge Prognosis: Stable Admission Data Admit Date/Time: 03/01/18 01:01 Attending Provider: Papo Mendez Admit Provider: Eduardo Funez Primary Care Provider: Liliam Whiting Other Providers: Tez Silva ; Lissa Gusman ; Eduardo Laboy ; Samuel Roman ; Thee Vazquez Service: Telemetry Other Interventions: Discharge Summary Assessment (RN) Last Done: 03/08/18 11:54 DC Date/Time DO NOT enter until pt leaves facility: 03/08/18 12:51
--- NOTE | 2018-03-16 06:17 | Coding Query ---
CODING QUERY To promote full compliance with coding requirements relating to patient care, provider participation is requested in all cases of technology teacher uncertainty. Please assist us with the question(s) below: Coding Question(s): Please clarify below, in your clinical opinion, regarding documentation of Fall and Ambulatory Dysfunction. ( ) The patient has recently fallen and the reason for the fall was investigated during this admission with treatment of evaluation by PT and OT evaluations and discharge to [facility] to continue PT and OT. The investigation of the reason for the fall was one of the more significant reasons for this admission. ( + ) Investigation for the reason for the fall was not one of the more significant reasons for admission ( ) There was no investigation for the reason for the fall Physician's Response(s): Thank you Bessy Mccall Principal Diagnosis: "that condition established after study, to be chiefly responsible for occasioning the admission of the patient to the hospital for care." Co-Existing Principal Diagnosis: "when two or more diagnoses equally meet the criteria for principal diagnosis as determined by the circumstances of admission , diagnostic work up, and/or therapy provided, and the Alphabetic Index, Tabular List, or another coding guideline does not provide sequencing direction , any one of the diagnoses may be sequenced first." "When the physician has documented what appears to be a current diagnosis in the body of the record, but has not included the diagnosis in the final diagnostic statement, the physician should be asked whether the diagnosis should be added." (Source Coding [facility] 2 QTR90. p3-4) GEORGE
== END 2018-03-08 12:51 | DRG 175 ==
LOC: 2E 03-01 01:01 → SUATTDRO 03-01 01:01

== ENCOUNTER 2018-05-22 10:00 | Inpatient (IN) ==
[2018-05-22] MEDS ORDERED: methylPREDNISolone 125 MG/2 ML VIAL IV STA (10:24)
[2018-05-22] MEDS ORDERED: ALBUT/IPRATROP 3MG/0.5MG NEB 3 ML VIAL NEB ONE (10:24)
[2018-05-22 10:45] LABS: Base Excess VBG 10.2 mEq/L; Oxygen Saturation VBG 84.3 %; pH VBG 7.22 (7.36-7.41)
--- NOTE | 2018-05-22 10:56 | XRay Report ---
XR chest 1V portable CLINICAL HISTORY: Respiratory difficulty COMPARISON STUDY: 03/19/2018 FINDINGS: The heart is enlarged. There are small pleural effusions right greater left. There are basi lar airspace opacities likely representing compressive atelectasis although an associated infectious/ inflammatory process could appear similar. There is elevation of the interstitium consistent with mil d pulmonary vascular congestion/fluid overload. Underlying emphysema is suspected.[ IMPRESSION: 1. Cardiomegaly and radiographic evidence of mild pulmonary vascular congestion 2. Bilateral pleural effusions with associated basilar airspace opacities likely atelectatic 3. Suspected underlying emphysema Electronically signed by: Edgardo Nina M.D. 05/22/2018 10:54 AM
[2018-05-22 11:00] LABS: BUN Creatinine Ratio 38.9 (10-20); Calcium 8.3 mg/dl (8.5-10.1); Creatinine Clr Calc Pharmacy 57.5 ml/min; Est GFR (African American) 85.3; Est GFR (Non-African American) 73.6; Potassium 5.1 mmol/L (3.5-5.1)
[2018-05-22 11:24] LABS: Troponin I 0.249 ng/ml (0-0.045)
[2018-05-22] MEDS ORDERED: FUROSEMIDE 40 MG/4 ML VIAL IV STA (11:29)
[2018-05-22 11:36] LABS: Hematocrit (blood only) 45.8 % (42-52); Hemoglobin 12.9 g/dL (14.0-18.0); Mean Corpuscular Hgb Conc 28.2 g/dL (32-36); Mean Corpuscular Volume 88.9 fL (80-100); Mean Platelet Volume 11.3 fL (7.4-10.4); Nucleated RBC # (auto) 0.04 K/uL (0-0); Nucleated RBC % (auto) 0.7 %; Platelet Count 139 K/uL (130-400); RDW Coefficient of Variation 16.5 % (11.5-14.5); RDW Standard Deviation 54.1 fL (36.4-46.3); Red Blood Count 5.15 M/uL (4.7-6.1); White Blood Count 5.64 K/uL (4.8-10.8)
[2018-05-22 11:39] LABS: Influenza A virus by PCR Neg for Influ A (Neg); Influenza B virus by PCR Neg for Influ B (Neg)
[2018-05-22 11:49] LABS: Basophilic Stippling Occasional; Basophils # (auto) 0.02 K/uL (0-0.2); Basophils % (auto) 0.4 %; Immature Granulocytes # (auto) 0.09 K/uL (0.00-0.02); Immature Granulocytes % (auto) 1.6 %; Lymphocytes # (auto) 0.37 K/uL (1.2-3.4); Lymphocytes % (auto) 6.6 %; Monocytes # (auto) 0.35 K/uL (0.11-0.59); Monocytes % (auto) 6.2 %; Neutrophils # (auto) 4.81 K/uL (1.4-6.5); Neutrophils % (auto) 85.2 %
[2018-05-22 11:56] LABS: Base Excess VBG 9.6 mEq/L; Oxygen Saturation VBG 92.9 %; pH VBG 7.22 (7.36-7.41)
--- NOTE | 2018-05-22 13:57 | History & Physical Report ---
Date of Service May 22, 2018 Assessment & Plan (1) Respiratory failure, acute and chronic: (2) Respiratory acidosis: Pt with hx chronic hypercapnic hypoxic respiratory failure on 4L oxygen NC. Patient presented to ER from [facility] with worsening hypoxia and lethargy. In ER patient afebrile, P: 103, R: 24, BP 142/71, 55% on room air up to 96% on BiPAP. Was given albuterol neb, Solu-Medrol 125 mg IV, Lasix 40 g IV. WBC: 5, Lactate: 1.8, negative influenza swab. ABG: pH: 7.2, pCO2: 102, pO2:72, HCO3: 43 CXR: Cardiomegaly and radiographic evidence of mild pulmonary vascular congestion, Bilateral pleural effusions with associated basilar airspace opacities likely atelectatic, Suspected underlying emphysema Probable multifactorial-COPD exacerbation, recent RSV infection, CHF R/O PE - pending CTA chest -pt DNI per family and prior records -tele for close monitoring -continue bipap -duonebs -continue advair, hold spiriva as on duoneb -npo while on bipap (3) CHF exacerbation: History echo 02/2018: EF: 60-65%, grade 1 diastolic dysfunction, moderate aortic valve sclerosis without significant stenosis, moderate mitral regurgitation, aneurysmal intra-arterial septum with small [id number] shunt Today BNP: 20,032 In ER given lasix 40mg IV -monitor I&O's -monitor fluid status to determine further diuretics -hold outpatient oral lasix and HCTZ at this time -monitor electrolytes (4) Encephalopathy: Hx dementia. Reported increased lethargy past couple of days and today unresponsiveness CT Head: no acute changes Pt with hypercapnia, hyopxia -monitor (5) Elevated troponin: Troponin: 0.24 -trend troponin -repeat EKG in am (6) History of pulmonary embolism: H/O PE 02/2018. IVC filter reported to be denied at that time. Pt was not discharged on anticoagulants secondary to fall risk, hx subdural hematoma -pending CTA chest to R/O PE (7) Diabetes mellitus, type II: A1c: 7.2 on 02/2018 -hold metformin -Novolog Lantus sliding scale per protocol -Monitor BSGs (8) Chronic anemia: Hgb: 12.9. 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 See addendum History of Present Illness Chief Complaint: Respiratory distress Primary Care Provider: Oscar Aguirre Pt is 83 y/o M with PMH chronic hypercapnic hypoxic respiratory failure on 4L oxygen NC (goal oxygen sats 88-92%), COPD, CYRIL(reported noncompliance with CPAP) , DM II, chronic back pain on chronic Dilaudid pain pump, h/o subdural hematoma , seizure disorder, HTN, h/o DVT/PE, chronic anemia, BPH, dementia presented to ER from [facility] with complaint of hypoxia and altered mental status. Reported patient oxygen saturations 55% on room air and EMS placed patient on CPAP and gave DuoNeb in route. Patient with history recent RSV on 05/05/18 with increased respiratory distress and dyspnea with reported oxygen saturations mid 80s on 4 L oxygen. Patient was treated with steroids with reported improvement. Patient's daughter reports noticed increased shortness of breath and increased altered mental status and lethargy over the past couple of days. She states she was in to see patient yesterday and patient was lethargic however was alert and recognized her , did not recognize other disorders. She states has a chronic productive cough , does not think worsening. She reports was contacted last night and told patient oxygen sats were low. She also noticed increased bilateral hand swelling today. Daughter reports that alf staff reported pt with decreased oral intake past day. Hx hospitalization 02/25/18 at outside facility for L greater trochanter fracture and AMS and was transferred to [facility] 03/01/18- with dx encephalopathy thought secondary to proteus UTI and mental status had returned to baseline. Had acute PE was on lovenox in patient, not discharged on anticoagulation secondary to recurrent falls, h/o subdural hematoma. Hx hospitalization 03/19/18-03/22/18 Follows with [facility] pain management. Has dilaudid pain pump 0.6mg/day. Had pain pump refilled on 03/27/18, is to have refilled in May 2018. Today in ER patient afebrile, P: 103, R: 24, BP 142/71, 55% on room air up to 96 % on BiPAP. Was given albuterol neb, Solu-Medrol 125 mg IV, Lasix 40 g IV. Allergies Allergy/AdvReac Type Severity Reaction Status Date / Time Sulfa (Sulfonamide Allergy Intermediate Rash Verified 05/22/18 10:25 Antibiotics) sulfamethoxazole Allergy Intermediate Rash Verified 05/22/18 10:25 [From Bactrim] trimethoprim [From Bactrim] Allergy Intermediate Rash Verified 05/22/18 10:25 Cephalosporins Allergy Unknown UNKNOWN Verified 05/22/18 10:25 Home Medications Home Medications Medication Instructions Recorded Confirmed Type albuterol sulfate 2.5 mg/3 mL 2.5 mg INH Q4H PRN 12/05/17 05/22/18 History (0.083 %) solution for nebulization aspirin 81 mg tablet,delayed 81 mg PO QAM 12/05/17 05/22/18 History release finasteride 5 mg tablet 5 mg PO QAM 12/05/17 05/22/18 History furosemide 20 mg tablet 20 mg PO QAM 12/05/17 05/22/18 History hydrochlorothiazide 12.5 mg tablet 12.5 mg PO QAM 12/05/17 05/22/18 History levetiracetam 500 mg tablet 500 mg PO BID 12/05/17 05/22/18 History magnesium oxide 400 mg capsule 400 mg PO QAM cap 12/05/17 05/22/18 History pravastatin 40 mg tablet 40 mg PO HS 12/05/17 05/22/18 History sennosides 8.6 mg-docusate sodium 2 tab PO HS tab 12/05/17 05/22/18 History 50 mg tablet tiotropium bromide 18 mcg capsule 1 cap INH QAM 12/05/17 05/22/18 History with inhalation device metformin 1,000 mg PO BIDM 03/01/18 05/22/18 History ipratropium-albuterol 3 ml INHALATION Q4H PRN 03/19/18 05/22/18 History ipratropium-albuterol 3 ml INHALATION QID 03/19/18 05/22/18 History magnesium hydroxide [Milk of 30 ml PO DAILY PRN 03/19/18 05/22/18 History Magnesia] polyethylene glycol 3350 17 g PO QAM 03/19/18 05/22/18 History acetaminophen [Tylenol Extra 500 mg PO TID 05/22/18 05/22/18 History Strength] fluticasone-salmeterol 1 puff INHALATION Q12H 05/22/18 05/22/18 History gabapentin 100 mg PO TID 05/22/18 05/22/18 History insulin aspart U-100 [Novolog 2 unit SUBCUT QDB 05/22/18 05/22/18 History U-100 Insulin aspart] insulin aspart U-100 [Novolog 6 unit SUBCUT QDL 05/22/18 05/22/18 History U-100 Insulin aspart] insulin detemir U-100 [Levemir 10 units SQ HS 05/22/18 05/22/18 History U-100 Insulin] menthol [Icy Hot No Mess] 1 applic TOPICAL TID 05/22/18 05/22/18 History thiamine HCl (vitamin B1) [Vitamin 100 mg PO DAILY 05/22/18 05/22/18 History B-1] vit C,D-Ix-icoxe-lutein-zeaxan 1 tab PO QAM 05/22/18 05/22/18 History [PreserVision AREDS-2] Past Med/Surg History Medical History Chronic back pain (Chronic) Dementia (Chronic) Chronic anemia (Chronic) Diabetes mellitus, type II (Chronic) History of pulmonary embolism (Chronic) Respiratory failure, acute and chronic Pneumonia (Resolved) UTI (urinary tract infection) (Resolved) Ambulatory dysfunction (Chronic) Fracture of greater trochanter of left femur (Resolved) Encephalopathy Presence of intrathecal pump (Chronic) Diabetes (Chronic) CYRIL (obstructive sleep apnea) (Chronic) PVD (peripheral vascular disease) (Chronic) HTN (hypertension) (Chronic) H/O: CVA (cerebrovascular accident) (Chronic) Epilepsy (Chronic) Vascular dementia (Chronic) S/P ORIF (open reduction internal fixation) fracture (Chronic) "Trochanteric Fx " CO2 retention (Chronic) Surgical History History of lumbosacral spine surgery (Chronic) History of open reduction and internal fixation (ORIF) procedure (Chronic) S/P femoral-popliteal bypass surgery (Chronic) Previous back surgery (Chronic) Status post hip replacement (Chronic) "Right" H/O esophagogastroduodenoscopy (Chronic) Family History Other Heart disease Social History Current Living Situation: Intermediate Current Living Situation Comment: living at the [facility] current occupational status: retired 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 Feels Safe at Home: Yes Smoking Status: Former smoker Tobacco Type: cigarettes Second Hand Exposure: No Hx Alcohol Use: No Hx Substance Use: No Beliefs That Will Affect Care: None Preferred Language: Setswana Review of Systems Unobtainable due to reduced consciousness Physical Exam 2 Vital Signs (Past 24 Hours): Last Vital Signs Temp 36.8 C 05/22/18 10:10 Pulse 98 H 05/22/18 11:46 Resp 18 05/22/18 11:46 BP 119/60 05/22/18 11:46 Pulse Ox 96 05/22/18 11:46 Physical Exam: General: chronic ill appearing elderly male, obtunded, on bipap Head: normocephalic, atraumatic Eyes: PERRL, conjunctiva non-injected, anicteric ENT: normal inspection external ears, nose, mucous membranes moist Neck: supple, trachea midline Lungs: On bipap, diminished, rhonchi CV: RRR, mild pretibial edema Abd: normal BS, soft, no apparent tenderness to palpation Ext: venous stasis changes bilateral lower legs, bilateral hands with edema Neuro: does not open eyes or follow commands Skin: warm, dry Results & Data Laboratory Results Short CBC 05/22/18 Range/Units 10:25 WBC 5.64 (4.8-10.8) K/uL Hgb 12.9 L (14.0-18.0) g/dL Hct 45.8 (42-52) % Plt Count 139 (130-400) K/uL BMP 05/22/18 10:25 Sodium 139 Potassium 5.1 Chloride 98 Carbon Dioxide 38 H BUN 37 H Creatinine 0.94 Glucose 155 H Calcium 8.3 L Cardiac Enzymes 05/22/18 Range/Units 10:25 Troponin I 0.249 H* (0-0.045) ng/ml Diagnostic Findings CXR: IMPRESSION: 1. Cardiomegaly and radiographic evidence of mild pulmonary vascular congestion 2. Bilateral pleural effusions with associated basilar airspace opacities likely atelectatic 3. Suspected underlying emphysema CT HEAD: IMPRESSION: Chronic changes as above without acute intracranial abnormality. Supervising Physician Co-Signing Physician Notes HISTORY: Record reviewed. Patient interviewed and examined. Care coordinated with Dia Barron PA-C. Please refer to her documentation for patient's history. Briefly, 83 YO male with history of COPD, sleep apnea, chronic hypoxic and hypercapnic respiratory failure on chronic O2, pulmonary embolism, hypertension , diabetes, dementia, and other problems. Recent RSV infection, treated with course of steroids. Sent to ED today for evaluation of increasing lethargy. Patient unable to provide any history. O2 saturations at the alf reportedly in the 40s and 50s. No reported fever. EXAM: General-elderly male, appears to be chronically and acutely ill ENT-wearing BiPAP Lungs- few scattered rhonchi, diffuse mild wheezing Cardiovascular- RRR; no murmur or gallop appreciated; + JVD; trace pretibial edema Abdomen- + bowel sounds, soft, nontender Extremities- no calf tenderness Neuro- obtunded Skin- chronic venous stasis changes of lower extremities; warm & dry DATA: Hemoglobin 12.9, white count 5640, platelet count 139,000. Sodium 139, potassium 5.1, chloride 98, CO2 38, BUN 37, creatinine 0.94, random glucose 155. Serum troponin I 0.249. ProBNP 20,032. ABG on BiPAP/100% FiO2 showed a PO2 of 72, PCO2 102, bicarbonate 43, pH 7.24. Influenza PCR screen negative. Other lab studies as noted. Chest x-ray reviewed by the undersigned and formally interpreted by Radiology: cardiomegaly, pulmonary vascular congestion, small pleural effusions CT of head showed age-related atrophy and small vessel ischemic changes, no apparent acute event. CTA of chest negative for pulmonary embolism. Dilated ascending thoracic aorta without dissection, pulmonary edema, pulmonary hypertension, bilateral pleural effusions, small nodular opacities, prior granulomatous disease were noted. EKG performed at 1034 reviewed and demonstrated sinus rhythm at 99/ minute, PACs , incomplete right bundle branch block, poor R wave progression, inverted T waves inferiorly. ASSESSMENT AND PLAN: 83-year-old male with history of COPD, chronic respiratory failure, pulmonary embolism. Brought to ED with increasing confusion, most likely secondary to metabolic encephalopathy from acute on chronic hypoxic and hypercapnic respiratory failure. Requiring BiPAP for ventilatory support. No intubation per advanced directives. Titrate FiO2 to maintain O2 saturations in the high 80s and low 90s. No evidence of pulmonary embolism per CTA. No apparent pulmonary infection. Radiographic findings on chest x-ray and CT as well as elevated pro-BNP indicate acute on chronic left ventricular diastolic congestive heart failure / pulmonary edema. Patient received IV furosemide in the ED; repeat dosing as needed. Serum troponin 0 0.249. Elevated troponin most likely secondary to demand ischemia. Follow troponin trends. Please refer to BEATRICE Dunn's documentation for discussion of other issues. Daughter given update in ED. ADDENDUM: MRSA screen positive. Contact isolation. _ (1) CHF exacerbation Heart failure type: unspecified Qualified Code(s): I50.9 - Heart failure, unspecified
[2018-05-22 14:04] LABS: HCO3 ABG 43 mmol/L (19-24); Oxygen Saturation ABG 92.3 % (90-95); PCO2 ABG 102 mmHg (35-46); PO2 ABG 72 mm/Hg (80-95); pH ABG 7.24 (7.35-7.45)
[2018-05-22 14:05] LABS: Allen Test Pos (Pos)
[2018-05-22] MEDS ORDERED: OPTIRAY 320 125ml IV PRN (14:23)
--- NOTE | 2018-05-22 14:27 | CT Scan Report ---
CT head/brain wo con CLINICAL HISTORY: 83 years-old Male with altered mental status. Acutely altered mental status TECHNIQUE: Multiple axial CT images of the head were obtained without contrast. A dose lowering tech nique was utilized adhering to the principles of ALARA. CT DOSE: 537.48 mGy.cm COMPARISON: CT head 03/19/2018. FINDINGS: No acute intracranial hemorrhage, midline shift, intracranial mass, hydrocephalus, territorial ischem ia or abnormal extra-axial collection. Age-related involutional changes with ex vacuo ventriculomegal y. Scattered white matter hypodensities compatible with chronic microvascular ischemic changes. Cereb ral vascular calcifications are also noted. Encephalomalacia from remote right parietal infarct, unch anged. Multiple remote lacunar infarctions of the basal ganglia. The calvarium is intact. Bilateral mastoid effusions with fluid also noted about the right middle ea r cavity. Paranasal sinuses are generally clear. The soft tissues and orbits appear unremarkable. Not e is made of disconjugate gaze. IMPRESSION: Chronic changes as above without acute intracranial abnormality. The above report was generated using voice recognition software. It may contain grammatical, syntax o r spelling errors. Electronically signed by: Ronny Henderson M.D. 05/22/2018 2:25 PM
--- NOTE | 2018-05-22 14:41 | CT Scan Report ---
CT angio chest PE protocol CT DOSE: 549.61 mGy.cm HISTORY: 83 years-old Male with PE. Acute shortness of breath with emphysema TECHNIQUE: Multiple CTA images of the chest were obtained after the intravenous administration of 120 ml Optiray 320. Coronal and sagittal MIPS were obtained from the axial data set and were submitted for review. All measurements were obtained according to NASCET criteria. A dose lowering technique w as utilized adhering to the principles of ALARA. COMPARISON: Chest radiograph of same day, CTA chest 03/19/2018. FINDINGS: CTA: Moderate to severe multichamber cardiac enlargement without pericardial effusion. Aortic and mitral a ir with coronary arterial calcifications. Fusiform dilation about the ascending thoracic aorta, 4.4 x 4.3 cm, unchanged. Additionally, there is dilation of the main pulmonary artery, 4.0 cm transversely . Extensive calcification of the thoracic aorta and proximal great vessels. The aorta is suboptimally opacified secondary to contrast bolus timing. No thoracic aortic dissection. The pulmonary arterial tree is opacified to the level the proximal subsegmental branches and demonstrates no focal filling d efects to suggest pulmonary thromboembolic disease. The distal segmental and subsegmental branches ar e suboptimally visualized. . CT CHEST: No dominant thyroid nodule identified. Calcified paratracheal, subcarinal and hilar lymph nodes jocelin tible with prior granulomatous disease. Small bilateral pleural effusions. Severe emphysema with inserter operator collin interstitial coarsening. Bibasilar bronchial wall thickening is noted with associated tracheobron chial secretions. Scattered calcified granulomata are noted. Evaluation of the lung parenchyma is del rio ited secondary to respiratory motion. 10 x 6 mm nodular opacity of the right upper lobe on image 199 series 4 with additional scattered smaller solid nodule also seen about the right upper lobe (please see the bookmarks). Intralobular septal thickening with bibasilar groundglass and consolidative opaci ties, right greater than left. There are scattered subcentimeter nodular consolidative densities abou t the left lung base measuring up to 9 mm. No acute process of the imaged upper abdomen. Mild thickening of the left adrenal gland. Moderate gen eralized body wall edema. Partially imaged spinal stimulator lead overlies the posterior aspect of th e midthoracic spine. Degenerative changes of the shoulders and spine. Unchanged compression deformity at T9. Demineralized appearance of the bones. IMPRESSION: 1. No evidence of pulmonary thromboembolic disease. 2. Cardiomegaly with unchanged fusiform dilation about the ascending thoracic aorta, 4.3 x 4.4 cm. No associated dissection. 3. Pulmonary edema with suggestion of pulmonary arterial hypertension. 4. Bilateral pleural effusions with bibasilar groundglass and consolidative opacities, right greater than left suggestive of atelectasis and/or pneumonia. 5. Subcentimeter nodular opacities of the left lower and right upper lobes suspicious for infectious or inflammatory pneumonitis. Follow-up imaging to document resolution recommended. 6. Prior granulomatous disease. The above report was generated using voice recognition software. It may contain grammatical, syntax o r spelling errors. Electronically signed by: Ronny Henderson M.D. 05/22/2018 2:40 PM
[2018-05-22] MEDS ORDERED: GLUCAGON FOR INJ 1 MG VIAL SQ PRN (16:39)
[2018-05-22] MEDS ORDERED: POLYETHYLENE (MIRALAX) 17 GM PACK PO PRN (16:39)
[2018-05-22] MEDS ORDERED: GLUCOSE 10 TABS/TUBE PO PRN (16:39)
[2018-05-22] MEDS ORDERED: ACETAMINOPHEN 325 MG TAB PO PRN (16:39)
[2018-05-22] MEDS ORDERED: CARBOHYDRATES FOR HYPOGLYCEMIA PO PRN (16:39)
[2018-05-22] MEDS ORDERED: GLUCOSE 40% GEL 15 GM TUBE PO PRN (16:39)
[2018-05-22] MEDS ORDERED: DEXTROSE 50% 50 ML SYRINGE IV PRN (16:39)
[2018-05-22] MEDS ORDERED: INSULIN ASPART 100 UNITS/ML 3 ML PEN SC SCH (16:39)
[2018-05-22] MEDS ORDERED: ALBUT/IPRATROP 3MG/0.5MG NEB 3 ML VIAL NEB PRN (17:08)
--- NOTE | 2018-05-22 18:18 | Emergency Department Note ---
Entered by Farzana Arshad acting as a scribe for Nate Porter History of Present Illness General Chief complaint: Respiratory Problems Time Seen by Provider: 05/22/18 10:21 Source: other (nursing staff) Limitations: altered mental status History of Present Illness Onset (ago): day(s) (this morning) Location: chest Severity: severe (55%-62% O2 saturations) Pain Consistency: + other (episode) Quality: + other (respiratory distress) Associated symptoms: + other (altered) The patient is an 83 year old male who presents to the Emergency Room with complaints of an episode of respiratory distress starting this morning. Per nursing staff, the patient is coming from [facility] and was found to be hypoxic this morning at 55% on room air. They state that he was slumped in a chair and unresponsive to everything, but a sternal rub. They report that he was altered when he came to. Nursing staff states that the patient was altered enough that he was ripping his C-PAP off and ripping his IV out. They note that upon arrival he was 62% on room air and has not spoken or opened his eyes. Past records showed that the patient is a DNR and DNI. HPI and ROS are limited secondary to mental status. Home Medications Home Medications Medication Instructions Recorded Confirmed Type albuterol sulfate 2.5 mg/3 mL 2.5 mg INH Q4H PRN 12/05/17 05/22/18 History (0.083 %) solution for nebulization aspirin 81 mg tablet,delayed 81 mg PO QAM 12/05/17 05/22/18 History release finasteride 5 mg tablet 5 mg PO QAM 12/05/17 05/22/18 History furosemide 20 mg tablet 20 mg PO QAM 12/05/17 05/22/18 History hydrochlorothiazide 12.5 mg tablet 12.5 mg PO QAM 12/05/17 05/22/18 History levetiracetam 500 mg tablet 500 mg PO BID 12/05/17 05/22/18 History magnesium oxide 400 mg capsule 400 mg PO QAM cap 12/05/17 05/22/18 History pravastatin 40 mg tablet 40 mg PO HS 12/05/17 05/22/18 History sennosides 8.6 mg-docusate sodium 2 tab PO HS tab 12/05/17 05/22/18 History 50 mg tablet tiotropium bromide 18 mcg capsule 1 cap INH QAM 12/05/17 05/22/18 History with inhalation device metformin 1,000 mg PO BIDM 03/01/18 05/22/18 History ipratropium-albuterol 3 ml INHALATION Q4H PRN 03/19/18 05/22/18 History ipratropium-albuterol 3 ml INHALATION QID 03/19/18 05/22/18 History magnesium hydroxide [Milk of 30 ml PO DAILY PRN 03/19/18 05/22/18 History Magnesia] polyethylene glycol 3350 17 g PO QAM 03/19/18 05/22/18 History acetaminophen [Tylenol Extra 500 mg PO TID 05/22/18 05/22/18 History Strength] fluticasone-salmeterol 1 puff INHALATION Q12H 05/22/18 05/22/18 History gabapentin 100 mg PO TID 05/22/18 05/22/18 History insulin aspart U-100 [Novolog 2 unit SUBCUT QDB 05/22/18 05/22/18 History U-100 Insulin aspart] insulin aspart U-100 [Novolog 6 unit SUBCUT QDL 05/22/18 05/22/18 History U-100 Insulin aspart] insulin detemir U-100 [Levemir 10 units SQ HS 05/22/18 05/22/18 History U-100 Insulin] menthol [Icy Hot No Mess] 1 applic TOPICAL TID 05/22/18 05/22/18 History thiamine HCl (vitamin B1) [Vitamin 100 mg PO DAILY 05/22/18 05/22/18 History B-1] vit C,M-Tg-qjooz-lutein-zeaxan 1 tab PO QAM 05/22/18 05/22/18 History [PreserVision AREDS-2] Allergies Allergy/AdvReac Type Severity Reaction Status Date / Time Sulfa (Sulfonamide Allergy Intermediate Rash Verified 05/22/18 10:25 Antibiotics) sulfamethoxazole Allergy Intermediate Rash Verified 05/22/18 10:25 [From Bactrim] trimethoprim [From Bactrim] Allergy Intermediate Rash Verified 05/22/18 10:25 Cephalosporins Allergy Unknown UNKNOWN Verified 05/22/18 10:25 Past Med/Surg History Medical History Chronic back pain (Chronic) Dementia (Chronic) Chronic anemia (Chronic) Diabetes mellitus, type II (Chronic) History of pulmonary embolism (Chronic) Respiratory failure, acute and chronic Pneumonia (Resolved) UTI (urinary tract infection) (Resolved) Ambulatory dysfunction (Chronic) Fracture of greater trochanter of left femur (Resolved) Encephalopathy Presence of intrathecal pump (Chronic) Diabetes (Chronic) CYRIL (obstructive sleep apnea) (Chronic) PVD (peripheral vascular disease) (Chronic) HTN (hypertension) (Chronic) H/O: CVA (cerebrovascular accident) (Chronic) Epilepsy (Chronic) Vascular dementia (Chronic) S/P ORIF (open reduction internal fixation) fracture (Chronic) "Trochanteric Fx " CO2 retention (Chronic) Surgical History History of lumbosacral spine surgery (Chronic) History of open reduction and internal fixation (ORIF) procedure (Chronic) S/P femoral-popliteal bypass surgery (Chronic) Previous back surgery (Chronic) Status post hip replacement (Chronic) "Right" H/O esophagogastroduodenoscopy (Chronic) Family History Other Heart disease Social History [facility] Situation: [facility] Current Living Situation Comment: living at the 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 and A total of 10 systems reviewed and were otherwise negative Physical Exam Vital Signs Vital Signs - 24 hr 05/22/18 10:10 05/22/18 10:16 05/22/18 10:40 Temperature 36.8 C Temperature Source Oral Sepsis Recent Fever Within 48 Hours No Sepsis New/Unexplained Change in Mental Status No Sepsis Action Taken by Nursing No Action Required Pulse Rate 98 H Pulse Rate [Left Finger] 103 H Respiratory Rate 24 22 Respiratory Effort / Characteristics Non-Labored Spontaneous Spontaneous Respiratory Depth Normal Normal Respiratory Pattern Regular Regular Blood Pressure [Left Arm] 142/71 H Blood Pressure Mean [Left Arm] 94 Blood Pressure Position [Left Arm] Lying Pulse Oximetry 90 94 92 Oxygen Delivery Method CPAP CPAP Fraction of Inspired Oxygen 100 SaO2/FiO2 Ratio 05/22/18 10:45 05/22/18 11:46 05/22/18 14:33 Temperature Temperature Source Sepsis Recent Fever Within 48 Hours Sepsis New/Unexplained Change in Mental Status Sepsis Action Taken by Nursing Pulse Rate Pulse Rate [Left Finger] 101 H 98 H 98 H Respiratory Rate 19 18 18 Respiratory Effort / Characteristics Spontaneous Non-Labored Spontaneous Non-Labored Spontaneous Respiratory Depth Normal Normal Respiratory Pattern Regular Regular Blood Pressure [Left Arm] 119/60 144/70 H Blood Pressure Mean [Left Arm] 79 94 Blood Pressure Position [Left Arm] Lying Lying Pulse Oximetry 93 96 93 Oxygen Delivery Method BiPAP CPAP CPAP Fraction of Inspired Oxygen 100 SaO2/FiO2 Ratio 05/22/18 16:53 05/22/18 17:55 Temperature 36.4 C L Temperature Source Oral Sepsis Recent Fever Within 48 Hours Sepsis New/Unexplained Change in Mental Status Sepsis Action Taken by Nursing Pulse Rate Pulse Rate [Left Finger] 90 Respiratory Rate 24 Respiratory Effort / Characteristics Spontaneous SOB on Exertion Respiratory Depth Normal Respiratory Pattern Regular Blood Pressure [Left Arm] Blood Pressure Mean [Left Arm] Blood Pressure Position [Left Arm] Pulse Oximetry 98 Oxygen Delivery Method BiPAP BiPAP Fraction of Inspired Oxygen 100 100 SaO2/FiO2 Ratio 98 Physical Exam GENERAL: Patient appears distressed. NECK: Neck supple. No JVD present. CV: Tachycardic rate, regular rhythm, normal heart sounds and intact distal pulses. There is no peripheral edema. Palpable radial pulses bue. PULM/CHEST: Diminished breath sounds bilaterally. Respiratory distress. No stridor. He has no wheezes. He has no rales. ABD: The abdomen is soft. Course 1022: Past medical records reviewed. The patient was evaluated in room B9, and a complete history and physical examination were performed. EMR reviewed. Patient has a long history of respiratory problem including respiratory failure. Patient was started on BiPAP immediately on arrival in the emergency department. Oxygen saturation is stable on BiPAP. 1202: Vital signs stable on BiPAP. Patient's initial venous blood gas shows PCO2 venous is 105. chest x-ray shows fluid overload. ProBNP elevated 20,032. Patient's troponin is elevated 0.249. It is thought that the patient's elevation in troponin is due to the patient's congestive heart failure and fluid overload. [facility] She will evaluate the patient for further management.I reevaluated the patient and he has no changes in his respiratory status since starting Bi-PAP. His PCO2 has not significantly changed since being on BiPAP. I spoke to the patient's daughter, Sonia Will at [phone]. I discussed the patient's case with her. She is adamant that the patient is a DNR and DNI. She reports that she is on her way. Hospitalist team will trend the troponin. Consultations Consultation #1: I reviewed the patient's case with [facility] Hospital[facility]. She will evaluate the patient for further management. Time: 12:02 Administered Medications Insulin Aspart (Novolog Flexpen) 0 units SC ACHS EDUARDO Stop: 06/21/18 16:38 Last Admin: 05/22/18 17:46 Dose: Not Given Miscellaneous (Order Awaiting Action) 1 ea N/A QS EDUARDO Stop: 06/21/18 17:14 Last Admin: 05/22/18 17:46 Dose: Not Given Discontinued Medications Albuterol (Duoneb) 12 ml NEB ONE ONE Stop: 05/22/18 10:25 Last Admin: 05/22/18 10:43 Dose: 12 ml Furosemide (Lasix) 40 mg IV NOW STA Stop: 05/22/18 11:30 Last Admin: 05/22/18 11:44 Dose: 40 mg Ioversol (Optiray 320 125ml) 120 ml IV ONCE PRN PRN Reason: Interaction Checking Stop: 05/26/18 14:22 Last Admin: 05/22/18 14:24 Dose: 120 ml Methylprednisolone (Solumedrol) 125 mg IV NOW STA Stop: 05/22/18 10:25 Last Admin: 05/22/18 10:41 Dose: 125 mg Medical Decision Making Medical Records Attestation: I reviewed the patient's medical records. Home Medications Current Medication List: was personally reviewed by me Laboratory Data Attestation: I reviewed the patient's lab results. Result diagrams: 05/22/18 10:25 05/22/18 10:25 Lab Results 05/22/18 05/22/18 05/22/18 Range/Units 10:25 10:25 10:25 WBC 5.64 (4.8-10.8) K/uL RBC 5.15 (4.7-6.1) M/uL Hgb 12.9 L (14.0-18.0) g/dL Hct 45.8 (42-52) % MCV 88.9 (80-100) fL MCH 25.0 (25-34) pg MCHC 28.2 L (32-36) g/dL RDW Std Deviation 54.1 H (36.4-46.3) fL RDW Coeff of Lakeshia 16.5 H (11.5-14.5) % Plt Count 139 (130-400) K/uL MPV 11.3 H (7.4-10.4) fL Immature Gran % (Auto) 1.6 % Neut % (Auto) 85.2 % Lymph % (Auto) 6.6 % Hyde % (Auto) 6.2 % Eos % (Auto) 0.0 % Baso % (Auto) 0.4 % Immature Gran # (Auto) 0.09 H (0.00-0.02) K/uL Neut # (Auto) 4.81 (1.4-6.5) K/uL Lymph # (Auto) 0.37 L (1.2-3.4) K/uL Hyde # (Auto) 0.35 (0.11-0.59) K/uL Eos # (Auto) 0.00 (0-0.5) K/uL Baso # (Auto) 0.02 (0-0.2) K/uL Absolute Nucleated RBC 0.04 H (0-0) K/uL Nucleated RBC % (auto) 0.7 % Basophilic Stippling Occasional ABG pH (7.35-7.45) ABG pCO2 (35-46) mmHg ABG pO2 (80-95) mm/Hg ABG HCO3 (19-24) mmol/L ABG O2 Saturation (90-95) % ABG Base Excess (-9-1.8) mEq/L Tyson Test (Pos) VBG pH (7.36-7.41) VBG pCO2 (38-50) mmHg VBG pO2 mmHg VBG HCO3 mmol/L VBG O2 Saturation % VBG Base Excess mEq/L Barometric Pressure mm/Hg Oxygen Given Sodium 139 (136-145) mmol/L Potassium 5.1 (3.5-5.1) mmol/L Chloride 98 (98-107) mmol/L Carbon Dioxide 38 H (21-32) mmol/L Anion Gap 3.0 (3-11) BUN 37 H (7-18) mg/dl Creatinine 0.94 (0.6-1.4) mg/dl Est Cr Clr Drug Dosing 57.5 ml/min Est GFR ( Amer) 85.3 Est GFR (Non-Af Amer) 73.6 BUN/Creatinine Ratio 38.9 H (10-20) Glucose 155 H (70-99) mg/dl POC Glucose (70-99) Lactate 1.8 (0.4-2.0) mmol/L Calcium 8.3 L (8.5-10.1) mg/dl Troponin I 0.249 H* (0-0.045) ng/ml NT-Pro-B Natriuret Pep 03977 H (0-1800) pg/ml Influenza Type A (PCR) (Neg) Influenza Type B (PCR) (Neg) 05/22/18 05/22/18 05/22/18 Range/Units 10:26 10:34 10:40 WBC (4.8-10.8) K/uL RBC (4.7-6.1) M/uL Hgb (14.0-18.0) g/dL Hct (42-52) % MCV (80-100) fL MCH (25-34) pg MCHC (32-36) g/dL RDW Std Deviation (36.4-46.3) fL RDW Coeff of Lakeshia (11.5-14.5) % Plt Count (130-400) K/uL MPV (7.4-10.4) fL Immature Gran % (Auto) % Neut % (Auto) % Lymph % (Auto) % Hyde % (Auto) % Eos % (Auto) % Baso % (Auto) % Immature Gran # (Auto) (0.00-0.02) K/uL Neut # (Auto) (1.4-6.5) K/uL Lymph # (Auto) (1.2-3.4) K/uL Hyde # (Auto) (0.11-0.59) K/uL Eos # (Auto) (0-0.5) K/uL Baso # (Auto) (0-0.2) K/uL Absolute Nucleated RBC (0-0) K/uL Nucleated RBC % (auto) % Basophilic Stippling ABG pH (7.35-7.45) ABG pCO2 (35-46) mmHg ABG pO2 (80-95) mm/Hg ABG HCO3 (19-24) mmol/L ABG O2 Saturation (90-95) % ABG Base Excess (-9-1.8) mEq/L Tyson Test (Pos) VBG pH 7.22 L (7.36-7.41) VBG pCO2 105 H (38-50) mmHg VBG pO2 55 mmHg VBG HCO3 42 mmol/L VBG O2 Saturation 84.3 % VBG Base Excess 10.2 mEq/L Barometric Pressure 732.0 mm/Hg Oxygen Given Sodium (136-145) mmol/L Potassium (3.5-5.1) mmol/L Chloride (98-107) mmol/L Carbon Dioxide (21-32) mmol/L Anion Gap (3-11) BUN (7-18) mg/dl Creatinine (0.6-1.4) mg/dl Est Cr Clr Drug Dosing ml/min Est GFR ( Amer) Est GFR (Non-Af Amer) BUN/Creatinine Ratio (10-20) Glucose (70-99) mg/dl POC Glucose 169 H (70-99) Lactate (0.4-2.0) mmol/L Calcium (8.5-10.1) mg/dl Troponin I (0-0.045) ng/ml NT-Pro-B Natriuret Pep (0-1800) pg/ml Influenza Type A (PCR) Neg for Influ A (Neg) Influenza Type B (PCR) Neg for Influ B (Neg) 05/22/18 05/22/18 05/22/18 Range/Units 11:46 13:55 16:22 WBC (4.8-10.8) K/uL RBC (4.7-6.1) M/uL Hgb (14.0-18.0) g/dL Hct (42-52) % MCV (80-100) fL MCH (25-34) pg MCHC (32-36) g/dL RDW Std Deviation (36.4-46.3) fL RDW Coeff of Lakeshia (11.5-14.5) % Plt Count (130-400) K/uL MPV (7.4-10.4) fL Immature Gran % (Auto) % Neut % (Auto) % Lymph % (Auto) % Hyde % (Auto) % Eos % (Auto) % Baso % (Auto) % Immature Gran # (Auto) (0.00-0.02) K/uL Neut # (Auto) (1.4-6.5) K/uL Lymph # (Auto) (1.2-3.4) K/uL Hyde # (Auto) (0.11-0.59) K/uL Eos # (Auto) (0-0.5) K/uL Baso # (Auto) (0-0.2) K/uL Absolute Nucleated RBC (0-0) K/uL Nucleated RBC % (auto) % Basophilic Stippling ABG pH 7.24 L (7.35-7.45) ABG pCO2 102 H (35-46) mmHg ABG pO2 72 L (80-95) mm/Hg ABG HCO3 43 H (19-24) mmol/L ABG O2 Saturation 92.3 (90-95) % ABG Base Excess 10.9 H (-9-1.8) mEq/L Tyson Test Pos (Pos) VBG pH 7.22 L (7.36-7.41) VBG pCO2 103 H (38-50) mmHg VBG pO2 77 mmHg VBG HCO3 41 mmol/L VBG O2 Saturation 92.9 % VBG Base Excess 9.6 mEq/L Barometric Pressure 733.2 734.1 mm/Hg Oxygen Given 100% Sodium (136-145) mmol/L Potassium (3.5-5.1) mmol/L Chloride (98-107) mmol/L Carbon Dioxide (21-32) mmol/L Anion Gap (3-11) BUN (7-18) mg/dl Creatinine (0.6-1.4) mg/dl Est Cr Clr Drug Dosing ml/min Est GFR ( Amer) Est GFR (Non-Af Amer) BUN/Creatinine Ratio (10-20) Glucose (70-99) mg/dl POC Glucose 176 H (70-99) Lactate (0.4-2.0) mmol/L Calcium (8.5-10.1) mg/dl Troponin I (0-0.045) ng/ml NT-Pro-B Natriuret Pep (0-1800) pg/ml Influenza Type A (PCR) (Neg) Influenza Type B (PCR) (Neg) 05/22/18 Range/Units 16:44 WBC (4.8-10.8) K/uL RBC (4.7-6.1) M/uL Hgb (14.0-18.0) g/dL Hct (42-52) % MCV (80-100) fL MCH (25-34) pg MCHC (32-36) g/dL RDW Std Deviation (36.4-46.3) fL RDW Coeff of Lakeshia (11.5-14.5) % Plt Count (130-400) K/uL MPV (7.4-10.4) fL Immature Gran % (Auto) % Neut % (Auto) % Lymph % (Auto) % Hyde % (Auto) % Eos % (Auto) % Baso % (Auto) % Immature Gran # (Auto) (0.00-0.02) K/uL Neut # (Auto) (1.4-6.5) K/uL Lymph # (Auto) (1.2-3.4) K/uL Hyde # (Auto) (0.11-0.59) K/uL Eos # (Auto) (0-0.5) K/uL Baso # (Auto) (0-0.2) K/uL Absolute Nucleated RBC (0-0) K/uL Nucleated RBC % (auto) % Basophilic Stippling ABG pH (7.35-7.45) ABG pCO2 (35-46) mmHg ABG pO2 (80-95) mm/Hg ABG HCO3 (19-24) mmol/L ABG O2 Saturation (90-95) % ABG Base Excess (-9-1.8) mEq/L Tyson Test (Pos) VBG pH (7.36-7.41) VBG pCO2 (38-50) mmHg VBG pO2 mmHg VBG HCO3 mmol/L VBG O2 Saturation % VBG Base Excess mEq/L Barometric Pressure mm/Hg Oxygen Given Sodium (136-145) mmol/L Potassium (3.5-5.1) mmol/L Chloride (98-107) mmol/L Carbon Dioxide (21-32) mmol/L Anion Gap (3-11) BUN (7-18) mg/dl Creatinine (0.6-1.4) mg/dl Est Cr Clr Drug Dosing ml/min Est GFR ( Amer) Est GFR (Non-Af Amer) BUN/Creatinine Ratio (10-20) Glucose (70-99) mg/dl POC Glucose (70-99) Lactate (0.4-2.0) mmol/L Calcium (8.5-10.1) mg/dl Troponin I 0.209 H* (0-0.045) ng/ml NT-Pro-B Natriuret Pep (0-1800) pg/ml Influenza Type A (PCR) (Neg) Influenza Type B (PCR) (Neg) Imaging Data Radiologist's Impression: Radiology results as stated below per my review and the radiologist's interpretation: XR chest 1V portable CLINICAL HISTORY: Respiratory difficulty COMPARISON STUDY: 03/19/2018 FINDINGS: The heart is enlarged. There are small pleural effusions right greater left. There are basilar airspace opacities likely representing compressive atelectasis although an associated infectious/inflammatory process could appear similar. There is elevation of the interstitium consistent with mild pulmonary vascular congestion/fluid overload. Underlying emphysema is suspected.[ IMPRESSION: 1. Cardiomegaly and radiographic evidence of mild pulmonary vascular congestion 2. Bilateral pleural effusions with associated basilar airspace opacities likely atelectatic 3. Suspected underlying emphysema Electronically signed by: Edgardo Nina M.D. 05/22/2018 10:54 AM ECG Data Attestation: I personally reviewed and interpreted this ECG as follows: Indication: SOB/dyspnea Rate (beats per minute): 99 Rhythm: sinus rhythm Findings: + other (AR, QRS, and QT-c intervals are within normal limits); no ST depression and no ST elevation Blood Pressure Blood Pressure Findings: Elevated blood pressure Blood Pressure Disposition: further management by hospitalist ABDON Narrative 1022: Past medical records reviewed. The patient was evaluated in room B9, and a complete history and physical examination were performed. EMR reviewed. Patient has a long history of respiratory problem including respiratory failure. Patient was started on BiPAP immediately on arrival in the emergency department. Oxygen saturation is stable on BiPAP. 1202: Vital signs stable on BiPAP. Patient's initial venous blood gas shows PCO2 venous is 105. chest x-ray shows fluid overload. ProBNP elevated 20,032. Patient's troponin is elevated 0.249. It is thought that the patient's elevation in troponin is due to the patient's congestive heart failure and fluid overload. I reviewed the patient's case with Dia Dunn PA-C - [facility] Hospitalist. She will evaluate the patient for further management.I reevaluated the patient and he has no changes in his respiratory status since starting Bi-PAP. His PCO2 has not significantly changed since being on BiPAP. I spoke to the patient's daughter, Sonia Will at [phone]. I discussed the patient's case with her. She is adamant that the patient is a DNR and DNI. She reports that she is on her way. Hospitalist team will trend the troponin. Impression & Plan CHF exacerbation, Respiratory acidosis Critical Care Time I have personally spent greater than 58 minutes of critical care time in the direct management of this patient. This includes bedside care, interpretation of diagnostic studies, and testing, discussion with consultants, patient, and family members, and other required patient management activities. This 58 minutes is in excess of all separately billable procedures. Critical Care Time: Yes Total Critical Care Time: 58 Discharge Plan Visit Data *Final* Discharge Date/Time: 05/22/18 15:38 Chief Complaint: Respiratory Problems ED Provider: Nate Porter Discharge Problem: CHF exacerbation, Respiratory acidosis Patient Disposition: Admitted As Inpatient Discharge Instructions Interventions: ED Discharge Assessment Last Done: 05/22/18 15:38 The scribe's documentation has been prepared under my direction and personally reviewed by me in its entirety. I confirm that the note above accurately reflects all work, treatment, procedures, and medical decision making performed by me.
[2018-05-22] MEDS: ALBUT/IPRATROP 3MG/0.5MG NEB 3 ML VIAL NEB SCH ×2 (20:27→20:28)
[2018-05-22] MEDS ORDERED: Nursing to Pharmacy Communication ONE (20:30)
[2018-05-22] MEDS ORDERED: levETIRAcetam 500 MG TAB PO SCH (21:00)
--- NOTE | 2018-05-22 21:12 | Consultation Report ---
DATE OF CONSULTATION: 05/22/2018 PULMONARY CONSULTATION TIME: 5:50 p.m. REPORT OF CONSULTATION: The patient was seen in room 241, bed 1. He resides at [facility]. Reportedly, he was sent over earlier today because of worsening hypoxia and lethargy. In the ER initially his room air pulse oximetry was 55%. The patient is unable to give any significant history. He did increase to 96% when placed on BiPAP. The patient has remained on BiPAP. He is awake at the present time, but unable to verbalize to any degree. He does have a history of significant dementia. As part of his evaluation, he did have an arterial blood gas done and this showed a pH of 7.24 with a pCO2 of 102 and a pO2 of 72. This was done on 100% oxygen. This obviously reflects partially compensated respiratory acidosis with a severe oxygen shunt. The patient is known to have COPD. Reportedly, he had a recent RSV infection. I do not know how that diagnosis was made. He carries a history of congestive heart failure. He previously was hospitalized from 03/01/2018 until 03/09/2018. At that time, he was transferred from [facility]. He reportedly had a left hip fracture that did not require operative intervention. He was in respiratory failure at that time, but his pCO2 was 74, which would be better than at present. He had a CAT scan of the chest done in [place] that reported a small pulmonary embolism in the right lower lobe. The patient was felt to be a significant fall risk. Thus, he was not treated at that time. The patient carries a history of COPD and is on chronic oxygen therapy. He was a smoker in the past. He smoked for about 45 years or more at about 2 packs per day which would translate into 90 pack years. He quit smoking 17 years ago. 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 PAST SURGICAL HISTORY: 1. Hernia repair. 2. Fem-pop bypass. 3. Mastoid surgery. 4. Spine surgery. 5. Total hip replacement. 6. Pain pump insertion. PAST MEDICAL HISTORY: 1. DVT. 2. Coronary artery disease. 3. Peripheral vascular disease. 4. CVA. 5. Sleep apnea - intolerant of CPAP. 6. Diabetes. 7. Hypertension. 8. Subdural hematoma. 9. Seizure disorder. 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 11. Anemia. 12. Thrombocytopenia. 13. BPH. 14. Severe hearing loss. FAMILY HISTORY: Reportedly positive for heart disease. ALLERGIES: CEPHALOSPORINS AND SULFA. REVIEW OF SYSTEMS: Essentially unobtainable. MEDICATIONS AT PRESENT: 1. Baby aspirin daily. 2. Proscar 5 mg daily. 3. Keppra 500 mg b.i.d. 4. Magnesium oxide 400 mg daily. 5. NovoLog insulin. 6. Pravastatin. 7. DuoNebs q.i.d. 8. SubQ heparin 5000 units q.8h. 9. Lantus insulin. PHYSICAL EXAMINATION: GENERAL: The patient is an 83-year-old male who was wearing BiPAP. His eyes were opened. He did not follow commands. He did indicate that he wanted to drink something. HEENT: Pupils were reactive. I could not evaluate the nasal passages or oropharynx. This was due to the BiPAP being in place. NECK: Veins were also very hard to assess. The patient has a marked kyphosis. HEART: Heart rate 90. Rhythm regular. Systolic murmur 2/6 heard. Blood pressure 144/70. LUNGS: Respiratory rate 24. Decreased breath sounds throughout. Saturation 98% on 100% oxygen. Temperature 36.4. ABDOMEN: Soft. Bowel sounds were present. There was no tenderness to palpation or masses. Vallejo catheter was in place. EXTREMITIES: Showed severe color changes in the lower legs suggestive for chronic venous disease. No significant edema was noted. LABORATORY DATA: White count 5.64. Hemoglobin 12.9. Platelets 139,000. Electrolytes show sodium 139, potassium 5.1, chloride 98, bicarbonate 38. BUN 37 with a creatinine of 0.94. Troponin elevated slightly at 0.249. BNP was 20,032. Flu test was negative. IMAGING DATA: Chest x-ray showed cardiomegaly with mild pulmonary vascular congestion. Emphysema was suspected. Small effusions noted. CT of the chest was done. This shows severe multi-chamber cardiac enlargement. There was fusiform dilatation of the ascending thoracic aorta measuring up to 4.4. There was dilatation of the main pulmonary artery. There was no definite evidence of pulmonary thromboembolic disease. Suggestion of pulmonary edema was noted. Bilateral effusions were present with bibasilar ground-glass and consolidative opacities, greater on the right than the left. There was subcentimeter opacities of the left lower and right upper lobes suspicious for pneumonitis. Head CT showed chronic changes. EKG: Showed what appeared to be sinus rhythm with supraventricular premature contractions. There was delayed R-wave progression across the precordium. Nonspecific ST and T-wave changes seen. Low voltage was present. IMPRESSION: 1. Iqxal-ip-skimevl respiratory failure with hypoxia and hypercarbia. 2. Congestive heart failure. 3. Bilateral pleural effusions. 4. Pneumonitis. COMMENTS AND RECOMMENDATIONS: The patient's overall status is poor. For now, he is tolerating BiPAP. At the time of his prior hospital stays, he would refuse BiPAP when he was subsequently feeling better. We should keep his oxygen saturations low such as between 88% and 92% in order to try and stimulate ventilation. The patient is not on antibiotic therapy. The CAT scan was interpreted as suspicious for infectious or inflammatory pneumonitis. Would suggest antibiotic therapy. He is allergic to sulfa and cephalosporins. Perhaps would give him either levofloxacin or doxycycline. Thank you for asking me to assist in his care.
[2018-05-22] MEDS: PRAVASTATIN SOD 40 MG TAB PO SCH (21:26)
[2018-05-22] MEDS: INSULIN GLARGINE SOLOSTAR 100 UNITS/ML 3 ML PEN SC SCH (22:04)
[2018-05-22] MEDS: HEPARIN SOD 5,000 UNIT/0.5 ML VIAL SQ SCH (22:04)
[2018-05-22] MEDS ORDERED: FUROSEMIDE 40 MG in SYRINGE 0 ML IV ONE (22:30)
[2018-05-23] MEDS: INSULIN ASPART 100 UNITS/ML 3 ML PEN SC SCH ×5 (00:15→20:25)
[2018-05-23 06:33] LABS: Hematocrit (blood only) 43.9 % (42-52); Mean Corpuscular Hgb Conc 29.6 g/dL (32-36); Mean Corpuscular Volume 85.4 fL (80-100); Mean Platelet Volume 10.9 fL (7.4-10.4); Platelet Count 148 K/uL (130-400); RDW Coefficient of Variation 16.2 % (11.5-14.5); RDW Standard Deviation 51.3 fL (36.4-46.3); Red Blood Count 5.14 M/uL (4.7-6.1); White Blood Count 7.04 K/uL (4.8-10.8)
[2018-05-23] MEDS: ALBUT/IPRATROP 3MG/0.5MG NEB 3 ML VIAL NEB SCH ×4 (07:04→19:20)
[2018-05-23 07:17] LABS: BUN Creatinine Ratio 44.7 (10-20); Calcium 8.4 mg/dl (8.5-10.1); Creatinine Clr Calc Pharmacy 60.9 ml/min; Est GFR (African American) 90.8; Est GFR (Non-African American) 78.3; Magnesium 1.6 mg/dl (1.8-2.4); Potassium 4.1 mmol/L (3.5-5.1)
[2018-05-23] MEDS: HEPARIN SOD 5,000 UNIT/0.5 ML VIAL SQ SCH ×3 (07:17→20:23)
[2018-05-23] MEDS: FINASTERIDE 5 MG TAB PO SCH (08:51)
[2018-05-23] MEDS: MAGNESIUM OXIDE 400 MG TAB PO SCH (08:51)
[2018-05-23] MEDS: INSULIN GLARGINE SOLOSTAR 100 UNITS/ML 3 ML PEN SC SCH ×2 (08:52→20:25)
[2018-05-23] MEDS: ASPIRIN 81 MG ECTAB PO SCH (08:52)
--- NOTE | 2018-05-23 11:08 | Hospitalist Progress Note ---
Date of Service May 23, 2018 Assessment & Plan (1) Respiratory failure, acute and chronic: 2/2 COPD exacerbation. Wheezing heard on exam today. Appears somewhat improved after BIPAP. Still requiring 6L Oxymask. Steroids, doxy, nebs. Appreciate pulm recs. Noted that the patient had a recent RSV infection. (2) CHF exacerbation: Appears compensated today after IV Lasix. Restart PO Lasix daily at 40mg instead of his home 20mg daily. Cont sodium restricted diet. Daily weights (3) Metabolic encephalopathy: 2/2 underlying COPD/CHF exacerbation, hypoxia, medications, infection as possible causes. He appears more clear today although uncertain of his baseline. (4) Elevated troponin: Troponin trend is flat without elevation making this appear to be more consistent with demand ischemia. No acute EKG changes and no chest pain reported. However, will obtain repeat TTE to ensure no acute wall motion abnormalities. (5) History of pulmonary embolism: H/O PE 02/2018. IVC filter reported to be denied at that time. Pt was not discharged on anticoagulants secondary to fall risk, hx subdural hematoma -No PE on repeat CTA. 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 Subjective reports breathing has improved denies fevers or chills tolerating PO Physical Exam 2 Vital Signs (Past 24 Hours): Last Vital Signs Temp 37.1 C 05/23/18 10:57 Pulse 83 05/23/18 10:57 Resp 22 05/23/18 10:57 BP 137/97 05/23/18 10:57 Pulse Ox 91 05/23/18 10:57 CONSTITUTIONAL: WNWD, vitals as above, generally well-appearing EYES: normal conjuctivae, no scleral icterus NECK: trachea midline, no lymphadenopathy, normal thyroid RESPIRATORY: wheezing at bases, normal respiratory effort CARDIOVASCULAR: regular rate and rhythm, S1 and 2 heard without murmurs, gallops or rubs, no JVD, no peripheral edema GASTROINTESTINAL: normal bowel sounds, soft, nontender, nondistended MUSCULOSKELETAL: generalized weakness SKIN: warm and dry Neuro: alert and cooperative, oriented to person and place. Understands why he is here but has a difficult time articulating this. Results & Data Laboratory Results Short CBC 05/22/18 05/23/18 Range/Units 10:25 05:49 WBC 5.64 7.04 (4.8-10.8) K/uL Hgb 12.9 L 13.0 L (14.0-18.0) g/dL Hct 45.8 43.9 (42-52) % Plt Count 139 148 (130-400) K/uL BMP 05/23/18 05:49 Sodium 142 Potassium 4.1 D Chloride 93 L Carbon Dioxide BUN 39 H Creatinine 0.88 Glucose 130 H Calcium 8.4 L Cardiac Enzymes 05/22/18 05/22/18 05/22/18 Range/Units 10:25 16:44 22:26 Troponin I 0.249 H* 0.209 H* 0.181 H* (0-0.045) ng/ml _ (1) CHF exacerbation Heart failure type: unspecified Qualified Code(s): I50.9 - Heart failure, unspecified
[2018-05-23 11:48] LABS: HCO3 ABG 46 mmol/L (19-24); Oxygen Saturation ABG 87.1 % (90-95); PCO2 ABG 72 mmHg (35-46); PO2 ABG 53 mm/Hg (80-95); pH ABG 7.43 (7.35-7.45)
[2018-05-23 11:49] LABS: Allen Test Pos (Pos)
[2018-05-23] MEDS: DOXYCYCLINE HYCLATE 100 MG in DEXTROSE 5% 100 ML IV SCH ×2 (11:56→23:25)
[2018-05-23] MEDS: methylPREDNISolone 40 MG in SYRINGE 0 ML IV SCH ×2 (11:57→20:23)
[2018-05-23] MEDS ORDERED: Nursing to Pharmacy Communication ONE (19:14)
--- NOTE | 2018-05-23 19:26 | Progress Note ---
DATE: 05/23/2018 TIME: 6:00 p.m. SUBJECTIVE: The patient states he is feeling better. He is much more alert than when I saw him last evening. He states he has been coughing today and he will bring up some phlegm. Last evening when I saw him, he was on a BiPAP and not able to communicate. It is not known if he wore his BiPAP overnight last night or not. OBJECTIVE: GENERAL: The patient appears comfortable. Temperature is 37.3. This would be the highest temperature in the past 24 hours. He was cooperative. He was talkative. He was not oriented. There is an OxyMask in place at 5 liters. HEART: Heart rate is 86 per minute. Rhythm is regular, but with occasional extrasystoles. Blood pressure 146/88. LUNGS: Lung manuel revealed scattered rhonchi bilaterally. There was better aeration than what I heard yesterday. Saturation is 91% on the OxyMask 5 liters. EXTREMITIES: Shows no edema. He has the marked discoloration of the lower extremities. The patient appears to have had a good diuresis. Output for the prior 24 hours was 2800 mL for a net balance of -2480 reportedly. LABORATORY DATA: White count is 7.04. Hemoglobin 13. Platelets 148,000. Arterial blood gas today showed a pH 7.43 with pCO2 of 72 and a pO2 of 53. This was done on 5 liters of oxygen. This reflects a marked improvement in the pCO2 which previously was 102 and a marked improvement with normalization of the pH which previously had been 7.24. Electrolytes show sodium 142, potassium 4.1, chloride 93, bicarbonate 44. The bicarbonate will be high because of his severe CO2 retention on arterial blood gases. BUN is 39 with a creatinine of 0.88. IMPRESSION: 1. Respiratory failure -- acute on chronic with hypoxia and hypercarbia. 2. Congestive heart failure. 3. Pleural effusions. 4. Pneumonitis. COMMENTS AND RECOMMENDATIONS: The patient seems much improved. I suspect that tomorrow you may be able to decrease the methylprednisolone further if the patient has a good night. Hopefully, he will wear the BiPAP. I would continue with the doxycycline.
[2018-05-23] MEDS: PRAVASTATIN SOD 40 MG TAB PO SCH (20:23)
[2018-05-24] MEDS: methylPREDNISolone 40 MG in SYRINGE 0 ML IV SCH ×3 (05:58→20:49)
[2018-05-24 06:07] LABS: Hematocrit (blood only) 43.3 % (42-52); Hemoglobin 13.1 g/dL (14.0-18.0); Mean Corpuscular Hgb Conc 30.3 g/dL (32-36); Mean Corpuscular Volume 83.1 fL (80-100); Mean Platelet Volume 10.7 fL (7.4-10.4); Platelet Count 149 K/uL (130-400); RDW Coefficient of Variation 16.3 % (11.5-14.5); RDW Standard Deviation 49.5 fL (36.4-46.3); Red Blood Count 5.21 M/uL (4.7-6.1); White Blood Count 3.87 K/uL (4.8-10.8)
[2018-05-24 06:54] LABS: BUN Creatinine Ratio 41.7 (10-20); Calcium 8.3 mg/dl (8.5-10.1); Est GFR (Non-African American) 84.6; Potassium 4.1 mmol/L (3.5-5.1)
[2018-05-24] MEDS: ALBUT/IPRATROP 3MG/0.5MG NEB 3 ML VIAL NEB SCH ×4 (07:16→19:07)
[2018-05-24] MEDS: ONDANSETRON INJ 2 MG/ML 2 ML VIAL IV SCH ×3 (08:07→20:49)
[2018-05-24] MEDS: FINASTERIDE 5 MG TAB PO SCH (08:08)
[2018-05-24] MEDS: MAGNESIUM OXIDE 400 MG TAB PO SCH (08:08)
[2018-05-24] MEDS: ENOXAPARIN INJ 40 MG/0.4 ML SYR SQ SCH (08:09)
[2018-05-24] MEDS: GABAPENTIN 100 MG CAP PO SCH ×3 (08:10→20:49)
[2018-05-24] MEDS: INSULIN GLARGINE SOLOSTAR 100 UNITS/ML 3 ML PEN SC SCH ×2 (08:11→20:58)
[2018-05-24] MEDS: ASPIRIN 81 MG ECTAB PO SCH (08:12)
[2018-05-24] MEDS ORDERED: FUROSEMIDE 40 MG in SYRINGE 0 ML IV SCH (09:00)
[2018-05-24] MEDS ORDERED: FUROSEMIDE 40 MG TAB PO SCH (09:00)
[2018-05-24] MEDS: INSULIN ASPART 100 UNITS/ML 3 ML PEN SC SCH ×4 (09:27→21:00)
--- NOTE | 2018-05-24 10:53 | Hospitalist Progress Note ---
Date of Service May 24, 2018 Assessment & Plan (1) Respiratory failure, acute and chronic: 2/2 COPD exacerbation and CHF exacerbation. Appears improved. Cont BIPAP, supplemental oxygen, Steroids, doxy, nebs. Increase diuretics to furosemide 40mg BID per Cardiology recs. Noted that the patient had a recent RSV infection. (2) CHF exacerbation: as above. Severe mitral valve insufficiency present. Cont sodium restricted diet. (3) Elevated troponin: Troponin trend is flat without elevation making this appear to be more consistent with demand ischemia. No acute EKG changes and no chest pain re ported. RV systolic function is reduced on echo but there are no acute wall motion abnormalities (4) History of pulmonary embolism: H/O PE 02/2018. IVC filter reported to be denied at that time. Pt was not discharged on anticoagulants secondary to fall risk, hx subdural hematoma -No PE on repeat CTA. (5) Diabetes mellitus, type II: A1c: 7.2 on 02/2018 -hold metformin -Novolog Lantus sliding scale per protocol -Monitor BSGs (6) PVD (peripheral vascular disease): H/O fem pop bypass in past (7) H/O: CVA (cerebrovascular accident): Also hx traumatic subdural hematoma -CT Head without acute changes (8) YCRIL (obstructive sleep apnea): Reportedly Intolerant of CPAP (9) Dementia: (10) Chronic back pain: Secondary to post laminectomy syndrome Intrathecal pump-Dilaudid Cont gabapentin (11) Epilepsy: -Continue Keppra (12) DVT prophylaxis: Heparin DNR Dispo-cont telemetry monitoring Anabella Reid DO [facility] Hospitalist Subjective frequently falling asleep awakens and is oriented to person and place which appears to be his baseline he knows why he is in the hospital he denies any pain and reports his breathing is better since admission tolerating PO review of telemetry reveals sinus rhythm in the 60-70s overnight. Physical Exam Vital Signs (Past 24 Hours): Last Vital Signs Temp 36.7 C 05/24/18 08:37 Pulse 73 05/24/18 08:37 Resp 22 05/24/18 08:37 BP 139/74 05/24/18 08:37 Pulse Ox 92 05/24/18 08:37 CONSTITUTIONAL: WNWD, vitals as above, generally well-appearing EYES: normal conjuctivae, no scleral icterus NECK: trachea midline, no lymphadenopathy, normal thyroid RESPIRATORY: mild coarse rhonchi at bases but this is difficult to appreciate as the patient is not able to take deep breaths, normal respiratory effort CARDIOVASCULAR: regular rate and rhythm, S1 and 2 heard without murmurs, gallops or rubs, no JVD, no peripheral edema GASTROINTESTINAL: normal bowel sounds, soft, nontender, nondistended MUSCULOSKELETAL: generalized weakness SKIN: warm and dry Neuro: alert and cooperative, oriented to person and place. Understands why he is here but has a difficult time articulating this. Results & Data Laboratory Results Short CBC 05/24/18 Range/Units 05:37 WBC 3.87 L (4.8-10.8) K/uL Hgb 13.1 L (14.0-18.0) g/dL Hct 43.3 (42-52) % Plt Count 149 (130-400) K/uL BMP 05/23/18 05/23/18 05/24/18 05:49 11:28 05:37 Sodium 137 Potassium 4.1 Chloride 92 L Carbon Dioxide 44 H* 42 H* BUN 30 H Creatinine 0.73 Glucose 152 H Calcium 8.3 L Medications Administered Current Inpatient Medications Acetaminophen (Tylenol) 650 mg PO Q4H PRN PRN Reason: Pain or Fever Stop: 06/21/18 16:38 Last Admin: 05/23/18 20:37 Dose: 650 mg Documented by: Albuterol (Duoneb) 3 ml NEB QIDR EDUARDO Stop: 06/21/18 16:38 Last Admin: 05/24/18 07:16 Dose: 3 ml Documented by: Albuterol (Duoneb) 3 ml NEB Q2H PRN PRN Reason: SOB/WHEEZING Stop: 06/21/18 17:07 Aspirin (Ecotrin Ectab) 81 mg PO QAM [facility] Stop: 06/22/18 08:59 Last Admin: 05/24/18 08:12 Dose: 81 mg Documented by: Dextrose (Dextrose 50%) 25 - 50 ml IV UD PRN; Protocol PRN Reason: Hypoglycemia Protocol Stop: 06/21/18 16:38 Enoxaparin Sodium (Lovenox) 40 mg SQ QAM [facility] Stop: 06/23/18 08:59 Last Admin: 05/24/18 08:09 Dose: 40 mg Documented by: Finasteride (Proscar) 5 mg PO QAM EDUARDO Stop: 06/22/18 08:59 Last Admin: 05/24/18 08:08 Dose: 5 mg Documented by: Gabapentin (Neurontin) 100 mg PO TID EDUARDO Stop: 06/23/18 08:59 Last Admin: 05/24/18 08:10 Dose: 100 mg Documented by: Glucagon (Glucagen) 1 mg SQ UD PRN; Protocol PRN Reason: Hypoglycemia Protocol Stop: 06/21/18 16:38 Glucose (Glucose 40%) 15 - 30 gm PO UD PRN; Protocol PRN Reason: Hypoglycemia Protocol Stop: 06/21/18 16:38 Glucose (Dex4 Glucose) 4 - 8 tabs PO UD PRN; Protocol PRN Reason: Hypoglycemia Protocol Stop: 06/21/18 16:38 Levetiracetam 500 mg/ Dextrose 105 mls @ 420 mls/hr IV Q12H [facility] Stop: 06/21/18 20:29 Last Infusion: 05/24/18 08:42 Dose: Infused Documented by: Doxycycline Hyclate 100 mg/ (Dextrose) 110 mls @ 50 mls/hr IV Q12H [facility] Stop: 05/30/18 11:59 Last Infusion: 05/24/18 01:36 Dose: Infused Documented by: Methylprednisolone 40 mg/ (Syringe) 0.64 mls @ 1.5 mls/min IV Q8H [facility] Stop: 06/22/18 11:59 Last Admin: 05/24/18 05:58 Dose: Not Given Documented by: Furosemide 40 mg/ Syringe 4 mls @ 4 mls/min IV QAM [facility] Stop: 06/23/18 08:59 Last Admin: 05/24/18 08:10 Dose: 4 mls/min Documented by: Insulin Aspart (Novolog Flexpen) 0 units SC ACHS EDUARDO Stop: 06/22/18 20:59 Last Admin: 05/24/18 09:27 Dose: 1 units Documented by: Insulin Glargine (Lantus Solostar Pen) 0 - 10 units SC BID [facility] Stop: 06/21/18 20:59 Last Admin: 05/24/18 08:11 Dose: 5 units Documented by: Magnesium Oxide (Mag-Ox) 400 mg PO QAM [facility] Stop: 06/22/18 08:59 Last Admin: 05/24/18 08:08 Dose: 400 mg Documented by: Miscellaneous (Order Awaiting Action) 1 ea N/A QS [facility] Stop: 06/21/18 17:14 Last Admin: 05/24/18 08:07 Dose: Not Given Documented by: Miscellaneous (Carbohydrates For Hypoglycemia) 15 - 30 gm PO UD PRN PRN Reason: Hypoglycemia Treatment Stop: 06/21/18 16:38 Ondansetron HCl (Zofran) 4 mg IV Q8 [facility] Stop: 06/23/18 07:14 Last Admin: 05/24/18 08:07 Dose: 4 mg Documented by: Polyethylene Glycol (Miralax Powder Packet) 17 gm PO DAILY PRN PRN Reason: Constipation Stop: 06/21/18 16:38 Pravastatin Sodium (Pravachol) 40 mg PO HS [facility] Stop: 06/21/18 20:59 Last Admin: 05/23/18 20:23 Dose: 40 mg Documented by: (1) CHF exacerbation Heart failure type: unspecified Qualified Code(s): I50.9 - Heart failure, unspecified
[2018-05-24] MEDS: DOXYCYCLINE HYCLATE 100 MG in DEXTROSE 5% 100 ML IV SCH (11:46)
--- NOTE | 2018-05-24 15:30 | Progress Note ---
DATE: 05/24/2018 PULMONARY PROGRESS NOTE TIME: 3:10 p.m. SUBJECTIVE: The patient remains a poor historian. Nursing staff tells me that he refused BiPAP last night. This morning, he was more lethargic. He had severe decreases in oxygen saturation. The BiPAP was put back on and within about an hour and a half, his mentation had returned back to baseline. The patient remains disoriented. Nursing tells me that he coughs up quantities of fairly thick mucus. The patient tells me he is vomiting, but nursing denies that. They think he is just coughing up phlegm. OBJECTIVE: GENERAL: The patient appeared in no distress. He was able to verbalize. He was pleasantly confused. VITAL SIGNS: Temperature is 37.1. There have been no fevers in the past 24 hours. Heart rate is 78 per minute. The rhythm was regular. Blood pressure 146/84. LUNGS: Lung manuel revealed rhonchi bilaterally. This was heard both anteriorly and posteriorly. Saturation on 5 liter nasal cannula is 90%. Earlier today, the saturations were 81%. EXTREMITIES: Showed no edema. Skin changes were again noted in the lower extremities. LABORATORY DATA: White count today was low at 3.87. Hemoglobin 13.1. Platelets 149,000. Electrolytes show sodium 137, potassium 4.1, chloride 92, bicarbonate 42. BUN is 30 with a creatinine of 0.73. Blood sugar today is high as 170. Nasal swab recently was positive for MRSA. IMPRESSION: 1. Respiratory failure - acute on chronic with hypoxia and hypercarbia. 2. Congestive heart failure. 3. Pleural effusions. 4. Pneumonitis. RECOMMENDATIONS: The patient is modestly improved. He would be much better if he would compliant with BiPAP. I believe we can decrease the methylprednisolone dose. Will change to 40 q. 12 hours. Continue with the neb treatments.
--- NOTE | 2018-05-24 18:43 | Cardiology Consultation ---
Date of Consultation May 24, 2018 Assessment & Plan (1) CHF exacerbation: The patient had most recently been seen as an outpatient by Dr. Moreira of our cardiology practice in 2011. In 2010 he had been treated with 6 weeks of antibiotics for aortic valve endocarditis. Patient is very frail. I would speculate that he has multifactorial shortness of breath including acute on chronic hypercapnic respiratory failure, and volume overload. Review of his echo reveals findings of mild concentric left ventricular hypertrophy. The right ventricle is moderately dilated with moderate right ventricular hypokinesis. The left ventricular ejection fraction is normal. Significant mitral annular calcification is noted with moderate to severe mitral regurgitation. The pulmonary artery systolic pressure is calculated to be 54 mmHg consistent with moderate pulmonary hypertension. At this point, would recommend increasing his furosemide from 40 mg daily to 40 mg 2 times per day. Is not a candidate for surgical intervention for his mitral valve due to his frailty, and poor anatomy with noted significant mitral annular calcification. History of Present Illness Attending Physician: Anabella Reid, History of Present Illness Yonathan Alcala is an 83-year-old male seen in cardiology consultation per the request of Dr. Reid for the evaluation of shortness of congestive heart failure. The patient is seen in room 204. He is chronically ill in appearance. He had been admitted several days ago for shortness of breath and has been noted to have hypercapnia. He has a history of past admission several months ago for healthcare associated pneumonia, possible aspiration pneumonia noted at that time. At present he is comfortable. He had apparently been confused earlier on this hospital stay, and it appears that he is improving. Although I am not sure what his baseline mental status is. Past Medical History: 1.Presumed underlying coronary artery disease. 2.Peripheral vascular disease s/p fem-pop bypass. 3.Diabetes. 4.Prior lumbar laminectomy with resultant neuropathy. 5.Hypertension. 6.Sensorineural hearing loss. 7.Subdural hematoma per prior records. 8.Seizure disorder. 9.History of DVT currently off anticoagulation secondary to documented fall risk. 10.COPD on home O2. Past Surgical History: 1.Hernia repair. 2.Fem-pop bypass . 3.Pain pump placement. 4.ORIF of the right hip. Allergies Allergy/AdvReac Type Severity Reaction Status Date / Time Sulfa (Sulfonamide Allergy Intermediate Rash Verified 05/22/18 10:25 Antibiotics) sulfamethoxazole Allergy Intermediate Rash Verified 05/22/18 10:25 [From Bactrim] trimethoprim [From Bactrim] Allergy Intermediate Rash Verified 05/22/18 10:25 Cephalosporins Allergy Unknown UNKNOWN Verified 05/22/18 10:25 Home Medications Home Medications Medication Instructions Recorded Confirmed Type albuterol sulfate 2.5 mg/3 mL 2.5 mg INH Q4H PRN 12/05/17 05/22/18 History (0.083 %) solution for nebulization aspirin 81 mg tablet,delayed 81 mg PO QAM 12/05/17 05/22/18 History release finasteride 5 mg tablet 5 mg PO QAM 12/05/17 05/22/18 History furosemide 20 mg tablet 20 mg PO QAM 12/05/17 05/22/18 History hydrochlorothiazide 12.5 mg tablet 12.5 mg PO QAM 12/05/17 05/22/18 History levetiracetam 500 mg tablet 500 mg PO BID 12/05/17 05/22/18 History magnesium oxide 400 mg capsule 400 mg PO QAM cap 12/05/17 05/22/18 History pravastatin 40 mg tablet 40 mg PO HS 12/05/17 05/22/18 History sennosides 8.6 mg-docusate sodium 2 tab PO HS tab 12/05/17 05/22/18 History 50 mg tablet tiotropium bromide 18 mcg capsule 1 cap INH QAM 12/05/17 05/22/18 History with inhalation device metformin 1,000 mg PO BIDM 03/01/18 05/22/18 History ipratropium-albuterol 3 ml INHALATION Q4H PRN 03/19/18 05/22/18 History ipratropium-albuterol 3 ml INHALATION QID 03/19/18 05/22/18 History magnesium hydroxide [Milk of 30 ml PO DAILY PRN 03/19/18 05/22/18 History Magnesia] polyethylene glycol 3350 17 g PO QAM 03/19/18 05/22/18 History acetaminophen [Tylenol Extra 500 mg PO TID 05/22/18 05/22/18 History Strength] fluticasone-salmeterol 1 puff INHALATION Q12H 05/22/18 05/22/18 History gabapentin 100 mg PO TID 05/22/18 05/22/18 History insulin aspart U-100 [Novolog 2 unit SUBCUT QDB 05/22/18 05/22/18 History U-100 Insulin aspart] insulin aspart U-100 [Novolog 6 unit SUBCUT QDL 05/22/18 05/22/18 History U-100 Insulin aspart] insulin detemir U-100 [Levemir 10 units SQ HS 05/22/18 05/22/18 History U-100 Insulin] menthol [Icy Hot No Mess] 1 applic TOPICAL TID 05/22/18 05/22/18 History thiamine HCl (vitamin B1) [Vitamin 100 mg PO DAILY 05/22/18 05/22/18 History B-1] vit C,R-Nu-wttpv-lutein-zeaxan 1 tab PO QAM 05/22/18 05/22/18 History [PreserVision AREDS-2] Patient History Medical History Chronic back pain (Chronic) Dementia (Chronic) Chronic anemia (Chronic) Diabetes mellitus, type II (Chronic) History of pulmonary embolism (Chronic) Respiratory failure, acute and chronic Pneumonia (Resolved) UTI (urinary tract infection) (Resolved) Ambulatory dysfunction (Chronic) Fracture of greater trochanter of left femur (Resolved) Encephalopathy Presence of intrathecal pump (Chronic) Diabetes (Chronic) CYRIL (obstructive sleep apnea) (Chronic) PVD (peripheral vascular disease) (Chronic) HTN (hypertension) (Chronic) H/O: CVA (cerebrovascular accident) (Chronic) Epilepsy (Chronic) Vascular dementia (Chronic) S/P ORIF (open reduction internal fixation) fracture (Chronic) "Trochanteric Fx " CO2 retention (Chronic) Surgical History History of lumbosacral spine surgery (Chronic) History of open reduction and internal fixation (ORIF) procedure (Chronic) S/P femoral-popliteal bypass surgery (Chronic) Previous back surgery (Chronic) Status post hip replacement (Chronic) "Right" H/O esophagogastroduodenoscopy (Chronic) Family History Other Heart disease Social History Communication Ability: Impaired Beliefs That Will Affect Care: None Current Living Situation: [facility] Current Living Situation Comment: living at the [facility] current occupational status: retired 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 Feels Safe at Home: Yes Smoking Status: Former smoker Hx Alcohol Use: No Hx Substance Use: No Review of Systems 10 point review of systems reviewed and is negative with the exception of that above Physical Exam Vital Signs (Past 24 Hours): Last Vital Signs Temp 37.1 C 05/24/18 15:04 Pulse 78 05/24/18 15:12 Resp 20 05/24/18 15:12 BP 146/84 H 05/24/18 15:04 Pulse Ox 91 05/24/18 15:12 Physical Exam: General: Chronically ill in appearance, no acute distress Eyes: conjunctiva are pink and non-injected, sclera clear Neck: normal jugular venous pulse, no hepatojugular reflux Chest: Decreased breath sounds bilaterally at the bases Cardiac Exam: - regular heart sounds, II/ systolic murmur heard best at the left apex Abdomen: abdomen soft, non-tender, no abnormal masses and no hepatosplenomegaly Musculoskeletal: no gait disturbance, no weakness Extremities: no edema and no cyanosis chronic venous stasis changes Neuro:awake, coversant, follows commands, no focal motor deficits Results & Data Laboratory Results CBC 05/24/18 Range/Units 05:37 WBC 3.87 L (4.8-10.8) K/uL RBC 5.21 (4.7-6.1) M/uL Hgb 13.1 L (14.0-18.0) g/dL Hct 43.3 (42-52) % Plt Count 149 (130-400) K/uL Comprehensive Metabolic Panel 05/24/18 Range/Units 05:37 Sodium 137 (136-145) mmol/L Potassium 4.1 (3.5-5.1) mmol/L Chloride 92 L (98-107) mmol/L Carbon Dioxide 42 H* (21-32) mmol/L BUN 30 H (7-18) mg/dl Creatinine 0.73 (0.6-1.4) mg/dl Glucose 152 H (70-99) mg/dl Calcium 8.3 L (8.5-10.1) mg/dl Intake and Output 05/24/18 05/24/18 05/24/18 06:59 14:59 22:59 Intake Total 109.167 / 579.167 815 / 815 Output Total 400 / 1301 950 / 950 Balance -290.833 / -721.833 -135 / -135 Intake: IV 109.167 / 429.167 215 / 215 Vibramycin 100 mg In D5 100 ml 109.167 / 219.167 110 / 110 @ 50 mls/hr IV Q12H [facility] Rx#: [id number] Keppra 500 mg In D5 100 ml @ 105 / 105 420 mls/hr IV Q12H [facility] Rx#: [id number] Oral 600 / 600 Output: Urine Amount (Catheter) 400 / 1300 950 / 950 [place]/Indwelling 400 / 1300 950 / 950 Other: Weight 70.8 kg Diagnostic Findings EKG performed 05/23/18 revealed sinus rhythm 84 bpm, T wave inversions in the anterior precordial leads. (1) CHF exacerbation Heart failure type: unspecified Qualified Code(s): I50.9 - Heart failure, unspecified
[2018-05-24] MEDS: PRAVASTATIN SOD 40 MG TAB PO SCH (20:49)
[2018-05-24] MEDS ORDERED: ALBUT/IPRATROP 3MG/0.5MG NEB 3 ML VIAL NEB PRN (21:32)
[2018-05-25] MEDS: ONDANSETRON INJ 2 MG/ML 2 ML VIAL IV SCH ×3 (06:00→20:24)
[2018-05-25] MEDS: DOXYCYCLINE HYCLATE 100 MG CAP PO SCH ×2 (06:03→17:14)
[2018-05-25] MEDS: FUROSEMIDE 40 MG in SYRINGE 0 ML IV SCH ×2 (06:05→13:56)
[2018-05-25] MEDS: INSULIN GLARGINE SOLOSTAR 100 UNITS/ML 3 ML PEN SC SCH ×2 (08:16→20:50)
[2018-05-25] MEDS: INSULIN ASPART 100 UNITS/ML 3 ML PEN SC SCH ×4 (08:17→20:49)
[2018-05-25] MEDS: GABAPENTIN 100 MG CAP PO SCH ×3 (08:21→20:24)
[2018-05-25] MEDS: FINASTERIDE 5 MG TAB PO SCH (08:21)
[2018-05-25] MEDS: ENOXAPARIN INJ 40 MG/0.4 ML SYR SQ SCH (08:22)
[2018-05-25] MEDS: methylPREDNISolone 40 MG in SYRINGE 0 ML IV SCH (08:22)
[2018-05-25] MEDS: ASPIRIN 81 MG ECTAB PO SCH (08:23)
[2018-05-25] MEDS: MAGNESIUM OXIDE 400 MG TAB PO SCH (08:23)
[2018-05-25 10:02] LABS: Hematocrit (blood only) 45.1 % (42-52); Hemoglobin 13.5 g/dL (14.0-18.0); Mean Corpuscular Hgb Conc 29.9 g/dL (32-36); Mean Corpuscular Volume 82.6 fL (80-100); Mean Platelet Volume 10.3 fL (7.4-10.4); Platelet Count 150 K/uL (130-400); RDW Coefficient of Variation 16.1 % (11.5-14.5); RDW Standard Deviation 48.3 fL (36.4-46.3); Red Blood Count 5.46 M/uL (4.7-6.1); White Blood Count 3.56 K/uL (4.8-10.8)
[2018-05-25 10:28] LABS: BUN Creatinine Ratio 35.5 (10-20); Calcium 8.5 mg/dl (8.5-10.1); Creatinine Clr Calc Pharmacy 53.6 ml/min; Est GFR (African American) 82.2; Est GFR (Non-African American) 70.9; Potassium 3.9 mmol/L (3.5-5.1)
[2018-05-25] MEDS ORDERED: PHARMACY GLYCEMIC MGMT CONSULT PRN (10:52)
[2018-05-25] MEDS ORDERED: SODIUM CHLORIDE 0.65% NA SOLN 45 ML (OCEAN) PRN (12:16)
[2018-05-25] MEDS: SODIUM CHLORIDE 0.65% NA SOLN 45 ML (OCEAN) ONE ×2 (12:20→12:41)
--- NOTE | 2018-05-25 13:06 | Pharmacy Report ---
Glycemic Control Consultation - Date of Service May 25, 2018 - Scope Scope: Glycemic Pharmacist consulted by Dr Reid on 05/25 for glycemic control and to write orders per [facility] inpatient glycemic control protocol - Objective Weight: 68.1 kg Accuchecks BSG (last 24hrs): 05/24/18 05/24/18 05/25/18 16:22 20:22 07:31 Glucose POC Glucose 172 H 267 H 290 H 05/25/18 05/25/18 09:49 11:28 Glucose 254 H POC Glucose 205 H Laboratory Data (last 24hrs): 05/25/18 09:49 Potassium 3.9 Carbon Dioxide 43 H* Anion Gap 3.0 Creatinine 0.97 Est Cr Clr Drug Dosing 53.6 - Recent Pertinent Medications Outpatient Anti-diabetic Regimen: * Levemir 10 units HS, 6 units Novolog QDL, 2 units QDB * A1c = 7.2 % 03/01/19 The patient is currently receiving: * Basal insulin: Lantus per scale 0-10 units * Correctional Insulin: Novolog Correction per scale ACHS Goal Range: Low 140 mg/dL - High 180 mg/dL Correction Factor: 55 mg/dL/unit * Prandial insulin: Per carb ratio of 1 unit per 19 grams CHO consumed * Oral Agents: Risk Factors for Insulin Resistance: * Steroids: Methyprednisolone 40 q12H (decreased fro q8H on 05/24) * Diet: T2DM - Assessment & Plan Assessment & Plan: ASSESSMENT: * 83 yo male with pmh including COPD, chronic hypercapnic hypoxia on 4 L of oxygen at home, CYRIL, DM II, chronic diluaid pain pump, sz disorder * Presented to ER from [facility] with hypoxia/AMS-recent RSV * Patient was started on methyprednisolone inpatient with recent decrease from q8H to q12H * Patient's BSGs were controlled, 05/24 BSG elevated to 267 and has remained elevated * Patient's outpatient A1c 7.2% adequate given patient's age, indicating good outpatient control * Will tighten goal range, adjust CF/CR to stress of 2 weight based- steroids are tapering down * Will slightly increase lantus this evening PLAN FOR INPATIENT GLYCEMIC CONTROL: * Basal insulin * Lantus 10 units BSG <140 * 15 units BSG >140 * Bolus insulin * NovoLog per scale ACHS or Q6hrs while NPO * Goal Range: Low 120 mg/dL - High 160 mg/dL * Correction Factor: 35 mg/dL/unit * Nutritional / Prandial insulin per carb ratio of 1 unit per 11 grams CHO consumed * Please note that the plan above was derived based on current level of insulin resistance and hospital stress. These recommendations are appropriate for inpatient admission only. Plan of care upon discharge will need to be reassessed to avoid potential outpatient hypo/hyperglycemia. Thank you.
--- NOTE | 2018-05-25 14:06 | Cardiology Progress Note ---
Date of Service May 25, 2018 Assessment & Plan (1) Respiratory failure, acute and chronic: (2) CO2 retention: (3) CHF exacerbation: Tolerated increase in IV furosemide to 40 mg IV daily well. Will continue. Increase activity as tolerated. Anticipate need for SNF level care. SQ lovenox 40 daily for DVT prophylaxis. Subjective Chief complaint: Follow-up shortness of breath Subjective: Patient sitting in the bedside chair. He feels perhaps marginally improved today. Telemetry reveals sinus rhythm . Physical Exam Vital Signs (Past 24 Hours): Last Vital Signs Temp 36.9 C 05/25/18 11:41 Pulse 70 05/25/18 11:41 Resp 19 05/25/18 11:41 BP 140/68 05/25/18 11:41 Pulse Ox 90 05/25/18 11:41 Physical Exam: General: Chronically ill in appearance, no acute distress Eyes: conjunctiva are pink and non-injected, sclera clear Chest: normal shape and normal respiratory effort Lungs: Creased breath sounds bilaterally at the bases Cardiac Exam: - regular heart sounds, 2/6 systolic murmur Abdomen: abdomen soft, non-tender, no abnormal masses and no hepatosplenomegaly Extremities: no edema and no cyanosis Neuro:awake, coversant, follows commands, no focal motor deficits Results & Data Laboratory Results CBC 05/25/18 Range/Units 09:49 WBC 3.56 L (4.8-10.8) K/uL RBC 5.46 (4.7-6.1) M/uL Hgb 13.5 L (14.0-18.0) g/dL Hct 45.1 (42-52) % Plt Count 150 (130-400) K/uL Comprehensive Metabolic Panel 05/25/18 Range/Units 09:49 Sodium 134 L (136-145) mmol/L Potassium 3.9 (3.5-5.1) mmol/L Chloride 88 L (98-107) mmol/L Carbon Dioxide 43 H* (21-32) mmol/L BUN 35 H (7-18) mg/dl Creatinine 0.97 (0.6-1.4) mg/dl Glucose 254 H (70-99) mg/dl Calcium 8.5 (8.5-10.1) mg/dl Intake and Output 05/24/18 05/25/18 05/25/18 22:59 06:59 14:59 Intake Total 355 / 1420 250 / 1420 105 / 105 Output Total 375 / 1700 375 / 1700 Balance -20 / -280 -125 / -280 105 / 105 Intake: IV 105 / 320 105 / 105 Keppra 500 mg In D5 100 ml @ 105 / 210 105 / 105 420 mls/hr IV Q12H [facility] Rx#: [id number] Oral 250 / 1100 250 / 1100 Output: Urine Amount (Catheter) 375 / 1700 375 / 1700 [place]/Indwelling 375 / 1700 375 / 1700 Other: Weight 68.1 kg 68.1 kg Patient Weight 05/26/18 06:59 Weight 68.1 kg Medications Administered Current Inpatient Medications Acetaminophen (Tylenol) 650 mg PO Q4H PRN PRN Reason: Pain or Fever Stop: 06/21/18 16:38 Last Admin: 05/23/18 20:37 Dose: 650 mg Documented by: Albuterol (Duoneb) 3 ml NEB QIDR PRN PRN Reason: SOB/wheezing Stop: 06/21/18 16:38 Aspirin (Ecotrin Ectab) 81 mg PO QAM [facility] Stop: 06/22/18 08:59 Last Admin: 05/25/18 08:23 Dose: 81 mg Documented by: Dextrose (Dextrose 50%) 25 - 50 ml IV UD PRN; Protocol PRN Reason: Hypoglycemia Protocol Stop: 06/21/18 16:38 Doxycycline Hyclate (Vibramycin) 100 mg PO Q12H [facility] Stop: 06/01/18 05:59 Last Admin: 05/25/18 06:03 Dose: 100 mg Documented by: Enoxaparin Sodium (Lovenox) 40 mg SQ QAM [facility] Stop: 06/23/18 08:59 Last Admin: 05/25/18 08:22 Dose: 40 mg Documented by: Finasteride (Proscar) 5 mg PO QAM [facility] Stop: 06/22/18 08:59 Last Admin: 05/25/18 08:21 Dose: 5 mg Documented by: Gabapentin (Neurontin) 100 mg PO TID [facility] Stop: 06/23/18 08:59 Last Admin: 05/25/18 13:56 Dose: 100 mg Documented by: Glucagon (Glucagen) 1 mg SQ UD PRN; Protocol PRN Reason: Hypoglycemia Protocol Stop: 06/21/18 16:38 Glucose (Glucose 40%) 15 - 30 gm PO UD PRN; Protocol PRN Reason: Hypoglycemia Protocol Stop: 06/21/18 16:38 Glucose (Dex4 Glucose) 4 - 8 tabs PO UD PRN; Protocol PRN Reason: Hypoglycemia Protocol Stop: 06/21/18 16:38 Levetiracetam 500 mg/ Dextrose 105 mls @ 420 mls/hr IV Q12H [facility] Stop: 06/21/18 20:29 Last Infusion: 05/25/18 08:40 Dose: Infused Documented by: Methylprednisolone 40 mg/ (Syringe) 0.64 mls @ 1.5 mls/min IV Q12 [facility] Stop: 06/23/18 20:59 Last Admin: 05/25/18 08:22 Dose: 1.5 mls/min Documented by: Furosemide 40 mg/ Syringe 4 mls @ 4 mls/min IV [id number] [facility] Stop: 06/24/18 06:59 Last Admin: 05/25/18 13:56 Dose: 4 mls/min Documented by: Insulin Aspart (Novolog Flexpen) 0 units SC ACHS [facility] Stop: 06/22/18 20:59 Last Admin: 05/25/18 12:18 Dose: 2 units Documented by: Insulin Glargine (Lantus Solostar Pen) 0 units SC BID [facility]; Protocol Stop: 06/21/18 20:59 Magnesium Oxide (Mag-Ox) 400 mg PO QAM [facility] Stop: 06/22/18 08:59 Last Admin: 05/25/18 08:23 Dose: 400 mg Documented by: Miscellaneous (Order Awaiting Action) 1 ea N/A QS [facility] Stop: 06/21/18 17:14 Last Admin: 05/25/18 08:01 Dose: Not Given Documented by: Miscellaneous (Carbohydrates For Hypoglycemia) 15 - 30 gm PO UD PRN PRN Reason: Hypoglycemia Treatment Stop: 06/21/18 16:38 Miscellaneous Information (Consult Glycemic Management Pharmacy) 1 ea N/A UD PRN PRN Reason: Consult Stop: 06/24/18 10:51 Ondansetron HCl (Zofran) 4 mg IV Q8 [facility] Stop: 06/23/18 07:14 Last Admin: 05/25/18 13:56 Dose: 4 mg Documented by: Polyethylene Glycol (Miralax Powder Packet) 17 gm PO DAILY PRN PRN Reason: Constipation Stop: 06/21/18 16:38 Pravastatin Sodium (Pravachol) 40 mg PO HS [facility] Stop: 06/21/18 20:59 Last Admin: 05/24/18 20:49 Dose: 40 mg Documented by: Sodium Chloride (M[place]racken Nasal) 1 sprays NA PRN PRN PRN Reason: Dryness Stop: 06/24/18 12:15 (1) CHF exacerbation Heart failure type: unspecified Qualified Code(s): I50.9 - Heart failure, unspecified
--- NOTE | 2018-05-25 14:49 | Progress Note ---
DATE: 05/25/2018 PULMONARY PROGRESS NOTE TIME: 1:30. SUBJECTIVE: The patient remains a poor historian. He did refuse BiPAP last night. The patient states that it makes him feel like he cannot breathe. He has had episodes today of severe oxygen desaturations with minimal exertion. Physical therapy came to work with him and soon thereafter, his oxygen levels had gone down into the 70s. Later on, nursing reported his sats actually went into the 60s for a period of time. They had to put an OxyMask on for a while. Now, he is back to just a nasal cannula. The patient does not seem to be coughing as much as prior. OBJECTIVE: GENERAL: The patient appeared comfortable. He was sitting up. He was alert. VITAL SIGNS: Temperature is 36.9. There have been no fevers in the past 24 hours. Heart rate was 70 per minute. Rhythm is regular. Blood pressure 140/68. Systolic murmur grade 2/6 heard along the left sternal border. LUNGS: Lung manuel revealed mild rhonchi bilaterally. These have decreased compared with yesterday. The breath sounds on the left were slightly tubular in the lower lung manuel. Saturation was 90% on 4 liter OxyMask. EXTREMITIES: Legs show no change in the brawny skin discoloration, but they are without edema. LABORATORY DATA: White count today is low at 3.56. Hemoglobin 13.5. Platelets 150,000. Electrolytes show sodium 134, potassium 3.9, chloride 88, bicarbonate 43. BUN 35 with a creatinine of 0.97. IMPRESSION: 1. Respiratory failure - acute on chronic with hypoxia and hypercarbia. 2. Congestive heart failure. 3. Bilateral pleural effusions. 4. Pneumonitis. 5. Pulmonary hypertension. COMMENTS AND RECOMMENDATIONS: The patient did have an echo done 05/23 that showed moderately reduced right ventricular systolic function. Moderate pulmonary hypertension was noted. These changes have worsened compared with 03/01/2018. He has moderate to severe mitral regurgitation. The patient has obviously very severe respiratory failure and he is unable to tolerate BiPAP. For the most part, he seems stable. I believe we can change the methylprednisolone to prednisone. Would continue to encourage the patient to wear the BiPAP, but I am fairly certain he is not going to do this. With the patient's respiratory failure, I believe he should have his nebulizer treatments on a regular basis rather than p.r.n. He does not appear to be getting any. I would much prefer unless there is a complication that he be getting some treatments 3-4 times per day. This is just an attempt to try and maximize his respiratory status as much as possible. I agree with having a swallow evaluation. Reportedly, he definitely coughs when he is eating and recurring aspiration could be an additional problem.
--- NOTE | 2018-05-25 15:48 | Hospitalist Progress Note ---
Date of Service May 25, 2018 Assessment & Plan (1) Respiratory failure, acute and chronic: 2/2 COPD exacerbation and CHF exacerbation. Patient intolerant of BiPAP overnight, frequent desaturation. Appears improved. Cont BIPAP, supplemental oxygen, Steroids, doxy, nebs. Noted that the patient had a recent RSV infection. (2) CHF exacerbation: as above. Severe mitral valve insufficiency present. Cont sodium restricted diet. (3) Elevated troponin: Troponin trend is flat without elevation making this appear to be more consistent with demand ischemia. No acute EKG changes and no chest pain rep orted. RV systolic function is reduced on echo but there are no acute wall motion abnormalities (4) History of pulmonary embolism: H/O PE 02/2018. IVC filter reported to be denied at that time. Pt was not discharged on anticoagulants secondary to fall risk, hx subdural hematoma -No PE on repeat CTA. (5) Diabetes mellitus, type II: A1c: 7.2 on 02/2018 -hold metformin -Novolog Lantus sliding scale per protocol -Monitor BSGs-currently at goal. (6) PVD (peripheral vascular disease): H/O fem pop bypass in past (7) H/O: CVA (cerebrovascular accident): Also hx traumatic subdural hematoma -CT Head without acute changes (8) CYRIL (obstructive sleep apnea): intolerant of BIPAP or CPAP (9) Dementia: no delirium, he is alert and appropriate. He is requesting to go home. (10) Chronic back pain: Secondary to post laminectomy syndrome Intrathecal pump-Dilaudid Cont gabapentin (11) Epilepsy: -Continue Keppra (12) DVT prophylaxis: Lovenox. DNR Dispo-cont telemetry monitoring for now. DO Joaquim Galarza Hospitalist Subjective denies pain reports breathing is improved since admission tolerating PO asking to go home. intolerant of BIPAP Physical Exam Vital Signs (Past 24 Hours): Last Vital Signs Temp 36.9 C 05/25/18 11:41 Pulse 70 05/25/18 11:41 Resp 19 05/25/18 11:41 BP 140/68 05/25/18 11:41 Pulse Ox 90 05/25/18 11:41 CONSTITUTIONAL: elderly, frail, vitals as above, generally well-appearing EYES: normal conjuctivae, no scleral icterus NECK: trachea midline, no lymphadenopathy, normal thyroid RESPIRATORY: CTAB, normal respiratory effort CARDIOVASCULAR: regular rate and rhythm, S1 and 2 heard without murmurs, gallops or rubs, no JVD, no peripheral edema GASTROINTESTINAL: normal bowel sounds, soft, nontender, nondistended MUSCULOSKELETAL: generalized weakness SKIN: warm and dry Neuro: alert and cooperative, oriented to person and place. Understands why he is here but has a difficult time articulating this. Results & Data Laboratory Results Short CBC 05/25/18 Range/Units 09:49 WBC 3.56 L (4.8-10.8) K/uL Hgb 13.5 L (14.0-18.0) g/dL Hct 45.1 (42-52) % Plt Count 150 (130-400) K/uL BMP 05/25/18 09:49 Sodium 134 L Potassium 3.9 Chloride 88 L Carbon Dioxide 43 H* BUN 35 H Creatinine 0.97 Glucose 254 H Calcium 8.5 Medications Administered Current Inpatient Medications Acetaminophen (Tylenol) 650 mg PO Q4H PRN PRN Reason: Pain or Fever Stop: 06/21/18 16:38 Last Admin: 05/23/18 20:37 Dose: 650 mg Documented by: Albuterol (Duoneb) 3 ml NEB QIDR PRN PRN Reason: SOB/wheezing Stop: 06/21/18 16:38 Aspirin (Ecotrin Ectab) 81 mg PO QAM [facility] Stop: 06/22/18 08:59 Last Admin: 05/25/18 08:23 Dose: 81 mg Documented by: Dextrose (Dextrose 50%) 25 - 50 ml IV UD PRN; Protocol PRN Reason: Hypoglycemia Protocol Stop: 06/21/18 16:38 Doxycycline Hyclate (Vibramycin) 100 mg PO Q12H [facility] Stop: 06/01/18 05:59 Last Admin: 05/25/18 06:03 Dose: 100 mg Documented by: Enoxaparin Sodium (Lovenox) 40 mg SQ QAM [facility] Stop: 06/23/18 08:59 Last Admin: 05/25/18 08:22 Dose: 40 mg Documented by: Finasteride (Proscar) 5 mg PO QAM [facility] Stop: 06/22/18 08:59 Last Admin: 05/25/18 08:21 Dose: 5 mg Documented by: Gabapentin (Neurontin) 100 mg PO TID [facility] Stop: 06/23/18 08:59 Last Admin: 05/25/18 13:56 Dose: 100 mg Documented by: Glucagon (Glucagen) 1 mg SQ UD PRN; Protocol PRN Reason: Hypoglycemia Protocol Stop: 06/21/18 16:38 Glucose (Glucose 40%) 15 - 30 gm PO UD PRN; Protocol PRN Reason: Hypoglycemia Protocol Stop: 06/21/18 16:38 Glucose (Dex4 Glucose) 4 - 8 tabs PO UD PRN; Protocol PRN Reason: Hypoglycemia Protocol Stop: 06/21/18 16:38 Levetiracetam 500 mg/ Dextrose 105 mls @ 420 mls/hr IV Q12H [facility] Stop: 06/21/18 20:29 Last Infusion: 05/25/18 08:40 Dose: Infused Documented by: Methylprednisolone 40 mg/ (Syringe) 0.64 mls @ 1.5 mls/min IV Q12 [facility] Stop: 06/23/18 20:59 Last Admin: 05/25/18 08:22 Dose: 1.5 mls/min Documented by: Furosemide 40 mg/ Syringe 4 mls @ 4 mls/min IV [id number] [facility] Stop: 06/24/18 06:59 Last Admin: 05/25/18 13:56 Dose: 4 mls/min Documented by: Insulin Aspart (Novolog Flexpen) 0 units SC ACHS [facility] Stop: 06/22/18 20:59 Last Admin: 05/25/18 12:18 Dose: 2 units Documented by: Insulin Glargine (Lantus Solostar Pen) 0 units SC BID [facility]; Protocol Stop: 06/21/18 20:59 Magnesium Oxide (Mag-Ox) 400 mg PO QAM [facility] Stop: 06/22/18 08:59 Last Admin: 05/25/18 08:23 Dose: 400 mg Documented by: Miscellaneous (Order Awaiting Action) 1 ea N/A QS [facility] Stop: 06/21/18 17:14 Last Admin: 05/25/18 15:24 Dose: Not Given Documented by: Miscellaneous (Carbohydrates For Hypoglycemia) 15 - 30 gm PO UD PRN PRN Reason: Hypoglycemia Treatment Stop: 06/21/18 16:38 Miscellaneous Information (Consult Glycemic Management Pharmacy) 1 ea N/A UD PRN PRN Reason: Consult Stop: 06/24/18 10:51 Ondansetron HCl (Zofran) 4 mg IV Q8 [facility] Stop: 06/23/18 07:14 Last Admin: 05/25/18 13:56 Dose: 4 mg Documented by: Polyethylene Glycol (Miralax Powder Packet) 17 gm PO DAILY PRN PRN Reason: Constipation Stop: 06/21/18 16:38 Pravastatin Sodium (Pravachol) 40 mg PO HS [facility] Stop: 06/21/18 20:59 Last Admin: 05/24/18 20:49 Dose: 40 mg Documented by: Sodium Chloride (Wilmer Nasal) 1 sprays NA PRN PRN PRN Reason: Dryness Stop: 06/24/18 12:15 (1) CHF exacerbation Heart failure type: unspecified Qualified Code(s): I50.9 - Heart failure, unspecified
[2018-05-25] MEDS: ALBUT/IPRATROP 3MG/0.5MG NEB 3 ML VIAL NEB SCH (19:02)
[2018-05-25] MEDS: PRAVASTATIN SOD 40 MG TAB PO SCH (20:24)
[2018-05-26] MEDS: INSULIN ASPART 100 UNITS/ML 3 ML PEN SC SCH ×6 (00:17→21:09)
[2018-05-26] MEDS ORDERED: POTASSIUM CHLORIDE 20 MEQ TABCR PO STA (05:22)
--- NOTE | 2018-05-26 05:37 | Hospitalist Progress Note ---
Date of Service May 26, 2018 Subjective Made aware by RN of 7 beat run of VT around 5 AM. Patient asymptomatic and sleeping as per RN. AP NSVT Initiate low-dose beta-chava to suppress arrhythmia (Home Atenolol/Metoprolol stopped in 2006 due to patient preference as per outpatient records.) Check electrolytes Will relay to AM provider. Physical Exam Vital Signs (Past 24 Hours): Last Vital Signs Temp 36.5 C 05/26/18 03:55 Pulse 67 05/26/18 03:55 Resp 15 05/26/18 03:55 BP 127/66 05/26/18 03:55 Pulse Ox 97 05/26/18 03:55
[2018-05-26 05:39] LABS: Eosinophils # (auto) 0.01 K/uL (0-0.5); Eosinophils % (auto) 0.2 %; Hematocrit (blood only) 42.9 % (42-52); Hemoglobin 12.8 g/dL (14.0-18.0); Immature Granulocytes # (auto) 0.01 K/uL (0.00-0.02); Immature Granulocytes % (auto) 0.2 %; Lymphocytes # (auto) 1.22 K/uL (1.2-3.4); Lymphocytes % (auto) 19.3 %; Mean Corpuscular Hgb Conc 29.8 g/dL (32-36); Mean Corpuscular Volume 82.2 fL (80-100); Mean Platelet Volume 9.8 fL (7.4-10.4); Monocytes # (auto) 0.65 K/uL (0.11-0.59); Monocytes % (auto) 10.3 %; Neutrophils # (auto) 4.44 K/uL (1.4-6.5); Platelet Count 140 K/uL (130-400); RDW Coefficient of Variation 15.9 % (11.5-14.5); RDW Standard Deviation 47.8 fL (36.4-46.3); Red Blood Count 5.22 M/uL (4.7-6.1); White Blood Count 6.33 K/uL (4.8-10.8)
[2018-05-26] MEDS: METOPROLOL TARTRATE 25 MG TAB PO SCH ×2 (06:12→21:07)
[2018-05-26] MEDS: DOXYCYCLINE HYCLATE 100 MG CAP PO SCH ×2 (06:14→17:26)
[2018-05-26] MEDS: ONDANSETRON INJ 2 MG/ML 2 ML VIAL IV SCH ×3 (06:14→21:08)
[2018-05-26 06:19] LABS: BUN Creatinine Ratio 47.6 (10-20); Creatinine Clr Calc Pharmacy 57.2 ml/min; Est GFR (African American) 90.4; Magnesium 1.6 mg/dl (1.8-2.4); Potassium 3.8 mmol/L (3.5-5.1)
[2018-05-26] MEDS: MAGNESIUM SULFATE / D5W 1 GM/100 ML BAG IV SCH ×4 (07:02→11:15)
[2018-05-26] MEDS: ALBUT/IPRATROP 3MG/0.5MG NEB 3 ML VIAL NEB SCH ×4 (07:07→19:09)
[2018-05-26] MEDS: INSULIN GLARGINE SOLOSTAR 100 UNITS/ML 3 ML PEN SC SCH ×2 (08:17→21:05)
[2018-05-26] MEDS: FUROSEMIDE 40 MG in SYRINGE 0 ML IV SCH ×2 (08:19→14:07)
[2018-05-26] MEDS: FINASTERIDE 5 MG TAB PO SCH (08:20)
[2018-05-26] MEDS: GABAPENTIN 100 MG CAP PO SCH ×3 (08:20→21:07)
[2018-05-26] MEDS: ENOXAPARIN INJ 40 MG/0.4 ML SYR SQ SCH (08:20)
[2018-05-26] MEDS: predniSONE 20 MG TAB PO SCH (08:20)
[2018-05-26] MEDS: MAGNESIUM OXIDE 400 MG TAB PO SCH (08:21)
[2018-05-26] MEDS: ASPIRIN 81 MG ECTAB PO SCH (08:21)
[2018-05-26 08:24] LABS: Allen Test Pos (Pos); HCO3 ABG 45 mmol/L (19-24); Oxygen Saturation ABG 95.3 % (90-95); PCO2 ABG 71 mmHg (35-46); PO2 ABG 79 mm/Hg (80-95); pH ABG 7.42 (7.35-7.45)
--- NOTE | 2018-05-26 08:55 | XRay Report ---
XR chest 1V portable CLINICAL HISTORY: hypercarbia/hypoxia persistent COMPARISON STUDY: Chest radiograph and chest CT May 22, 2018. FINDINGS: Moderate cardiomegaly is noted. Small bilateral pleural effusions with bibasilar opacities persist. There is persistent interstitial thickening suggestive of pulmonary edema. There is no pneum othorax. Patient is mildly rotated. IMPRESSION: 1. Interval increase in pulmonary edema. 2. Persistent bilateral pleural effusions and bibasilar opacities which may reflect pneumonia or atel ectasis. Electronically signed by: Stan Patterson M.D. 05/26/2018 8:54 AM
--- NOTE | 2018-05-26 09:51 | Progress Note ---
DATE: 05/26/2018 PULMONARY PROGRESS NOTE TIME: 9:10 a.m. SUBJECTIVE: The patient denies complaints other than not liking the food. He denies significant shortness of breath. He indicates he is anxious to go back home. He refused BiPAP again last night. OBJECTIVE: GENERAL: The patient was sleeping when I came into the room, but aroused fairly readily. He was in no distress. He is extremely hard of hearing. VITAL SIGNS: Temperature is 36.6. HEART: Heart rate is 67 per minute. Rhythm is regular with an occasional extrasystole. Nursing reports that he did have a 7-beat run of V-tach. Blood pressure 112/68. Systolic murmur grade 2/6 heard. LUNGS: Auscultation reveals tubular breath sounds in the left lower lung field. Overall, the breath sounds are diminished bilaterally. No rhonchi was heard on this date. Saturation earlier was 95% on a 5-liter OxyMask. Currently, he is on nasal cannula. Output for the prior 24 hours was 2875. This was a net balance of -1.98 liters. EXTREMITIES: Showed no cyanosis, clubbing or edema. Color changes were again noted in the lower extremities. IMAGING DATA: Chest x-ray done today was a portable. It suggests perhaps increasing pulmonary edema. There appeared to be likewise perhaps increased pleural effusions bilaterally. It is not clear, however, that the patient was done at full inspiration. I suspect it likely was not. LABORATORY DATA: White count today is 6.33, compared with yesterday 3.56. Hemoglobin 12.8. Platelets 140,000. Blood gas this morning showed pH 7.42, pCO2 of 71, pO2 of 79 done on 5 liters. This is similar to the prior done 05/23/2018. This reflects a compensated respiratory acidosis. Electrolytes showed sodium 137, potassium 3.8, chloride 89, bicarbonate 50. The bicarbonate does keep rising. The prior CO2 on the electrolytes was 43. Magnesium was low at 1.6. Blood sugar this morning 104. IMPRESSION: 1. Respiratory failure - acute on chronic with hypoxia and hypercarbia. 2. Congestive heart failure. 3. Bilateral pleural effusions. 4. Pneumonitis. 5. Pulmonary hypertension. COMMENTS AND RECOMMENDATIONS: The case was discussed with Dr. Reid and Dr. Belle. From a pulmonary perspective, I do not believe there is much to be done. Unfortunately, the patient continues to refuse his BiPAP. He has been on DuoNeb treatments. It is possible the albuterol is contributing to his arrhythmia. Would suggest changing to levalbuterol 0.63 plus ipratropium every 6-8 hours. Otherwise, would continue from a pulmonary perspective. Prognosis is obviously poor. Dr. Belle discussed the problem with his mitral regurgitation. He was considering adjusting the patient's furosemide.
--- NOTE | 2018-05-26 12:07 | Fluoroscopy Report ---
FL video swallow HISTORY: Hypoxia. Aspiration. TECHNIQUE: Video fluoroscopic evaluation of swallowing was performed in the AP and lateral projection s by the speech pathology staff. The patient is fed nectar-thick and thin liquid barium, and barium p udding. FLUOROSCOPY TIME: 0.7 minutes. NUMBER OF FLUOROSCOPY IMAGES: 0 COMPARISON STUDY: None. FINDINGS: There was silent aspiration when taking thin liquid barium. There was silent aspiration whe n drinking nectar thick liquids. There is silent aspiration when swallowing pudding. IMPRESSION: 1. Solid aspiration when swallowing thin liquids, nectar thick liquids, and pudding. 2. Please see the speech pathologist report for detailed findings and recommendations. Electronically signed by: Edgardo Nina M.D. 05/26/2018 12:05 PM
--- NOTE | 2018-05-26 12:55 | Hospitalist Progress Note ---
Date of Service May 26, 2018 Assessment & Plan (1) Respiratory failure, acute and chronic: 2/2 COPD exacerbation and CHF exacerbation. Patient intolerant of BiPAP overnight, frequent desaturation. CO2 on blood work noted to be 50 this morning. ABG confirmed PCO2 of 70. Appears improved. Cont BIPAP, supplemental oxygen, Steroids, doxy, nebs. Lasix decreased to 40 mg IV daily. Noted that the patient had a recent RSV infection. (2) CHF exacerbation: as above. Severe mitral valve insufficiency present. Cont sodium restricted diet. (3) Demand ischemia: Troponin trend is flat without elevation making this appear to be more consistent with demand ischemia. No acute EKG changes and no chest pain reported. RV systolic function is reduced on echo but there are no acute wall motion abnormalities. Valvular disease present and contributing. (4) History of pulmonary embolism: H/O PE 02/2018. IVC filter reported to be denied at that time. Pt was not discharged on anticoagulants secondary to fall risk, hx subdural hematoma -No PE on repeat CTA. (5) Diabetes mellitus, type II: A1c: 7.2 on 02/2018 -hold metformin -Novolog Lantus sliding scale per protocol -Monitor BSGs-currently at goal. (6) PVD (peripheral vascular disease): H/O fem pop bypass in past (7) H/O: CVA (cerebrovascular accident): Also hx traumatic subdural hematoma -CT Head without acute changes (8) CYRIL (obstructive sleep apnea): intolerant of BIPAP or CPAP (9) Dementia: no delirium, he is alert and appropriate. He is requesting to go home. (10) Chronic back pain: Secondary to post laminectomy syndrome Intrathecal pump-Dilaudid Cont gabapentin (11) Epilepsy: -Continue Keppra (12) DVT prophylaxis: Lovenox. DNR Dispo-cont telemetry monitoring for now. Anabella Reid DO [facility] Hospitalist Subjective Patient is doing well overnight. He denies any issues with breathing. He is asking to go home. Nurses report that every time they draw blood, or perform blood sugar checks, or changes position he reports that he wants to go home and does not want any more of this. At this point he is end-stage lung disease and is not tolerating BiPAP which is the only treatment to improve his current situation. He is alert and appropriate and this is his choice, however, this may lead to his ultimate demise. This was discussed with his daughter Sonia by phone today in addition to options regarding hospice care when he returns to [facility]. However, she is not ready to make that decision and would like to have more conversations with him about this. We decided to discuss things further together as a group tomorrow when she visits. It is noted that he has had 3 recurring hospitalizations for the same issue, acute respiratory failure secondary to hypercarbia and hypoxia, over the last 3 months. Physical Exam Vital Signs (Past 24 Hours): Last Vital Signs Temp 36.8 C 05/26/18 12:22 Pulse 81 05/26/18 12:22 Resp 18 05/26/18 12:22 BP 99/61 L 05/26/18 12:22 Pulse Ox 85 L 05/26/18 12:22 CONSTITUTIONAL: elderly, frail, vitals as above, generally well-appearing EYES: normal conjuctivae, no scleral icterus RESPIRATORY: CTAB, normal respiratory effort CARDIOVASCULAR: regular rate and rhythm, S1 and 2 heard without murmurs, gallops or rubs, no JVD, no peripheral edema GASTROINTESTINAL: soft, nontender, nondistended MUSCULOSKELETAL: generalized weakness SKIN: warm and dry Neuro: alert and cooperative, oriented to person and place. Results & Data Laboratory Results Short CBC 05/26/18 Range/Units 05:29 WBC 6.33 (4.8-10.8) K/uL Hgb 12.8 L (14.0-18.0) g/dL Hct 42.9 (42-52) % Plt Count 140 (130-400) K/uL BMP 05/26/18 05:29 Sodium 137 Potassium 3.8 Chloride 89 L Carbon Dioxide 50 H* BUN 43 H Creatinine 0.89 Glucose 115 H Calcium 8.0 L Medications Administered Current Inpatient Medications Acetaminophen (Tylenol) 650 mg PO Q4H PRN PRN Reason: Pain or Fever Stop: 06/21/18 16:38 Last Admin: 05/23/18 20:37 Dose: 650 mg Documented by: Albuterol (Duoneb) 3 ml NEB QIDR PRN PRN Reason: SOB/wheezing Stop: 06/21/18 16:38 Albuterol (Duoneb) 3 ml NEB QIDR [facility] Stop: 06/24/18 19:59 Last Admin: 05/26/18 11:06 Dose: 3 ml Documented by: Aspirin (Ecotrin Ectab) 81 mg PO QAM [facility] Stop: 06/22/18 08:59 Last Admin: 05/26/18 08:21 Dose: 81 mg Documented by: Dextrose (Dextrose 50%) 25 - 50 ml IV UD PRN; Protocol PRN Reason: Hypoglycemia Protocol Stop: 06/21/18 16:38 Doxycycline Hyclate (Vibramycin) 100 mg PO Q12H [facility] Stop: 06/01/18 05:59 Last Admin: 05/26/18 06:14 Dose: 100 mg Documented by: Enoxaparin Sodium (Lovenox) 40 mg SQ QAM [facility] Stop: 06/23/18 08:59 Last Admin: 05/26/18 08:20 Dose: 40 mg Documented by: Finasteride (Proscar) 5 mg PO QAM [facility] Stop: 06/22/18 08:59 Last Admin: 05/26/18 08:20 Dose: 5 mg Documented by: Gabapentin (Neurontin) 100 mg PO TID [facility] Stop: 06/23/18 08:59 Last Admin: 05/26/18 08:20 Dose: 100 mg Documented by: Glucagon (Glucagen) 1 mg SQ UD PRN; Protocol PRN Reason: Hypoglycemia Protocol Stop: 06/21/18 16:38 Glucose (Glucose 40%) 15 - 30 gm PO UD PRN; Protocol PRN Reason: Hypoglycemia Protocol Stop: 06/21/18 16:38 Glucose (Dex4 Glucose) 4 - 8 tabs PO UD PRN; Protocol PRN Reason: Hypoglycemia Protocol Stop: 06/21/18 16:38 Levetiracetam 500 mg/ Dextrose 105 mls @ 420 mls/hr IV Q12H [facility] Stop: 06/21/18 20:29 Last Infusion: 05/26/18 10:29 Dose: Infused Documented by: Furosemide 40 mg/ Syringe 4 mls @ 4 mls/min IV [id number] [facility] Stop: 06/24/18 06:59 Last Admin: 05/26/18 08:19 Dose: 4 mls/min Documented by: Insulin Aspart (Novolog Flexpen) 0 units SC ACHS [facility] Stop: 06/22/18 20:59 Last Admin: 05/26/18 12:42 Dose: 3 units Documented by: Insulin Glargine (Lantus Solostar Pen) 0 units SC BID [facility]; Protocol Stop: 06/21/18 20:59 Last Admin: 05/26/18 08:17 Dose: 10 units Documented by: Magnesium Oxide (Mag-Ox) 400 mg PO QAM [facility] Stop: 06/22/18 08:59 Last Admin: 05/26/18 08:21 Dose: 400 mg Documented by: Metoprolol Tartrate (Lopressor) 12.5 mg PO BID [facility] Stop: 06/25/18 05:39 Last Admin: 05/26/18 06:12 Dose: 12.5 mg Documented by: Miscellaneous (Order Awaiting Action) 1 ea N/A QS [facility] Stop: 06/21/18 17:14 Last Admin: 05/26/18 07:56 Dose: Not Given Documented by: Miscellaneous (Carbohydrates For Hypoglycemia) 15 - 30 gm PO UD PRN PRN Reason: Hypoglycemia Treatment Stop: 06/21/18 16:38 Miscellaneous Information (Consult Glycemic Management Pharmacy) 1 ea N/A UD PRN PRN Reason: Consult Stop: 06/24/18 10:51 Ondansetron HCl (Zofran) 4 mg IV Q8 [facility] Stop: 06/23/18 07:14 Last Admin: 05/26/18 06:14 Dose: 4 mg Documented by: Polyethylene Glycol (Miralax Powder Packet) 17 gm PO DAILY PRN PRN Reason: Constipation Stop: 06/21/18 16:38 Pravastatin Sodium (Pravachol) 40 mg PO HS [facility] Stop: 06/21/18 20:59 Last Admin: 05/25/18 20:24 Dose: 40 mg Documented by: Prednisone (Prednisone) 40 mg PO DAILY [facility] Stop: 06/25/18 08:59 Last Admin: 05/26/18 08:20 Dose: 40 mg Documented by: Sodium Chloride (Hundred Nasal) 1 sprays NA PRN PRN PRN Reason: Dryness Stop: 06/24/18 12:15 (1) CHF exacerbation Heart failure type: unspecified Qualified Code(s): I50.9 - Heart failure, unspecified
--- NOTE | 2018-05-26 12:55 | Pharmacy Report ---
Pharmacy Glycemic Short Note 2 - Date of Service May 26, 2018 - Glycemic Short BSG Results (Last 24 hours): 05/25/18 05/25/18 05/25/18 11:28 16:08 19:57 Glucose POC Glucose 205 H 260 H 304 H 05/26/18 05/26/18 05/26/18 00:15 03:55 05:29 Glucose 115 H POC Glucose 189 H 151 H 05/26/18 05/26/18 07:29 12:02 Glucose POC Glucose 104 H 150 H OUTPATIENT ANTIDIABETIC REGIMEN: * Levemir 10 units HS, 6 units Novolog QDL, 2 units QDB * Alc 7.2% 03/01/18 ASSESSMENT: * Patient received 41 units of insulin yesterday- 25 units of basal;16 units of correctional/prandial * Steroids tapered down to prednisone 40 mg daily * BSGs 104-151 today; continue current CF/CR * Slightly loosen lantus scale for this evening due to decrease in steroids PLAN FOR INPATIENT GLYCEMIC CONTROL: * Hold outpatient oral diabetes medications * Basal insulin * Lantus * 5 units BSG <160 * 10 units BSG >160 * Bolus insulin * NovoLog per scale ACHS or Q6hrs while NPO * Goal Range: Low 120 mg/dL - High 160 mg/dL * Correction Factor: 35 mg/dL/unit * Nutritional / Prandial insulin per carb ratio of 1 unit per 11 grams CHO consumed PLAN FOR DISCHARGE: * Patient's A1c of 7.2% adequate given patient's age, patient can likely continue home regimen if not having frequent hypo/hyperglycemic events.
--- NOTE | 2018-05-26 15:42 | Communication Note ---
Date of Service: May 26, 2018 I spoke with daughter Sonia and discussed with her options in light of his end- stage lung disease, noncompliance with BiPAP therapy, interested in going home, and chronic aspiration. She understands the likelihood of complications with all of the above and wants to work with me and the patient over the weekend to come to an understanding of what he might want with respect to possible hospice care when he goes back to [facility]. We will continue the conversation over the weekend. Franklin, DO
--- NOTE | 2018-05-26 18:59 | Cardiology Progress Note ---
Date of Service May 26, 2018 Assessment & Plan (1) Respiratory failure, acute and chronic: (2) CO2 retention: (3) CHF exacerbation: Multifactorial respiratory insufficiency. Diuresing with current dose of furosemide 40 mg IV every 24 hours. Arterial blood gas performed today revealed pH of 7.42, PCO2 of 71, PO2 of 79, bicarbonate 45. Case discussed with Dr. Laboy. I agreed that his respiratory status is very tenuous. Is difficult to perceive a plan would allow him to succeed outside of the hospital. Continue diuretic as tolerated. I do not think he is a candidate for mitral valve intervention. Prognosis is poor. Subjective Chief complaint follow-up shortness of breath Subjective: Patient sitting in bedside chair, he is kyphotic, coughs to clear his airways. Hard of hearing. Chronically ill in appearance. Vallejo catheter d raining clear yellow urine. Physical Exam Vital Signs (Past 24 Hours): Last Vital Signs Temp 36.8 C 05/26/18 15:10 Pulse 72 05/26/18 17:57 Resp 20 05/26/18 15:25 BP 123/67 05/26/18 15:10 Pulse Ox 90 05/26/18 15:25 Constitutional: + ill appearing, + thin and + cachectic Respiratory: Coarse breath sounds noted throughout the bases Cardiovascular: Regular rhythm, 2/6 systolic murmur, no lower extremity edema Neurologic: Lethargic, no focal deficits (1) CHF exacerbation Heart failure type: unspecified Qualified Code(s): I50.9 - Heart failure, unspecified
[2018-05-26] MEDS: PRAVASTATIN SOD 40 MG TAB PO SCH (21:08)
[2018-05-27] MEDS: DOXYCYCLINE HYCLATE 100 MG CAP PO SCH (06:05)
[2018-05-27] MEDS: ONDANSETRON INJ 2 MG/ML 2 ML VIAL IV SCH (06:05)
[2018-05-27] MEDS: ALBUT/IPRATROP 3MG/0.5MG NEB 3 ML VIAL NEB SCH ×2 (07:04→11:01)
[2018-05-27] MEDS: predniSONE 20 MG TAB PO SCH (07:42)
[2018-05-27] MEDS: MAGNESIUM OXIDE 400 MG TAB PO SCH (07:43)
[2018-05-27] MEDS: ASPIRIN 81 MG ECTAB PO SCH (07:43)
[2018-05-27] MEDS: FINASTERIDE 5 MG TAB PO SCH (07:43)
[2018-05-27] MEDS: METOPROLOL TARTRATE 25 MG TAB PO SCH (07:49)
[2018-05-27] MEDS: ENOXAPARIN INJ 40 MG/0.4 ML SYR SQ SCH (07:49)
[2018-05-27] MEDS: GABAPENTIN 100 MG CAP PO SCH ×2 (07:50→12:09)
[2018-05-27 08:15] LABS: Hematocrit (blood only) 47.5 % (42-52); Hemoglobin 14.7 g/dL (14.0-18.0); Mean Corpuscular Hgb Conc 30.9 g/dL (32-36); Mean Corpuscular Volume 82.5 fL (80-100); Mean Platelet Volume 10.1 fL (7.4-10.4); Platelet Count 131 K/uL (130-400); RDW Coefficient of Variation 16.1 % (11.5-14.5); RDW Standard Deviation 48.4 fL (36.4-46.3); Red Blood Count 5.76 M/uL (4.7-6.1); White Blood Count 6.39 K/uL (4.8-10.8)
[2018-05-27 08:57] LABS: BUN Creatinine Ratio 41.4 (10-20); Calcium 8.4 mg/dl (8.5-10.1); Creatinine Clr Calc Pharmacy 59.8 ml/min; Est GFR (Non-African American) 80.2; Potassium 4.2 mmol/L (3.5-5.1)
[2018-05-27] MEDS ORDERED: FUROSEMIDE 40 MG in SYRINGE 0 ML IV SCH (09:00)
[2018-05-27] MEDS: INSULIN ASPART 100 UNITS/ML 3 ML PEN SC SCH ×2 (09:01→12:10)
[2018-05-27] MEDS: INSULIN GLARGINE SOLOSTAR 100 UNITS/ML 3 ML PEN SC SCH (09:02)
--- NOTE | 2018-05-27 10:57 | Communication Note ---
Date of Service: May 27, 2018 Spoke with daughter and son who are at bedside. When I arrived the patient was trying to aske them for his clothes so he could get out of here. He has req uested to go home for the last three days. We discussed goals here, and they are in agreement that future hospitalizations would be more harmful than good in the setting of his end-stage COPD and intolerance of BIPAP. His quality of life is paramount and the children agree to this. Case Management notified and will assist with transfer back to [facility] today and starting the process of Hospice at [facility]. Will send out with recommendations to continue BIPAP nightly, TID nebulizer therapy and will finish a course of prednisone and doxycycline. He will continue his daily hoem furosemide which is 20mg PO daily. Medications will be re-reviewed once he is in Hospice status, so will defer to primary care physician for this. DO Franklin
--- NOTE | 2018-05-27 11:14 | Discharge Summary ---
Date of Service May 27, 2018 Admission HPI Per Admitting Provider Pt is 83 y/o M with PMH chronic hypercapnic hypoxic respiratory failure on 4L oxygen NC (goal oxygen sats 88-92%), COPD, CYRIL(reported noncompliance with CPAP), DM II, chronic back pain on chronic Dilaudid pain pump, h/o subdural hematoma, seizure disorder, HTN, h/o DVT/PE, chronic anemia, BPH, dementia presented to ER from [facility] with complaint of hypoxia and altered mental status. Reported patient oxygen saturations 55% on room air and EMS placed patient on CPAP and gave DuoNeb in route. Patient with history recent RSV on 05/05/18 with increased respiratory distress and dyspnea with reported oxygen saturations mid 80s on 4 L oxygen. Patient was treated with steroids with reported improvement. Patient's daughter reports noticed increased shortness of breath and increased altered mental status and lethargy over the past couple of days. She states she was in to see patient yesterday and patient was lethargic however was alert and recognized her, did not recognize other disorders. She states has a chronic productive cough, does not think worsening. She reports was contacted last night and told patient oxygen sats were low. She also noticed increased bilateral hand swelling today. Daughter reports that skilled nursing staff reported pt with decreased oral intake past day. Hx hospitalization 02/25/18 at outside facility for L greater trochanter fracture and AMS and was transferred to [facility] 03/01/18- with dx encephalopathy thought secondary to proteus UTI and mental status had returned to baseline. Had acute PE was on lovenox in patient, not discharged on anticoagulation secondary to recurrent falls, h/o subdural hematoma. Hx hospitalization 03/19/18-03/22/18 Follows with [facility] pain management. Has dilaudid pain pump 0.6mg/day. Had pain pump refilled on 03/27/18, is to have refilled in May 2018. Today in ER patient afebrile, P: 103, R: 24, BP 142/71, 55% on room air up to 96% on BiPAP. Was given albuterol neb, Solu-Medrol 125 mg IV, Lasix 40 g IV. Admission Exam Per Admitting Provider General: chronic ill appearing elderly male, obtunded, on bipap Head: normocephalic, atraumatic Eyes: PERRL, conjunctiva non-injected, anicteric ENT: normal inspection external ears, nose, mucous membranes moist Neck: supple, trachea midline Lungs: On bipap, diminished, rhonchi CV: RRR, mild pretibial edema Abd: normal BS, soft, no apparent tenderness to palpation Ext: venous stasis changes bilateral lower legs, bilateral hands with edema Neuro: does not open eyes or follow commands Skin: warm, dry Principal Diagnosis Acute respiratory failure with hypoxia and hypercarbia Chronic hypoxemia 2/2 COPD Intolerance of BIPAP COPD exacerbation Acute diastolic CHF exacerbation Discharge Data Allergies Allergy/AdvReac Type Severity Reaction Status Date / Time Sulfa (Sulfonamide Allergy Intermediate Rash Verified 05/22/18 10:25 Antibiotics) sulfamethoxazole Allergy Intermediate Rash Verified 05/22/18 10:25 [From Bactrim] trimethoprim [From Bactrim] Allergy Intermediate Rash Verified 05/22/18 10:25 Cephalosporins Allergy Unknown UNKNOWN Verified 05/22/18 10:25 Consultations 05/22/18 12:05 ED Decision to Admit Stat 05/22/18 16:39 Consult Case Management - Discharge Planning Routine Consult Pulmonology Routine 05/24/18 07:09 Consult Cardiology Routine Ordered Studies 05/22/18 13:11 CT head/brain wo con Stat 05/22/18 13:33 CT angio chest PE protocol Stat 05/26/18 11:30 FL video swallow Routine Hospital Course (1) Respiratory failure, acute and chronic: (2) CHF exacerbation: (3) Elevated troponin: (4) History of pulmonary embolism: (5) Diabetes mellitus, type II: (6) PVD (peripheral vascular disease): (7) H/O: CVA (cerebrovascular accident): (8) CYRIL (obstructive sleep apnea): (9) Dementia: (10) Chronic back pain: (11) Epilepsy: 83-year-old man with end-stage COPD presented to the emergency room from [facility] with an episode of respiratory distress beginning the day prior. He was found to be hypoxic on 55% room air, slumped in a chair and unresponsive. He was started on BiPAP immediately upon arrival to the emergency department. Initial ABG reveals a PCO2 of 102 with a pH of 7.24. Troponin was elevated to 0.249 likely secondary to demand ischemia in the setting of heart failure and fluid overload. BiPAP did not significantly change his PCO2 and family confirmed the patient was a DNR and DNI. Chest x-ray revealed mild pulmonary vascular congestion with bilateral pleural effusions and underlying emphysema. EKG revealed no ST depression and no elevation, and he was in sinus rhythm with a rate of 90. ProBNP was elevated to 20,000. He was continued on BiPAP and placed on DuoNeb therapy overnight. Diuretic therapy with Lasix was initiated. Pulmonary was consulted and suggested a course of antibiotics in addition to steroids. Initially on Solu-Medrol which was transitioned to prednisone within 2 days. He remained on a course of doxycycline. An echocardiogram was performed in the setting of elevated troponin revealing an ejection fraction 60-65% with moderately reduced right ventricular systolic function. Decreased movement of the posterior mitral valve leaflet resulting in moderate to severe mitral regurgitation was also noted and pulmonary hypertension was present. Cardiology was consulted and went up on his diuretic therapy to Lasix IV 40 mg twice daily. This resulted in continued improvement of respiratory status despite the fact that he was intolerant of BiPAP most days. He was optimized as much as possible several days into the hospitalizati on and began to continually asked to go home. Ultimately a conversation was held between his 2 children and myself regarding future hospitalizations and future goals of treatment. Both his children agree that future hospitalizations are not desirable and they understand his lung disease is in. This is important as he has had 3 hospitalizations in the past 3 months for the same issue. He will likely require future hospitalizations soon. Case management was asked to instruct the family on starting hospice care when they arrive back at [facility]. This is the patient's wish at this time. He will be discharged on a short course of prednisone and doxycycline with the suggestion to continue schedule nebulizer therapy to ensure some medication is absorbed. BiPAP nightly and while asleep is desired but may not be in line with the patient's quality of life wishes. Close primary care follow-up was recommended to reevaluate medication list and goals of care that are in line with hospice situation. Patient was very hard of hearing on day of discharge, and it is questionable whether he comprehends the current decision. However his 2 children are both in agreement that this is for the best. They will continue to work with their father and his primary care doctor with this goal in mind of avoiding future hospitalizations. On physical exam lungs were clear, heart rate was normal and he was mentating at baseline. He was sent home in guarded condition with plan to transition to hospice once he has arrived back at [facility]. It is noted that he has a history of PE in February 2018 with an IVC filter reported to be denied at that time. He was not discharged on anticoagulation secondary to fall risk and history of subdural hematoma. On arrival to [facility], a CTA of the chest revealed no evidence of pulmonary thromboembolic disease, and unchanged fusiform dilation about the ascending thoracic aorta which is 4.3 x 4.4 cm with no associated dissection. While on telemetry he was found to have 7 beats of nonsustained ventricular tachycardia while on telemetry. This was in the setting of magnesium 1.6 which was replaced. Total Time Total Time Spent Total Time Spent (In Minutes): 60 Discharge Plan Discharge Items Patient Disposition: Transfer Nursing Home Fac Reason For Visit: RESPIRATORY FAILURE Discharge Diagnosis: Acute respiratory failure with hypoxia and hypercarbia Chronic hypoxemia 2/2 COPD Intolerance of BIPAP COPD exacerbation Acute diastolic CHF exacerbation Discharge Goals: Decrease discomfort Activity: Resume your previous activity Non-emergency contact: Primary Care Provider Call non-emergency contact if: you have any medication questions, your symptoms worsen, your pain is not controlled, your pain is worsening, your pain is unusual for you, your pain is concerning for you and you have a fever Follow-up/Referrals: Oscar Aguirre MD [Primary Care Provider] - Diet: Carb Consistent or DM2 and Low Sodium (2gm) Diet Texture: Dental soft (bite-sized) Diet Comment: minced and moist foods, easier to swallow Addtl Provider Instructions: Please take all medications as instructed. You will need close primary care follow-up on arrival to [facility] to discuss starting with Hospice. Your lung disease is end-stage, and Hospice is needed in order to avoid future hospitalizations which are inevitable. Please have your primary care physician review your medication list to see what can be stopped and discuss future medical treatment plans moving forward. In the meantime, please continue to use BIPAP every night and while sleeping, and continue with the medication list below. You were found to be aspirating most everything you swallow. It was discussed with your family that you would not want a feeding tube. Please understand you can eat what you want but we know this may lead to worsened breathing or respiratory infections down the road. It was a pleasure taking care of you! Please call if you have any questions or problems. You can reach a [facility] hospitalist on duty at [facility] 24 hours a day by calling [phone]. Take care of yourself. Anabella Reid, DO [facility] Hospitalist Prescriptions: New doxycycline hyclate 100 mg Capsule 100 mg PO Q12H 3 Days Qty: 6 RF: 0 prednisone 20 mg Tablet 40 mg PO DAILY 3 Days Qty: 6 RF: 0 Continued albuterol sulfate 2.5 mg /3 mL (0.083 %) solution for nebulization 2.5 mg INH Q4H PRN (Reason: Shortness Of Breath) RF: 0 pravastatin 40 mg tablet 40 mg PO HS RF: 0 levetiracetam [Keppra] 500 mg tablet 500 mg PO BID RF: 0 sennosides-docusate sodium [Senna Plus] 8.6-50 mg tablet 2 tab PO HS RF: 0 aspirin 81 mg tablet,delayed release (DR/EC) 81 mg PO QAM RF: 0 furosemide [Lasix] 20 mg tablet 20 mg PO QAM RF: 0 finasteride [Proscar] 5 mg tablet 5 mg PO QAM RF: 0 tiotropium bromide [Spiriva with HandiHaler] 18 mcg capsule, w/inhalation device 1 cap INH QAM RF: 0 hydrochlorothiazide 12.5 mg tablet 12.5 mg PO QAM RF: 0 magnesium oxide 400 mg capsule 400 mg PO QAM RF: 0 ipratropium-albuterol 0.5 mg-3 mg(2.5 mg base)/3 mL Solution For Nebulization 3 ml INHALATION QID RF: 0 polyethylene glycol 3350 17 gram/dose Powder 17 g PO QAM RF: 0 ipratropium-albuterol 0.5 mg-3 mg(2.5 mg base)/3 mL Solution For Nebulization 3 ml INHALATION Q4H PRN (Reason: Shortness Of Breath Or Wheezing) RF: 0 magnesium hydroxide [Milk of Magnesia] 400 mg/5 mL Suspension 30 ml PO DAILY PRN (Reason: Constipation) RF: 0 acetaminophen [Tylenol Extra Strength] 500 mg Tablet 500 mg PO TID RF: 0 insulin aspart U-100 [Novolog U-100 Insulin aspart] 100 unit/mL Solution 2 unit SUBCUT QDB RF: 0 gabapentin 100 mg Capsule 100 mg PO TID RF: 0 menthol [Icy Hot No Mess] 16 % Liquid 1 applic topical TID RF: 0 vit C,U-Ui-shjlb-lutein-zeaxan [PreserVision AREDS-2] 632-257-93-1 vq-obiu-ns-mg Capsule 1 tab PO QAM RF: 0 insulin aspart U-100 [Novolog U-100 Insulin aspart] 100 unit/mL solution 6 unit subcut QDL RF: 0 insulin detemir U-100 [Levemir U-100 Insulin] 100 unit/mL solution 10 units SQ HS RF: 0 fluticasone-salmeterol 113-14 mcg/actuation Aerosol Powdr Breath Activated 1 puff INHALATION Q12H RF: 0 thiamine HCl (vitamin B1) [Vitamin B-1] 100 mg Tablet 100 mg PO DAILY RF: 0 metformin 1,000 mg tablet 1,000 mg PO BIDM RF: 0 Stand-Alone Forms: [facility] Discharge Orders: Discharge Order (Routine); Ordered 05/27/18 Ordered By: Anabella Reid Admission Data Admit Date/Time: 05/22/18 13:41 Attending Provider: Anabella Reid Admit Provider: Miky Meade Primary Care Provider: Oscar Aguirre Other Providers: Eduardo Laboy ; Miky Meade ; Vini Belle Service: Telemetry
--- NOTE | 2018-05-31 07:20 | Coding Query ---
CODING QUERY To promote full compliance with coding requirements relating to patient care, provider participation is requested in all cases of office professional uncertainty. Please assist us with the question(s) below: Coding Question(s): Patient admitted with acute/chronic respiratory failure and CHF. Progress notes also document pneumonitis. Please document, if known or suspected, the etiology and type of pneumonia. Thanks for your help!! SHAHAB Brewster [facility] Physician's Response(s): Not treated for pneumonia. Acute on chronic respiratory failure 2/2 mutlifactorial etiology including acute diastolic CHF, acute COPD exacerbation, pneumonitis 2/2 chronic aspiration, atelectasis. Principal Diagnosis: "that condition established after study, to be chiefly responsible for occasioning the admission of the patient to the hospital for care." Co-Existing Principal Diagnosis: "when two or more diagnoses equally meet the criteria for principal diagnosis as determined by the circumstances of admission, diagnostic work up, and/or therapy provided, and the Alphabetic Index, Tabular List, or another coding guideline does not provide sequencing direction, any one of the diagnoses may be sequenced first." "When the physician has documented what appears to be a current diagnosis in the body of the record, but has not included the diagnosis in the final diagnostic statement, the physician should be asked whether the diagnosis should be added." (Source Coding Clinic 2 QTR90. p3-4) GEORGE
== END 2018-05-27 13:46 | DRG 189 ==
LOC: ED 10:00 → 2S 13:41 → 2E 22:55